=== PATIENT | female | born 1970 | race Caucasian/White ===

== ENCOUNTER → 2017-08-24 08:37 | Outpatient (CLI) | payer BC, SELFPAY ==
[2017-08-24 10:22] LABS: Absolute Neutrophil Count 3.5 X10^3/uL (2.0-7.7); Basophil# 0.01 X10^3/uL; Basophil% 0.2 % (0-1); Eosinophil# 0.01 X10^3/uL; Eosinophils% 0.2 % (0-5); Hematocrit 39.6 % (37-47); Hemoglobin 13.1 g/dl (12.0-15.0); Lymphocyte % 25.2 % (19-41); Mean Corp Hgb Conc 33.1 g/gl (32-36); Mean Corpuscular Hgb 29.8 pg (27.0-32.0); Mean Platelet Vol. 9.9 fl (6.2-12.0); Monocyte# 0.34 X10^3/uL; Monocyte% 6.6 % (0-10); Neutrophil # 3.48 X10^3/uL (2.7-7.7); Neutrophil % 67.6 % (47-70); Platelet Count 256 K/mm3 (150-450); RBC Distribution Width SD 42.6 fl (35.1-43.9); White Blood Count 5.2 K/mm3 (4.4-11.0)
[2017-08-24 10:25] LABS: POSITIVE COUNT NO; POSITIVE DIFFERENTIAL NO; POSITIVE MORPHOLOGY NO
[2017-08-24 10:50] LABS: Microalbumin,Random Urine 7.8 mg/L (NO RANGE EST.); Microalbumin:Creatinine Ratio 5.7 mg/g CRE (<30 mg/g CRE)
[2017-08-24 10:58] LABS: Hemoglobin A1c 5.4 % (4.2-6.3)
[2017-08-24 11:00] LABS: ALB/GLOB Ratio 0.8 RATIO (0.9-2.4); AST(SGOT) 7 U/L (15-37); Alanine Aminotransfer ALT/SGPT 11 U/L (13-56); Albumin, Serum 3.3 g/dL (3.2-5.0); Alkaline Phosphatase 42 U/L (45-117); Anion Gap 8 (5-15); BUN 12 mg/dL (7-18); BUN/Creat Ratio 15.4 RATIO (10-20); Calcium,Total 8.5 mg/dL (8.5-10.1); Chloride 105 mmol/L (98-107); Cholesterol 216 mg/dL (200); Creatinine, Serum 0.78 mg/dL (0.55-1.02); EST Glomerular Filtration Rate 85 mL/min (>60); Est Glom Filt Rate - Afr Amer 103 mL/min (>60); Globulin 3.9 g/dL (2.2-4.2); Glucose 95 mg/dL (74-106); High Density Lipoprotein 53 mg/dL; Magnesium 2.1 mg/dL (1.6-2.6); Potassium 4.1 mmol/L (3.5-5.1); Protein, Total 7.2 g/dL (6.4-8.2); Sodium Level 139 mmol/L (136-145); Thyroid Stim Hormone (TSH) 1.25 uIU/mL (0.358-3.74); Triglycerides 107 mg/dL; Very Low Density Lipoprotein 21 mg/dL (5-40)
== END ==
PROVIDERS: Family Provider Family Medicine; PCP Family Medicine; Visit Provider Family Medicine
DX: E88.81 Metabolic syndrome and other insulin resistance (principal); M79.7 Fibromyalgia
CPT/HCPCS: 36415; 80053; 80061; 82043; 82570; 83036; 83735; 84443; 85025

== ENCOUNTER → 2017-09-17 09:14 | Outpatient (CLI) | payer BC, SELFPAY ==
[2017-09-17 10:48] LABS: Vitamin B12 304 pg/mL (211-911); Vitamin D,25 Hydroxy 32.4 ng/mL (29.95-100.01)
== END ==
PROVIDERS: Visit Provider Family Medicine
DX: E55.9 Vitamin D deficiency, unspecified (principal); R53.83 Other fatigue
CPT/HCPCS: 36415; 82306; 82607; 82746

== ENCOUNTER → 2017-09-24 10:24 | Outpatient (CLI) | payer BC, SELFPAY ==
[2017-09-24 12:28] LABS: ALB/GLOB Ratio 0.9 RATIO (0.9-2.4); AST(SGOT) 10 U/L (15-37); Alanine Aminotransfer ALT/SGPT 13 U/L (13-56); Albumin, Serum 3.5 g/dL (3.2-5.0); Alkaline Phosphatase 47 U/L (45-117); Anion Gap 8 (5-15); BUN 11 mg/dL (7-18); BUN/Creat Ratio 12.6 RATIO (10-20); Calcium,Total 8.5 mg/dL (8.5-10.1); Chloride 103 mmol/L (98-107); Creatinine, Serum 0.87 mg/dL (0.55-1.02); EST Glomerular Filtration Rate 74 mL/min (>60); Est Glom Filt Rate - Afr Amer 90 mL/min (>60); Globulin 3.9 g/dL (2.2-4.2); Glucose 83 mg/dL (74-106); Protein, Total 7.4 g/dL (6.4-8.2); Sodium Level 136 mmol/L (136-145)
[2017-09-24 12:43] LABS: Hemoglobin A1c 5.4 % (4.2-6.3)
== END ==
PROVIDERS: Family Provider Family Medicine; PCP Family Medicine; Visit Provider Family Medicine
DX: E88.81 Metabolic syndrome and other insulin resistance (principal)
CPT/HCPCS: 36415; 80053; 83036

== ENCOUNTER → 2017-10-01 12:56 | Outpatient (CLI) | payer BC, SELFPAY ==
--- NOTE | 2017-10-01 13:00 | RAD_ITS ---
STUDY: X-RAY - PARANASAL SINUSES REASON FOR EXAM: Female, 47 years old. Recurrent sinus infection. TECHNIQUE: 3 view(s) of the paranasal sinuses were obtained. COMPARISON: None. FINDINGS: Normal visualized frontal, maxillary, ethmoidal and sphenoid sinuses. Normal visualized facial bones. The soft tissue structures are unremarkable. RAD/Sinuses min 3 Views IMPRESSION: No evidence of definitive paranasal sinus opacity or fluid layering. Electronically Signed: Louis Pérez DO at 20:58 EDT , Service support ,
== END ==
PROVIDERS: Family Provider Family Medicine; PCP Family Medicine; Visit Provider Family Medicine
DX: R42 Dizziness and giddiness (principal)
CPT/HCPCS: 70220

== ENCOUNTER → 2018-03-05 08:23 | Outpatient (CLI) | payer BC, SELFPAY ==
[2018-03-05 10:39] LABS: Absolute Lymphocyte Count 1.31 X10^3/ul (0.83-4.51); Absolute Neutrophil Count 3.5 X10^3/uL (2.0-7.7); Basophil# 0.04 X10^3/uL; Basophil% 0.8 % (0-1); Hematocrit 38.9 % (37-47); Hemoglobin 12.7 g/dl (12.0-15.0); Lymphocyte # 1.31 X10^3/ul (4.0); Lymphocyte % 25.2 % (19-41); Mean Corp Hgb Conc 32.6 g/gl (32-36); Mean Corpuscular Hgb 29.2 pg (27.0-32.0); Mean Corpuscular Volume 89.4 fL (81-99); Mean Platelet Vol. 9.3 fl (6.2-12.0); Monocyte# 0.33 X10^3/uL; Monocyte% 6.3 % (0-10); Neutrophil # 3.51 X10^3/uL (2.7-7.7); Neutrophil % 67.5 % (47-70); Platelet Count 244 K/mm3 (150-450); RBC Distribution Width CV 12.9 % (11.6-14.6); RBC Distribution Width SD 42.3 fl (35.1-43.9); Red Blood Count 4.35 M/mm3 (4.2-5.4); White Blood Count 5.2 K/mm3 (4.4-11.0)
[2018-03-05 10:41] LABS: POSITIVE COUNT NO; POSITIVE DIFFERENTIAL NO; POSITIVE MORPHOLOGY NO
[2018-03-05 11:34] LABS: ALB/GLOB Ratio 0.8 RATIO (0.9-2.4); AST(SGOT) 10 U/L (15-37); Alanine Aminotransfer ALT/SGPT 11 U/L (13-56); Albumin, Serum 2.9 g/dL (3.2-5.0); Alkaline Phosphatase 43 U/L (45-117); Anion Gap 12 (5-15); BUN 12 mg/dL (7-18); Calcium,Total 8.4 mg/dL (8.5-10.1); Chloride 106 mmol/L (98-107); Creatinine, Serum 0.75 mg/dL (0.55-1.02); EST Glomerular Filtration Rate 88 mL/min (>60); Est Glom Filt Rate - Afr Amer 107 mL/min (>60); Free T3 2.6 pg/mL (2.18-3.98); Globulin 3.7 g/dL (2.2-4.2); Glucose 85 mg/dL (74-106); Potassium 3.9 mmol/L (3.5-5.1); Protein, Total 6.6 g/dL (6.4-8.2); Sodium Level 142 mmol/L (136-145); T4 Free Direct 1.05 ng/dL (0.76-1.46); Thyroid Stim Hormone (TSH) 2.53 uIU/mL (0.358-3.74)
== END ==
LOC: MTLAB 08:32 → MFPLAB 08:59
PROVIDERS: Family Provider Family Medicine; PCP Family Medicine; Visit Provider Family Medicine
DX: E03.9 Hypothyroidism, unspecified (principal); M79.7 Fibromyalgia
CPT/HCPCS: 36415; 80053; 84439; 84443; 84481; 85025

== ENCOUNTER → 2018-06-07 09:01 | Outpatient (CLI) | payer BC, SELFPAY ==
[2018-06-07 10:15] LABS: Absolute Lymphocyte Count 1.29 X10^3/ul (0.83-4.51); Absolute Neutrophil Count 4.6 X10^3/uL (2.0-7.7); Basophil# 0.02 X10^3/uL; Basophil% 0.3 % (0-1); Hematocrit 40.1 % (37-47); Hemoglobin 13.2 g/dl (12.0-15.0); Lymphocyte # 1.29 X10^3/ul (4.0); Lymphocyte % 20.8 % (19-41); Mean Corp Hgb Conc 32.9 g/gl (32-36); Mean Corpuscular Hgb 28.9 pg (27.0-32.0); Mean Corpuscular Volume 87.9 fL (81-99); Mean Platelet Vol. 9.5 fl (6.2-12.0); Monocyte# 0.29 X10^3/uL; Monocyte% 4.7 % (0-10); Neutrophil # 4.59 X10^3/uL (2.7-7.7); Neutrophil % 74.2 % (47-70); Platelet Count 256 K/mm3 (150-450); RBC Distribution Width CV 12.9 % (11.6-14.6); RBC Distribution Width SD 41.7 fl (35.1-43.9); Red Blood Count 4.56 M/mm3 (4.2-5.4); White Blood Count 6.2 K/mm3 (4.4-11.0)
[2018-06-07 10:16] LABS: POSITIVE COUNT NO; POSITIVE DIFFERENTIAL NO; POSITIVE MORPHOLOGY NO
[2018-06-07 10:26] LABS: Erythrocyte Sedimentation Rate 14 mm/hr (0-20)
[2018-06-07 10:41] LABS: Vitamin D,25 Hydroxy 30.9 ng/mL (29.95-100.01)
[2018-06-07 10:56] LABS: ALB/GLOB Ratio 0.8 RATIO (0.9-2.4); AST(SGOT) 14 U/L (15-37); Alanine Aminotransfer ALT/SGPT 15 U/L (13-56); Albumin, Serum 3.4 g/dL (3.2-5.0); Alkaline Phosphatase 49 U/L (45-117); Anion Gap 11 (5-15); BUN 11 mg/dL (7-18); BUN/Creat Ratio 13.5 RATIO (10-20); Calcium,Total 8.9 mg/dL (8.5-10.1); Chloride 107 mmol/L (98-107); Creatinine, Serum 0.82 mg/dL (0.55-1.02); EST Glomerular Filtration Rate 80 mL/min (>60); Est Glom Filt Rate - Afr Amer 97 mL/min (>60); Globulin 4.1 g/dL (2.2-4.2); Glucose 91 mg/dL (74-106); Magnesium 1.9 mg/dL (1.6-2.6); Potassium 4.3 mmol/L (3.5-5.1); Protein, Total 7.5 g/dL (6.4-8.2); Rheumatoid Factor < 10.0 IU/mL (<15); Sodium Level 139 mmol/L (136-145); Uric Acid 4.9 mg/dL (2.6-6.0)
[2018-06-10 15:25] LABS: ANTINUCLEAR ANTIBODIES DIRECT Negative (Negative)
--- OUTSIDE RECORDS SUMMARY | 2018-07-23 22:14 | XMS RPT_ITS ---
:1970 Author Organization OH[employer] Support Name Relationship Address Phone JULEE TURPIN Unavailable [address] + [place] [address] [employer] Unavailable [address] [phone] [place] [address] JULEE TURPIN Unavailable [address] + [place] [address] [employer] Unavailable [address] [phone] [place] [address] MAYANK COLLINS Unavailable / [phone] [place] [address] JULEE TURPIN Unavailable [address] [phone] [place] [address] [employer] Unavailable [address] [phone] [place] [address] MAYANK COLLINS Unavailable / [phone] [place] [address] JULEE TURPIN Unavailable [address] [phone] [place] [address] [employer] Unavailable [address] [phone] [place] [address] MAYANK COLLINS Unavailable / [phone] [place] [address] JULEE TURPIN Unavailable [address] [phone] [place] [address] [employer] Unavailable [address] [phone] [place] [address] MAYANK COLLINS Unavailable / [phone] [place] [address] JULEE TURPIN Unavailable [address] [phone] [place] [address] [employer] Unavailable [address] [phone] [place] [address] Care Team Providers Name Role Phone BASILIO LONG Attending Unavailable Walton, Aroldo Attending Unavailable Walton, Aroldo Primary Care Unavailable Walton, Aroldo Attending Unavailable Walton, Aroldo Primary Care Unavailable Matthew Zayas Attending Unavailable Walton, Aroldo Attending Unavailable Walton, Aroldo Primary Care Unavailable Walton, Aroldo Attending Unavailable Walton, Aroldo Referring Unavailable Walton, Aroldo Primary Care Unavailable Walton, Aroldo Attending Unavailable Walton, Aroldo Referring Unavailable Walton, Aroldo Primary Care Unavailable PROBLEMS PROBLEMS DATE TYPE CONDITION / CODE ATTENDING STATUS SOURCE 06/07/2018 Unknown M25.40 - Effusion, Walton, Aroldo Active [facility] unspecified joint Community / M25.40(ICD-10) Hospital Repository 03/05/2018 Unknown E03.9 - Walton, Aroldo Active [facility] Hypothyroidism, Community unspecified / Hospital E03.9(ICD-10) Repository 03/05/2018 Unknown M79.7 - Walton, Aroldo Active [place] Fibromyalgia / Community M79.7(ICD-10) Hospital Repository 10/01/2017 Unknown R42 - Dizziness Walton, Aroldo Active [facility] and giddiness / Community R42(ICD-10) Hospital Repository 09/24/2017 Unknown E88.81 - Metabolic Walton, Aroldo Active [place] syndrome / Community E88.81(ICD-10) Hospital Repository 09/24/2017 Unknown 277.7 - Walton, Aroldo Active [facility] Dysmetabolic Community syndrome X / Hospital 277.7(ICD-9) Repository PROCEDURES PROCEDURES No Procedure Records FoundRESULTS RESULTS CBC W/DIFF, AUTOMATED Collected: 06/07/2018 Status: F Source: [place] 9:02 AM [facility] REPOSITORY TYPE CODE TESTS RESULT OUT OF RANGE REFERENCE UNITS LAB L100.1000 4.4-11.0 K/mm3 Normal WBC 6.2 LAB L100.1200 4.2-5.4 M/mm3 Normal RBC 4.56 LAB L100.1300 12.0-15.0 g/dl Normal HGB 13.2 LAB L100.1400 37-47 % Normal HCT 40.1 LAB L100.1500 81-99 fL Normal MCV 87.9 LAB L100.1600 27.0-32.0 pg Normal MCH 28.9 LAB L100.1700 32-36 g/gl Normal MCHC 32.9 LAB L100.1810 11.6-14.6 % Normal RDW CV 12.9 LAB L100.1820 35.1-43.9 fl Normal RDW SD 41.7 LAB L100.1900 150-450 K/mm3 Normal PLT 256 LAB L100.2000 6.2-12.0 fl Normal MPV 9.5 LAB L100.2100 47-70 % High NEUT% 74.2 LAB L100.2200 19-41 % Normal LY% 20.8 LAB L100.2300 0-10 % Normal MONO% 4.7 LAB L100.2400 0-5 % Normal EO% 0.0 LAB L100.2500 0-1 % Normal BASO% 0.3 LAB L100.2550 0.0-0.9 % Normal IM GRAN % 0.000 Result Comment: IG% - Immature Granulocytes (promyelocytes, myelocytes and metamyelocytes) > 1% indicates that a LEFT SHIFT is Present. LAB L100.2620 2.0-7.7 X10 3/uL Normal Absolute Neut 4.6 LAB L100.2720 0.83-4.51 X10 3/ul Normal Absolute Lymph 1.29 Performed By: #### L100.0100, L101.9900, L506.1000, L500.4050, L501.1400, L501.5200, L501.9520, L505.7010 #### [facility] [address] [place] [address]. [place], [place], [id number] #### L3100.5475 #### [facility] (refer to report for specific site) refer to report for address and phone number ERYTHROCYTE SED RATE Collected: 06/07/2018 Status: F Source: [place] 9:02 AM [facility] REPOSITORY TYPE CODE TESTS RESULT OUT OF RANGE REFERENCE UNITS LAB L102.0000 0-20 mm/hr Normal SED RATE 14 Performed By: #### L100.0100, L101.9900, L506.1000, L500.4050, L501.1400, L501.5200, L501.9520, L505.7010 #### [facility] [address] [facility] [place], [place], [address] #### L3100.5475 #### [facility] (refer to report for specific site) refer to report for address and phone number VITAMIN D,25 HYDROXY Collected: 06/07/2018 Status: F Source: [place] 9:02 AM [facility] REPOSITORY TYPE CODE TESTS RESULT OUT OF RANGE REFERENCE UNITS LAB L506.1000 29.95-100.01 ng/mL Normal Vitamin D 30.9 25-OH Result Comment: Vitamin D 25(OH) Status Range Deficiency <20 ng/mL (50nmol/L) Insuffciency 20 - 30 ng/mL (50 - 75 nmol/L) Sufficiency 30 - 100 ng/mL (75 - 250 nmol/L) Toxicity >100 ng/mL (>250 nmol/L) Performed By: #### L100.0100, L101.9900, L506.1000, L500.4050, L501.1400, L501.5200, L501.9520, L505.7010 #### [facility] [address] [facility] [place], [address] #### L3100.5475 #### [facility] (refer to report for specific site) refer to report for address and phone number COMPREHENSIVE METABOLIC Collected: 06/07/2018 Status: F Source: [facility] 9:02 AM [facility] REPOSITORY TYPE CODE TESTS RESULT OUT OF RANGE REFERENCE UNITS LAB L501.0100 74-106 mg/dL Normal GLU 91 Result Comment: Please note revised GLUCOSE reference range effective 2017. LAB L501.1000 7-18 mg/dL Normal BUN 11 LAB L501.1100 0.55-1.02 mg/dL Normal CREAT,SERUM 0.82 Result Comment: The validity of the calculated GFR AND GFRAA in patients over 70 years has not been determined. Clinical correlation is essential. LAB L501.1110 >60 mL/min Normal EST GFR 80 Result Comment: Non- GFR Calc LAB L501.1115 >60 mL/min Normal EST GFR - AA 97 Result Comment: GFR Calc LAB L501.1300 10-20 RATIO Normal BUN/CRE 13.5 LAB L501.1500 6.4-8.2 g/dL T Normal PROT 7.5 LAB L501.1800 3.2-5.0 g/dL Normal ALB 3.4 LAB L501.1950 2.2-4.2 g/dL Normal GLOB 4.1 LAB L501.2000 0.9-2.4 RATIO Low A/G 0.8 LAB L501.2200 8.5-10.1 mg/dL CA Normal 8.9 LAB L501.4100 15-37 U/L Low AST 14 LAB L501.4305 45-117 U/L Normal ALK P 49 LAB L501.4405 13-56 U/L Normal ALT 15 LAB L501.4600 0.20-1.00 mg/dL T Normal BILI 0.20 LAB L501.5300 136-145 mmol/L NA Normal 139 LAB L501.5600 3.5-5.1 mmol/L K Normal 4.3 LAB L501.5900 98-107 mmol/L CL Normal 107 LAB L501.6100 21.0-32.0 mmol/L Normal CO2 21.0 LAB L501.6200 5-15 Normal GAP 11 Performed By: #### L100.0100, L101.9900, L506.1000, L500.4050, L501.1400, L501.5200, L501.9520, L505.7010 #### [facility] [address] [facility] [place], [place], [address] #### L3100.5475 #### [facility] (refer to report for specific site) refer to report for address and phone number URIC ACID Collected: 06/07/2018 Status: F Source: [place] 9:02 AM [facility] REPOSITORY TYPE CODE TESTS RESULT OUT OF RANGE REFERENCE UNITS LAB L501.1400 2.6-6.0 mg/dL Normal URIC 4.9 Result Comment: The drugs N-Acetylcysteine and Metamizole may falsely depress this assay. Performed By: #### L100.0100, L101.9900, L506.1000, L500.4050, L501.1400, L501.5200, L501.9520, L505.7010 #### [facility] [address] [place] [address], [id number] #### L3100.5475 #### [facility] (refer to report for specific site) refer to report for address and phone number MAGNESIUM Collected: 06/07/2018 Status: F Source: [place] 9:02 AM [facility] REPOSITORY TYPE CODE TESTS RESULT OUT OF RANGE REFERENCE UNITS LAB L501.5200 1.6-2.6 mg/dL Normal MG 1.9 Performed By: #### L100.0100, L101.9900, L506.1000, L500.4050, L501.1400, L501.5200, L501.9520, L505.7010 #### [facility] [address] [place] [address], [address] #### L3100.5475 #### [facility] (refer to report for specific site) refer to report for address and phone number THYROID STIM HORMONE Collected: 06/07/2018 Status: F Source: [place] (TSH) 9:02 AM [facility] REPOSITORY TYPE CODE TESTS RESULT OUT OF RANGE REFERENCE UNITS LAB L501.9520 0.358-3.74 uIU/mL Normal TSH 1.20 Performed By: #### L100.0100, L101.9900, L506.1000, L500.4050, L501.1400, L501.5200, L501.9520, L505.7010 #### [facility] [address] [place] [address], [id number] #### L3100.5475 #### [facility] (refer to report for specific site) refer to report for address and phone number RHEUMATOID FACTOR Collected: 06/07/2018 Status: F Source: [place] 9:02 AM [facility] REPOSITORY TYPE CODE TESTS RESULT OUT OF RANGE REFERENCE UNITS LAB L505.7010 <15 IU/mL Normal RHEUMATOID FAC < 10.0 Performed By: #### L100.0100, L101.9900, L506.1000, L500.4050, L501.1400, L501.5200, L501.9520, L505.7010 #### [facility] [address] [place], [place], [address] #### L3100.5475 #### [facility] (refer to report for specific site) refer to report for address and phone number ANTINUCLEAR ANTIBODIES Collected: 06/07/2018 Status: F Source: [place] DIRECT 9:02 AM [facility] REPOSITORY TYPE CODE TESTS RESULT OUT OF RANGE REFERENCE UNITS LAB L3100.5475 Negative Normal Negative VICKEY-DIRECT Result Comment: Performed at: - [facility] [id number] Time Signal Wirer: Jairo Hardy PhD, Phone: [phone] Performed By: #### L100.0100, L101.9900, L506.1000, L500.4050, L501.1400, L501.5200, L501.9520, L505.7010 #### [facility] [address] [place], [place], [address] #### L3100.5475 #### [facility] (refer to report for specific site) refer to report for address and phone number CRP Collected: 06/07/2018 Status: F Source: [place] 9:02 AM [facility] REPOSITORY TYPE CODE TESTS RESULT OUT OF RANGE REFERENCE UNITS LAB L501.6710 0.0-3.0 mg/L High 10.40 C-REACTIVE PROT Result Comment: C-Reactive Protein (CRP) provides useful information for the diagnosis, therapy and monitoring of inflammatory processes and associated diseases. For the evaluation of Relative Risk for Cardiovascular Disease, a High Sensitivity CRP (HSCRP) should be ordered. Performed By: #### L501.6710 #### [facility] [address] [place], [place], [id number] CBC W/DIFF, AUTOMATED Collected: 03/05/2018 Status: F Source: [place] 9:00 AM [facility] REPOSITORY TYPE CODE TESTS RESULT OUT OF RANGE REFERENCE UNITS LAB L100.1000 4.4-11.0 K/mm3 Normal WBC 5.2 LAB L100.1200 4.2-5.4 M/mm3 Normal RBC 4.35 LAB L100.1300 12.0-15.0 g/dl Normal HGB 12.7 LAB L100.1400 37-47 % Normal HCT 38.9 LAB L100.1500 81-99 fL Normal MCV 89.4 LAB L100.1600 27.0-32.0 pg Normal MCH 29.2 LAB L100.1700 32-36 g/gl Normal MCHC 32.6 LAB L100.1810 11.6-14.6 % Normal RDW CV 12.9 LAB L100.1820 35.1-43.9 fl Normal RDW SD 42.3 LAB L100.1900 150-450 K/mm3 Normal PLT 244 LAB L100.2000 6.2-12.0 fl Normal MPV 9.3 LAB L100.2100 47-70 % Normal NEUT% 67.5 LAB L100.2200 19-41 % Normal LY% 25.2 LAB L100.2300 0-10 % Normal MONO% 6.3 LAB L100.2400 0-5 % Normal EO% 0.0 LAB L100.2500 0-1 % Normal BASO% 0.8 LAB L100.2550 0.0-0.9 % Normal IM GRAN % 0.200 Result Comment: IG% - Immature Granulocytes (promyelocytes, myelocytes and metamyelocytes) > 1% indicates that a LEFT SHIFT is Present. LAB L100.2620 2.0-7.7 X10 3/uL Normal Absolute Neut 3.5 LAB L100.2720 0.83-4.51 X10 3/ul Normal Absolute Lymph 1.31 Performed By: #### L100.0100 #### [facility] [place], [address] COMPREHENSIVE METABOLIC Collected: 03/05/2018 Status: F Source: [facility] 9:00 AM [facility] REPOSITORY TYPE CODE TESTS RESULT OUT OF RANGE REFERENCE UNITS LAB L501.0100 74-106 mg/dL Normal GLU 85 Result Comment: Please note revised GLUCOSE reference range effective 2017. LAB L501.1000 7-18 mg/dL Normal BUN 12 LAB L501.1100 0.55-1.02 mg/dL Normal CREAT,SERUM 0.75 Result Comment: The validity of the calculated GFR AND GFRAA in patients over 70 years has not been determined. Clinical correlation is essential. LAB L501.1110 >60 mL/min Normal EST GFR 88 Result Comment: Non- GFR Calc LAB L501.1115 >60 mL/min Normal EST GFR - AA 107 Result Comment: GFR Calc LAB L501.1300 10-20 RATIO Normal BUN/CRE 16.0 LAB L501.1500 6.4-8.2 g/dL T Normal PROT 6.6 LAB L501.1800 3.2-5.0 g/dL Low ALB 2.9 LAB L501.1950 2.2-4.2 g/dL Normal GLOB 3.7 LAB L501.2000 0.9-2.4 RATIO Low A/G 0.8 LAB L501.2200 8.5-10.1 mg/dL Low CA 8.4 LAB L501.4100 15-37 U/L Low AST 10 LAB L501.4305 45-117 U/L Low ALK P 43 LAB L501.4405 13-56 U/L Low ALT 11 LAB L501.4600 0.20-1.00 mg/dL T Normal BILI 0.20 LAB L501.5300 136-145 mmol/L NA Normal 142 LAB L501.5600 3.5-5.1 mmol/L K Normal 3.9 LAB L501.5900 98-107 mmol/L CL Normal 106 LAB L501.6100 21.0-32.0 mmol/L Normal CO2 24.0 LAB L501.6200 5-15 Normal GAP 12 Performed By: #### L500.4050, L501.00726, L501.9520, L506.0400 #### [facility] [address] [place], [place], [id number] FREE T3 Collected: 03/05/2018 Status: F Source: [place] 9:00 AM [facility] REPOSITORY TYPE CODE TESTS RESULT OUT OF RANGE REFERENCE UNITS LAB L501.25658 2.18-3.98 pg/mL Normal FREE T3 2.6 Performed By: #### L500.4050, L501.41026, L501.9520, L506.0400 #### [facility] [address] [place], [address] THYROID STIM HORMONE Collected: 03/05/2018 Status: F Source: [place] (TSH) 9:00 AM [facility] REPOSITORY TYPE CODE TESTS RESULT OUT OF RANGE REFERENCE UNITS LAB L501.9520 0.358-3.74 uIU/mL Normal TSH 2.53 Performed By: #### L500.4050, L501.84439, L501.9520, L506.0400 #### [facility] [address] [place], [address] T4 FREE DIRECT Collected: 03/05/2018 Status: F Source: [place] 9:00 AM [facility] REPOSITORY TYPE CODE TESTS RESULT OUT OF RANGE REFERENCE UNITS LAB L506.0400 0.76-1.46 ng/dL Normal T4 FREE 1.05 DIRECT Performed By: #### L500.4050, L501.71256, L501.9520, L506.0400 #### [facility] [address] [place], [address] SINUSES MIN 3 VIEWS Observed: 10/01/2017 Status: F Source: [place] 1:00 PM [facility] REPOSITORY [facility] Imaging Services [address] [place] [address] Sinuses min 3 Views MR#: [id number] Acct: [id number] Name: ROMEO TURPIN Rep #: [id number] : 1970 F 47 From: Louis Pérez DO PCP: Aroldo Walton MD Status: REG CLI Study: Sinuses min 3 Views Date of Exam: 10/01/17 Exam# [id number] Ordering Dr: Aroldo Walton MD STUDY: X-RAY - PARANASAL SINUSES REASON FOR EXAM: Female, 47 years old. Recurrent sinus infection. TECHNIQUE: 3 view(s) of the paranasal sinuses were obtained. COMPARISON: None. FINDINGS: Normal visualized frontal, maxillary, ethmoidal and sphenoid sinuses. Normal visualized facial bones. The soft tissue structures are unremarkable. RAD/Sinuses min 3 Views IMPRESSION: No evidence of definitive paranasal sinus opacity or fluid layering. Electronically Signed: Louis DO Beto at 20:58 EDT , Service support , CC: Aroldo Walton MD Time Broker: Signed COMPREHENSIVE METABOLIC Collected: 09/24/2017 Status: F Source: [place] PROFIL 10:13 AM [facility] REPOSITORY Order Comment: Order Date: 09/24/17 Order Info: 0786-1 - CMP TYPE CODE TESTS RESULT OUT OF RANGE REFERENCE UNITS LAB L501.0100 74-106 mg/dL Normal GLU 83 Result Comment: Please note revised GLUCOSE reference range effective 2017. LAB L501.1000 7-18 mg/dL Normal BUN 11 LAB L501.1100 0.55-1.02 mg/dL Normal CREAT,SERUM 0.87 Result Comment: The validity of the calculated GFR AND GFRAA in patients over 70 years has not been determined. Clinical correlation is essential. LAB L501.1110 >60 mL/min Normal EST GFR 74 Result Comment: Non- GFR Calc LAB L501.1115 >60 mL/min Normal EST GFR - AA 90 Result Comment: GFR Calc LAB L501.1300 10-20 RATIO Normal BUN/CRE 12.6 LAB L501.1500 6.4-8.2 g/dL T Normal PROT 7.4 LAB L501.1800 3.2-5.0 g/dL Normal ALB 3.5 LAB L501.1950 2.2-4.2 g/dL Normal GLOB 3.9 LAB L501.2000 0.9-2.4 RATIO Normal A/G 0.9 LAB L501.2200 8.5-10.1 mg/dL CA Normal 8.5 LAB L501.4100 15-37 U/L Low AST 10 LAB L501.4305 45-117 U/L Normal ALK P 47 LAB L501.4405 13-56 U/L Normal ALT 13 Result Comment: Please note revised ALT reference range effective 2017. LAB L501.4600 0.20-1.00 mg/dL Normal T BILI 0.20 LAB L501.5300 136-145 mmol/L Normal NA 136 LAB L501.5600 3.5-5.1 mmol/L Normal K 4.0 LAB L501.5900 98-107 mmol/L Normal CL 103 LAB L501.6100 21.0-32.0 mmol/L Normal CO2 25.0 LAB L501.6200 5-15 Normal GAP 8 Performed By: #### L500.4050, L501.9985 #### [facility] [address] [place], [address] HEMOGLOBIN A1C Collected: 09/24/2017 Status: F Source: [place] 10:13 AM [facility] REPOSITORY Order Comment: Order Date: 09/24/17 Order Info: 4548-4 - A1C TYPE CODE TESTS RESULT OUT OF RANGE REFERENCE UNITS LAB L501.9985 4.2-6.3 % Normal HGB A1C 5.4 Performed By: #### L500.4050, L501.9985 #### [facility] [address] [place], [address] VITAMIN B12 Collected: 09/17/2017 Status: F Source: [place] 9:15 AM [facility] REPOSITORY Order Comment: Order Date: 09/17/17 Order Info: 2132-9 - B12 Order Info: 68916-2 - VITD25 TYPE CODE TESTS RESULT OUT OF RANGE REFERENCE UNITS LAB L503.0105 211-911 pg/mL Normal Vitamin B12 304 Performed By: #### L503.0105, L506.1000, L506.0250 #### [facility] [address] [place], [address] VITAMIN D,25 HYDROXY Collected: 09/17/2017 Status: F Source: [place] 9:15 AM [facility] REPOSITORY Order Comment: Order Date: 09/17/17 Order Info: 2132-9 - B12 Order Info: 24900-8 - VITD25 TYPE CODE TESTS RESULT OUT OF RANGE REFERENCE UNITS LAB L506.1000 29.95-100.01 ng/mL Normal Vitamin D 32.4 25-OH Result Comment: Vitamin D 25(OH) Status Range Deficiency <20 ng/mL (50nmol/L) Insuffciency 20 - 30 ng/mL (50 - 75 nmol/L) Sufficiency 30 - 100 ng/mL (75 - 250 nmol/L) Toxicity >100 ng/mL (>250 nmol/L) Performed By: #### L503.0105, L506.1000, L506.0250 #### [facility] [address] [place], [address] FOLATES, (FOLIC ACID) Collected: 09/17/2017 Status: F Source: [place] 9:15 AM [facility] REPOSITORY Order Comment: Order Date: 09/17/17 Order Info: 2284-8 - FOLS Is Patient Taking Vitamins or Folic Acid Supplements? N TYPE CODE TESTS RESULT OUT OF RANGE REFERENCE UNITS LAB L506.0250 3.1-55.4 ng/mL Normal FOLATES 11.20 Result Comment: Slight Hemolysis, Result may be falsely increased. Performed By: #### L503.0105, L506.1000, L506.0250 #### [facility] [address] [place], [place], [address] CBC W/DIFF, AUTOMATED Collected: 08/24/2017 Status: F Source: [place] 8:40 AM [facility] REPOSITORY TYPE CODE TESTS RESULT OUT OF RANGE REFERENCE UNITS LAB L100.1000 4.4-11.0 K/mm3 Normal WBC 5.2 LAB L100.1200 4.2-5.4 M/mm3 Normal RBC 4.40 LAB L100.1300 12.0-15.0 g/dl Normal HGB 13.1 LAB L100.1400 37-47 % Normal HCT 39.6 LAB L100.1500 81-99 fL Normal MCV 90.0 LAB L100.1600 27.0-32.0 pg Normal MCH 29.8 LAB L100.1700 32-36 g/gl Normal MCHC 33.1 LAB L100.1810 11.6-14.6 % Normal RDW CV 13.0 LAB L100.1820 35.1-43.9 fl Normal RDW SD 42.6 LAB L100.1900 150-450 K/mm3 Normal PLT 256 LAB L100.2000 6.2-12.0 fl Normal MPV 9.9 LAB L100.2100 47-70 % Normal NEUT% 67.6 LAB L100.2200 19-41 % Normal LY% 25.2 LAB L100.2300 0-10 % Normal MONO% 6.6 LAB L100.2400 0-5 % Normal EO% 0.2 LAB L100.2500 0-1 % Normal BASO% 0.2 LAB L100.2550 0.0-0.9 % Normal IM GRAN % 0.200 Result Comment: IG% - Immature Granulocytes (promyelocytes, myelocytes and metamyelocytes) > 1% indicates that a LEFT SHIFT is Present. LAB L100.2620 2.0-7.7 X10 3/uL Normal Absolute Neut 3.5 LAB L100.2720 0.83-4.51 X10 3/ul Normal Absolute Lymph 1.30 Performed By: #### L100.0100 #### [facility] [address] [address] [place], [place], [id number] MICROALB:CREAT Collected: 08/24/2017 Status: F Source: [facility] UR 8:40 AM [facility] REPOSITORY TYPE CODE TESTS RESULT OUT OF RANGE REFERENCE UNITS LAB L501.1200 NO RANGE EST. mg/dL Normal UR CREAT 137.00 LAB L502.0500 NO RANGE EST. mg/L Normal 7.8 MICROALBUMIN ,UR LAB L502.0600 <30 mg/g CRE mg/g CRE Normal 5.7 MALB:CREAT Performed By: #### L502.0250 #### [facility] [address] [address] [place], [place], [address] HEMOGLOBIN A1C Collected: 08/24/2017 Status: F Source: [place] 8:40 AM [facility] REPOSITORY TYPE CODE TESTS RESULT OUT OF RANGE REFERENCE UNITS LAB L501.9985 4.2-6.3 % Normal HGB A1C 5.4 Performed By: #### L501.9985 #### [facility] [address] [facility] [address] [place], [place], [address] COMPREHENSIVE METABOLIC Collected: 08/24/2017 Status: F Source: [place] PROFIL 8:40 AM [facility] REPOSITORY TYPE CODE TESTS RESULT OUT OF RANGE REFERENCE UNITS LAB L501.0100 74-106 mg/dL Normal GLU 95 Result Comment: Please note revised GLUCOSE reference range effective 2017. LAB L501.1000 7-18 mg/dL Normal BUN 12 LAB L501.1100 0.55-1.02 mg/dL Normal CREAT,SERUM 0.78 Result Comment: The validity of the calculated GFR AND GFRAA in patients over 70 years has not been determined. Clinical correlation is essential. LAB L501.1110 >60 mL/min Normal EST GFR 85 Result Comment: Non- GFR Calc LAB L501.1115 >60 mL/min Normal EST GFR - AA 103 Result Comment: GFR Calc LAB L501.1300 10-20 RATIO Normal BUN/CRE 15.4 LAB L501.1500 6.4-8.2 g/dL T Normal PROT 7.2 LAB L501.1800 3.2-5.0 g/dL Normal ALB 3.3 LAB L501.1950 2.2-4.2 g/dL Normal GLOB 3.9 LAB L501.2000 0.9-2.4 RATIO Low A/G 0.8 LAB L501.2200 8.5-10.1 mg/dL CA Normal 8.5 LAB L501.4100 15-37 U/L Low AST 7 LAB L501.4305 45-117 U/L Low ALK P 42 LAB L501.4405 13-56 U/L Low ALT 11 Result Comment: Please note revised ALT reference range effective 2017. LAB L501.4600 0.20-1.00 mg/dL Normal T BILI 0.20 LAB L501.5300 136-145 mmol/L Normal NA 139 LAB L501.5600 3.5-5.1 mmol/L Normal K 4.1 LAB L501.5900 98-107 mmol/L Normal CL 105 LAB L501.6100 21.0-32.0 mmol/L Normal CO2 26.0 LAB L501.6200 5-15 Normal GAP 8 Performed By: #### L500.4050, L500.4100, L501.5200, L501.9520 #### [facility] [address] [place], [place], [id number] LIPID PROFILE Collected: 08/24/2017 Status: F Source: DANIEL 8:40 AM [facility] [place] REPOSITORY TYPE CODE TESTS RESULT OUT OF RANGE REFERENCE UNITS LAB L501.4900 200 mg/dL High CHOL 216 Result Comment: <200 mg/dL Desirable 200-240 mg/dL Borderline >240 mg/dL High Risk LAB L501.5000 mg/dL Normal TRIG 107 Result Comment: The drugs N-Acetylcysteine and Metamizole may falsely depress this assay. Serum Triglycerides Reference Interval Normal <150 mg/dL Borderline high 150 - 199 mg/dL High 200 - 499 mg/dL Very High > or = 500 mg/dL LAB L501.6400 mg/dL Normal HDL 53 Result Comment: The drugs N-Acetylcysteine and Metamizole may falsely depress this assay. Reference Range HDL <40 mg/dL Low HDL Cholesterol HDL >or= 60 mg/dL High HDL Cholesterol LAB L501.6500 0-130 mg/dL High LDL 142 LAB L501.6600 5-40 mg/dL Normal VLDL 21 Performed By: #### L500.4050, L500.4100, L501.5200, L501.9520 #### [facility] [address] [place], [place], [address] MAGNESIUM Collected: 08/24/2017 Status: F Source: DANIEL 8:40 AM [facility] REPOSITORY TYPE CODE TESTS RESULT OUT OF RANGE REFERENCE UNITS LAB L501.5200 1.6-2.6 mg/dL Normal MG 2.1 Result Comment: Please note revised Magnesium reference range effective 2017. Performed By: #### L500.4050, L500.4100, L501.5200, L501.9520 #### [facility] [address] [place], [place], [address] THYROID STIM HORMONE Collected: 08/24/2017 Status: F Source: DANIEL (TSH) 8:40 AM [facility] REPOSITORY TYPE CODE TESTS RESULT OUT OF RANGE REFERENCE UNITS LAB L501.9520 0.358-3.74 uIU/mL Normal TSH 1.25 Performed By: #### L500.4050, L500.4100, L501.5200, L501.9520 #### [facility] [address] [place], [address] PROGRESS Observed: 08/03/2017 Status: COMPLETED Source: MARSTON 11:04 AM [facility] [place] REPOSITORY HNO ID: [id number] Author: Basilio Long Service: (none) Author Type: Psychologist Type: Progress Notes Filed: 08/03/2017 12:37 PM Note Text: [facility] Progress Note Romeo Lucas Joe 08/03/2017 [id number] Provider: Basilio Long, PHD CPT Code: 82856 Psychiatric diagnostic evaluation Time: Approximately 50 minutes was spent in therapy. Parties Present: Patient Patient Presentation/Concerns: INITIAL VISIT Manic Depressive Disorder and on Lamictal about 8 years before that she had periods of irritability, reduced need for sleep, undisclosed affairs, and none of this since Lamictal She was born in [place].. family moved to [place] for father's job and pt went back to be w a boyfriend who she is now to with12 and 15 yo girls doing well is a bit gruff and they dont have much time between kids and both employed... 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 the woman was a close friend and the fellow now under her supervision also and her supervisees are having an affair.. he uses her in pts eyes Pt is having trouble supervising being ASSERTIVE Plan: work on assertiveness nxt time Manic episodes tend to be about 3/year w irritability and reduced sleep along w spending money lasting day to week; Depressive episodes tend to leave her in bed and time off work lasting days to weeks ... her psychiatrist is retiring and her PCP may be able to take over (Aroldo Walton) I wonder if lo dose Li++ may help smooth out her Manic Depressive Disorder or other meds she can take to mediate episodes Mental Status: Mood: variable Affect: mood-congruent Thoughts/Associations:goal directed Suicidal/Homicidal Ideation: None expressed or evidenced Other Observations: None Therapy Focus Self-care, Stress management and Mood/affect regulation MEDICATIONS: Per medical record: Current Outpatient Prescriptions: ARIPiprazole (ABILIFY) 10 mg tablet Take 1 tablet by mouth once daily. lamoTRIgine (LAMICTAL) 150 mg tablet Take 1 tablet by mouth once daily. cyclobenzaprine (FLEXERIL) 10 mg tablet Take 1 tablet by mouth three times daily as needed for Muscle Spasm. ibuprofen (MOTRIN) 800 mg tablet Take 1 tablet by mouth every 8 hours as needed for Pain (with food.). LEVAQUIN 500 MG TAB Take one(1) tablet daily. SULFACETAMIDE SODIUM-SULFUR 10 %-5 % LOTION bid face/jawline SELENIUM SULFIDE 2.5 % SHAMPOO qod face, chest, back, scalp as second lather--lather, wait 5 minutes, rinse off KLARON 10 % LOTION ZYRTEC 5 MG TAB prn FEXOFENADINE-PSEUDOEPHEDRINE SR 60 MG-120 MG 12 HR TAB prn No current facility-administered medications for this visit. Psychiatric Medication Issues: as noted DIAGNOSIS: Tracy I: Manic Depressive type II Adjustment, NOS Tracy II: deferred Tracy III: see med record Tracy IV: med regulation and work stress Tracy V: 55 Treatment Modality/Interventions: Cognitive Behavioral Reassurance/Supportive Problem solving Goal setting Psychoeducation TREATMENT ASSESSMENT/PROGRESS: . Progressing satisfactorily. TREATMENT PLAN/GOALS: Continue in therapy focusing on self- care and assertiveness skills. Next appointment: as scheduled Basilio Long, PHD ALLERGIES ALLERGIES DATE TYPE / CODE NAME / CODE REACTION SEVERITY SOURCE 03/18/2005 Drug PENICILLINS RASH [facility] Class/19509 [facility] 1003(SNOMED Repository CT) ENCOUNTERS ENCOUNTERS ADMIT/DISCHARGE ACCOUNT ADMITTING ENCOUNTER LOCATION SOURCE NUMBER [facility] 06/07/2018 [id number] [facility] ing:MFPLAB Repository 03/05/2018 [id number] [facility] ing:MFPLAB Repository 10/01/2017 [id number] [facility] ing:MTRAD Repository 09/24/2017 [id number] [facility] ing:MFPLAB Repository 09/17/2017 [id number] [facility] ing:MFPLAB Repository 08/24/2017 [id number] [facility] ing:MFPLAB Repository 08/03/2017/02/09 [id number] Ambulatory [address] Repository PAYERS PAYERS ENCOUNTER GUARANTOR PAYER SUBSCRIBER SOURCE 06/07/2018 SERGIO Lucas Daniel [id number] Insurance:ANTHEMPolic MEYERDOB: Community [place] y [place]: [id number] [id number] Repository 55817Vzv: ([phone]) Date:3516-42-19[phone] () [id number], [place] [address]QU: 06/07/2018 Secondary NOT GIVENUNK Daniel Insurance:SELF PAY [facility] Number: Effective Repository Date:2018-06-07 03/05/2018 SERGIO WALTERS J Daniel [id number] Insurance:ANTHEMPolic MEYERDOB: Community [place] y Number: [id number] [id number] Repository 32892Gxb: ([phone]) Date:1320-26-96[phone] () [id number], [place] [address]XJ: 03/05/2018 Secondary NOT GIVENUNK Daniel Insurance:SELF PAY [facility] Number: Effective Repository Date:2018-03-05 10/01/2017 Sergio WALTERS J Hiller [id number] Insurance:ANTHEMPolic MEYERDOB: Community [place] y Number: [id number] [id number] Repository 6[address]Xek: ([phone]) Date:0225-48-65[phone] () [id number], [place] [address]GR: 10/01/2017 Secondary NOT GIVENUNK Hiller Insurance:SELF PAY [facility] Number: Effective Repository Date:2017-10-01 09/24/2017 Sergio Lucas Primary ROMEO J Hiller [id number] Insurance:ANTHEMPolic MEYERDOB: Community [place] y Number: [id number], [place] [id number] Repository 987[address]Lir: ([phone]) Date:9770-14-40[phone] () [id number], [place] [address]ZS: 09/24/2017 Secondary NOT GIVENUNK Hiller Insurance:SELF PAY [facility] Number: Effective Repository Date:2017-09-24 09/17/2017 Sergio Lucas Primary ROMEO J Daniel [id number] Insurance:ANTHEMPolic MEYERDOB: Community [place] y Number: [id number], [place] [id number] Repository [address]Fjq: (330) Date:1263-09-63[phone] () [id number], [place] [address]FO: 09/17/2017 Secondary NOT GIVENUNK Hiller Insurance:SELF PAY [facility] Number: Effective Repository Date:2017-09-17 08/24/2017 Sergio J Primary ROMEO J Hiller [id number] Insurance:ANTHEMPolic MEYERDOB: Community [place] y Number: [id number], [place] [id number] Repository [address]Gpn: (330) Date:8950-31-08WC [phone] () [id number], [place] [address]KL: 08/24/2017 Secondary NOT GIVENUNK Daniel Insurance:SELF PAY [facility] Number: Effective Repository Date:2017-08-24
== END ==
PROVIDERS: Family Provider Family Medicine; PCP Family Medicine; Visit Provider Family Medicine
DX: M25.40 Effusion, unspecified joint (principal); R25.2 Cramp and spasm
CPT/HCPCS: 36415; 80053; 82306; 83735; 84443; 84550; 85025; 85652; 86038; 86140; 86431

== ENCOUNTER → 2018-08-30 08:43 | Outpatient (CLI) | payer BC, SELFPAY ==
[2018-08-30 10:07] LABS: Absolute Lymphocyte Count 1.38 X10^3/ul (0.83-4.51); Absolute Neutrophil Count 3.8 X10^3/uL (2.0-7.7); Basophil# 0.02 X10^3/uL; Basophil% 0.4 % (0-1); Hematocrit 40.2 % (37-47); Hemoglobin 13.1 g/dl (12.0-15.0); Lymphocyte # 1.38 X10^3/ul (4.0); Lymphocyte % 24.7 % (19-41); Mean Corp Hgb Conc 32.6 g/gl (32-36); Mean Corpuscular Hgb 29.4 pg (27.0-32.0); Mean Corpuscular Volume 90.1 fL (81-99); Mean Platelet Vol. 10.4 fl (6.2-12.0); Monocyte# 0.34 X10^3/uL; Monocyte% 6.1 % (0-10); Neutrophil # 3.83 X10^3/uL (2.7-7.7); Neutrophil % 68.6 % (47-70); Platelet Count 248 K/mm3 (150-450); RBC Distribution Width CV 13.7 % (11.6-14.6); RBC Distribution Width SD 44.1 fl (35.1-43.9); Red Blood Count 4.46 M/mm3 (4.2-5.4); White Blood Count 5.6 K/mm3 (4.4-11.0)
[2018-08-30 10:14] LABS: POSITIVE COUNT NO; POSITIVE DIFFERENTIAL NO; POSITIVE MORPHOLOGY NO
== END ==
PROVIDERS: Family Provider Family Medicine; PCP Family Medicine; Referring Provider Family Medicine; Visit Provider Family Medicine
DX: M79.7 Fibromyalgia (principal)
CPT/HCPCS: 36415; 85025; 86140

== ENCOUNTER → 2018-09-04 08:28 | Outpatient (CLI) | payer BC, SELFPAY ==
[2018-09-04 11:06] LABS: ALB/GLOB Ratio 1.1 RATIO (0.9-2.4); AST(SGOT) 29 U/L (15-37); Alanine Aminotransfer ALT/SGPT 53 U/L (13-56); Albumin, Serum 3.6 g/dL (3.2-5.0); Alkaline Phosphatase 55 U/L (45-117); Anion Gap 9 (5-15); BUN 10 mg/dL (7-18); BUN/Creat Ratio 12.6 RATIO (10-20); Calcium,Total 8.5 mg/dL (8.5-10.1); Chloride 107 mmol/L (98-107); EST Glomerular Filtration Rate 83 mL/min (>60); Est Glom Filt Rate - Afr Amer 100 mL/min (>60); Ferritin 93 ng/mL (8-252); Globulin 3.4 g/dL (2.2-4.2); Glucose 101 mg/dL (74-106); Sodium Level 138 mmol/L (136-145); T4 Free Direct 1.21 ng/dL (0.76-1.46); Thyroid Stim Hormone (TSH) 1.75 uIU/mL (0.358-3.74)
== END ==
PROVIDERS: Family Provider Family Medicine; PCP Family Medicine; Referring Provider Family Medicine; Visit Provider Family Medicine
DX: N93.8 Other specified abnormal uterine and vaginal bleeding (principal)
CPT/HCPCS: 36415; 80053; 82728; 84439; 84443

== ENCOUNTER → 2019-01-06 | Outpatient (CLI) | payer BC, SELFPAY ==
[2019-01-06 18:18] LABS: Absolute Lymphocyte Count 1.95 X10^3/ul (0.83-4.51); Absolute Neutrophil Count 8.7 X10^3/uL (2.0-7.7); Basophil# 0.02 X10^3/uL; Basophil% 0.2 % (0-1); Hemoglobin 13.1 g/dl (12.0-15.0); Lymphocyte # 1.95 X10^3/ul (4.0); Lymphocyte % 17.4 % (19-41); Mean Corp Hgb Conc 33.6 g/gl (32-36); Mean Corpuscular Volume 86.3 fL (81-99); Mean Platelet Vol. 9.5 fl (6.2-12.0); Monocyte# 0.56 X10^3/uL; Neutrophil # 8.66 X10^3/uL (2.7-7.7); Neutrophil % 77.1 % (47-70); Platelet Count 308 K/mm3 (150-450); RBC Distribution Width CV 13.4 % (11.6-14.6); RBC Distribution Width SD 41.7 fl (35.1-43.9); Red Blood Count 4.52 M/mm3 (4.2-5.4); White Blood Count 11.2 K/mm3 (4.4-11.0)
[2019-01-06 18:29] LABS: POSITIVE COUNT NO; POSITIVE DIFFERENTIAL NO; POSITIVE MORPHOLOGY NO
[2019-01-06 19:05] LABS: ALB/GLOB Ratio 0.8 RATIO (0.9-2.4); AST(SGOT) 12 U/L (15-37); Alanine Aminotransfer ALT/SGPT 12 U/L (13-56); Albumin, Serum 3.4 g/dL (3.2-5.0); Alkaline Phosphatase 58 U/L (45-117); Anion Gap 9 (5-15); BUN 14 mg/dL (7-18); BUN/Creat Ratio 15.2 RATIO (10-20); Calcium,Total 8.8 mg/dL (8.5-10.1); Chloride 103 mmol/L (98-107); Creatinine, Serum 0.92 mg/dL (0.55-1.02); EST Glomerular Filtration Rate 70 mL/min (>60); Est Glom Filt Rate - Afr Amer 85 mL/min (>60); Glucose 95 mg/dL (74-106); Magnesium 1.8 mg/dL (1.6-2.6); Potassium 3.8 mmol/L (3.5-5.1); Protein, Total 7.4 g/dL (6.4-8.2); Sodium Level 136 mmol/L (136-145); Thyroid Stim Hormone (TSH) 1.14 uIU/mL (0.358-3.74)
[2019-01-06 20:01] LABS: Vitamin B12 265 pg/mL (211-911)
[2019-01-08 14:38] LABS: ANTINUCLEAR ANTIBODIES DIRECT Negative (Negative)
== END | disposition home or self-care (01) ==
LOC: LAB 17:53
PROVIDERS: Family Provider Family Medicine; PCP Family Medicine; Referring Provider Family Medicine; Visit Provider Family Medicine
DX: E03.9 Hypothyroidism, unspecified (principal); R20.2 Paresthesia of skin; M79.7 Fibromyalgia; R79.89 Other specified abnormal findings of blood chemistry
CPT/HCPCS: 36415; 80053; 82607; 82746; 83735; 83921; 84443; 85025; 86038; 86140

== ENCOUNTER → 2019-03-10 15:43 | Outpatient (CLI) | payer BC, SELFPAY ==
[2019-03-05 15:57] VITALS: BMI 29.6
--- NOTE | 2019-03-10 15:45 | RAD_ITS ---
STUDY: X-RAY CHEST REASON FOR EXAM: Female, 48 years old. Cough. Cold like symptoms. TECHNIQUE: PA and lateral views of the chest. COMPARISON: None. FINDINGS: The lungs are clear and expanded. There is no demonstrated pleural abnormality. Normal size heart. Normal mediastinum and henry. Normal visualized pulmonary arteries. Normal visualized aortic arch and descending thoracic aorta. There are diffuse degenerative changes of the visualized thoracic spine. Normal visualized ribs, clavicles, and shoulders. There is no demonstrated abnormality of the visualized soft tissue structures of the upper abdomen. RAD/Chest PA and Lateral IMPRESSION: Normal x-ray examination of the chest. Electronically Signed: Anthoyn Montejo, at 16:09 EDT , Service support ,
== END ==
PROVIDERS: Family Provider Family Medicine; PCP Family Medicine; Referring Provider Physician Assistant; Visit Provider Physician Assistant
DX: R05 Cough (principal)
CPT/HCPCS: 71046

== ENCOUNTER → 2019-03-20 09:01 | Outpatient (CLI) | payer BC, SELFPAY ==
[2019-03-10 16:16] VITALS: BMI 29.6
[2019-03-20 10:01] LABS: Hematocrit 38.3 % (37-47); Hemoglobin 12.4 g/dL (12.0-15.0); Mean Corp Hgb Conc 32.4 g/dL (32-36); Mean Corpuscular Hgb 28.6 pg (27.0-32.0); Mean Corpuscular Volume 88.5 fL (81-99); Mean Platelet Vol. 9.6 fl (6.2-12.0); Platelet Count 292 K/mm3 (150-450); RBC Distribution Width SD 42.3 fl (35.1-43.9); Red Blood Count 4.33 M/mm3 (4.2-5.4); White Blood Count 6.2 K/mm3 (4.4-11.0)
[2019-03-20 10:37] LABS: Vitamin B12 796 pg/mL (211-911)
[2019-03-20 10:40] LABS: ALB/GLOB Ratio 0.8 RATIO (0.9-2.4); AST(SGOT) 8 U/L (15-37); Alanine Aminotransfer ALT/SGPT 10 U/L (13-56); Albumin, Serum 3.1 g/dL (3.2-5.0); Alkaline Phosphatase 60 U/L (45-117); Anion Gap 6 (5-15); BUN 12 mg/dL (7-18); BUN/Creat Ratio 13.2 RATIO (10-20); Calcium,Total 8.6 mg/dL (8.5-10.1); Chloride 109 mmol/L (98-107); Creatinine, Serum 0.91 mg/dL (0.55-1.02); EST Glomerular Filtration Rate 71 mL/min (>60); Est Glom Filt Rate - Afr Amer 86 mL/min (>60); Glucose 111 mg/dL (74-106); Hemoglobin A1c 5.3 % (4.2-6.3); Protein, Total 7.1 g/dL (6.4-8.2); Sodium Level 139 mmol/L (136-145)
== END ==
PROVIDERS: Family Provider Family Medicine; PCP Family Medicine; Referring Provider Family Medicine; Visit Provider Family Medicine
DX: E53.8 Deficiency of other specified B group vitamins (principal); E88.81 Metabolic syndrome and other insulin resistance; M79.7 Fibromyalgia
CPT/HCPCS: 36415; 80053; 82607; 82746; 83036; 85027

== ENCOUNTER → 2019-05-26 09:35 | Outpatient (CLI) | payer BC, SELFPAY ==
[2019-03-10 16:16] VITALS: BMI 29.6
--- NOTE | 2019-05-26 09:38 | RAD_ITS ---
STUDY: X-RAY - RIGHT FOOT CLINICAL: Female, 48 years old. Heel spur. Pain TECHNIQUE: 3 view(s) of the foot. COMPARISON: None. FINDINGS: There is an enthesophyte involving the posterior superior calcaneus at the site of insertion of the Achilles tendon. No plantar spur. Normal visualized subtalar, talonavicular, calcaneocuboid, tarsal and tarsometatarsal articulations. Normal metatarsi. There is degenerative arthrosis of the metatarsophalangeal joint of the hallux with a hallux valgus deformity. Normal tibial and fibular sesamoid bones. Normal interphalangeal joint of the great toe. Normal phalanges of the great toe. Normal second through fifth metatarsophalangeal joints. Normal interphalangeal joints and phalanges of the lesser toes. The soft tissue structures are unremarkable. There is no demonstrated fracture. RAD/Foot min 3 Views IMPRESSION: No acute fracture or dislocation. Hallux valgus. No plantar spur. Electronically Signed: Dawit Sidhu MD at 23:59 EST , Service support ,
== END ==
PROVIDERS: Family Provider Family Medicine; PCP Family Medicine; Referring Provider Family Medicine; Visit Provider Family Medicine
DX: M77.31 Calcaneal spur, right foot (principal); M20.11 Hallux valgus (acquired), right foot
CPT/HCPCS: 73630

== ENCOUNTER → 2019-08-27 15:55 | Outpatient (CLI) | payer BC, SELFPAY ==
[2019-03-10 16:16] VITALS: BMI 29.6
[2019-08-27 17:56] LABS: Absolute Lymphocyte Count 1.59 X10^3/uL (0.83-4.51); Absolute Neutrophil Count 8.1 X10^3/uL (2.0-7.7); Basophil# 0.02 X10^3/uL; Basophil% 0.2 % (0-1); Hematocrit 38.9 % (37-47); Hemoglobin 12.6 g/dL (12.0-15.0); Lymphocyte # 1.59 X10^3/ul (4.0); Lymphocyte % 15.2 % (19-41); Mean Corp Hgb Conc 32.4 g/dL (32-36); Mean Corpuscular Hgb 28.2 pg (27.0-32.0); Mean Platelet Vol. 10.1 fl (6.2-12.0); Monocyte# 0.69 X10^3/uL; Monocyte% 6.6 % (0-10); NRBC Flagged by Analyzer 0 % (0-5); Neutrophil # 8.14 X10^3/uL (2.7-7.7); Neutrophil % 77.7 % (47-70); Platelet Count 342 K/mm3 (150-450); RBC Distribution Width CV 13.5 % (11.6-14.6); RBC Distribution Width SD 43.2 fl (35.1-43.9); Red Blood Count 4.47 M/mm3 (4.2-5.4); White Blood Count 10.5 K/mm3 (4.4-11.0)
[2019-08-27 18:21] LABS: Anion Gap 6 (5-15); BUN 9 mg/dL (7-18); BUN/Creat Ratio 9.1 RATIO (10-20); Chloride 107 mmol/L (98-107); Creatinine, Serum 0.99 mg/dL (0.55-1.02); EST Glomerular Filtration Rate 64 mL/min (>60); Est Glom Filt Rate - Afr Amer 78 mL/min (>60); Glucose 122 mg/dL (74-106); Sodium Level 138 mmol/L (136-145)
== END ==
PROVIDERS: PCP Family Medicine; Referring Provider Family Medicine; Visit Provider Registered Nurse
DX: R25.1 Tremor, unspecified (principal)
CPT/HCPCS: 36415; 80048; 85025

== ENCOUNTER → 2019-08-27 16:03 | Outpatient (CLI) | payer BC, SELFPAY ==
[2019-03-10 16:16] VITALS: BMI 29.6
--- NOTE | 2019-08-27 16:13 | CT_ITS ---
STUDY: CT BRAIN WITHOUT CONTRAST REASON FOR EXAM: Female, 49 years old. TREMORS IN HAND. RADIATION DOSAGE (If Supplied By Facility): CTDIvol = ( 44.99 ) mGy, DLP = ( 745.49 ) mGycm TECHNIQUE: Transaxial CT imaging of the brain was performed without administration of intravenous contrast material. Individualized dose optimization techniques were used for this CT. COMPARISON: No relevant priors. FINDINGS: Normal soft tissue structures. Normal calvarium. Normal size ventricles and extra-axial spaces for the patient''s age. Normal white matter tracts of the cerebral hemispheres. Normal basal ganglia and thalami. Normal brainstem. Normal cerebellum. There is no intracranial hemorrhage. There are no findings of an acute ischemic infarction. Normal visualized paranasal sinuses. CT/Brain/Head without Contrast IMPRESSION: Normal unenhanced CT scan of the brain. Electronically Signed: Danae Steinberg MD at 16:38 EST , Service support ,
== END ==
PROVIDERS: PCP Family Medicine; Referring Provider Registered Nurse; Visit Provider Registered Nurse
DX: R25.1 Tremor, unspecified (principal)
CPT/HCPCS: 70450

== ENCOUNTER → 2019-08-28 08:58 | Outpatient (CLI) | payer BC, SELFPAY ==
[2019-03-10 16:16] VITALS: BMI 29.6
[2019-08-28 10:28] LABS: Ferritin 138 ng/mL (8-252)
[2019-08-28 15:27] LABS: Vitamin B12 516 pg/mL (211-911)
[2019-09-04 02:08] LABS: Rapid Plasmin Reagin (RPR) NONREACTIVE (NONREACTIVE)
== END ==
PROVIDERS: PCP Family Medicine; Referring Provider Family Medicine; Visit Provider Family Medicine
DX: G25.2 Other specified forms of tremor (principal); G25.81 Restless legs syndrome; E53.8 Deficiency of other specified B group vitamins
CPT/HCPCS: 36415; 82607; 82728; 86592

== ENCOUNTER → 2019-10-20 08:45 | Outpatient (CLI) | payer BC, SELFPAY ==
[2019-03-10 16:16] VITALS: BMI 29.6
[2019-10-20 10:25] LABS: T4 Free Direct 1.19 ng/dL (0.76-1.46); Thyroid Stim Hormone (TSH) 2.94 uIU/mL (0.358-3.74)
== END ==
PROVIDERS: PCP Family Medicine; Referring Provider Family Medicine; Visit Provider Family Medicine
DX: F31.9 Bipolar disorder, unspecified (principal)
CPT/HCPCS: 36415; 84439; 84443

== ENCOUNTER → 2020-05-18 08:41 | Outpatient (CLI) | payer BC, SELFPAY ==
[2019-03-10 16:16] VITALS: BMI 29.6
[2020-05-18 10:21] LABS: Absolute Lymphocyte Count 3.26 X10^3/uL (0.83-4.51); Basophil# 0.07 X10^3/uL; Basophil% 0.4 % (0-1); Hematocrit 43.1 % (37-47); Hemoglobin 13.7 g/dL (12.0-15.0); Lymphocyte # 3.26 X10^3/ul (4.0); Lymphocyte % 18.5 % (19-41); Mean Corp Hgb Conc 31.8 g/dL (32-36); Mean Corpuscular Hgb 27.5 pg (27.0-32.0); Mean Corpuscular Volume 86.4 fL (81-99); Mean Platelet Vol. 9.3 fl (6.2-12.0); Monocyte% 5.7 % (0-10); NRBC Flagged by Analyzer 0 % (0-5); Neutrophil % 73.7 % (47-70); Platelet Count 383 K/mm3 (150-450); RBC Distribution Width CV 12.6 % (11.6-14.6); RBC Distribution Width SD 39.8 fl (35.1-43.9); Red Blood Count 4.99 M/mm3 (4.2-5.4); White Blood Count 17.6 K/mm3 (4.4-11.0)
[2020-05-18 10:49] LABS: Vitamin B12 363 pg/mL (211-911); Vitamin D,25 Hydroxy 20.2 ng/mL
[2020-05-18 10:50] LABS: ALB/GLOB Ratio 0.9 RATIO (0.9-2.4); AST(SGOT) 7 U/L (15-37); Alanine Aminotransfer ALT/SGPT 14 U/L (13-56); Albumin, Serum 3.5 g/dL (3.2-5.0); Alkaline Phosphatase 61 U/L (45-117); Anion Gap 8 (5-15); BUN 17 mg/dL (7-18); BUN/Creat Ratio 15.5 RATIO (10-20); Calcium,Total 8.9 mg/dL (8.5-10.1); Chloride 107 mmol/L (98-107); EST Glomerular Filtration Rate 56 mL/min (>60); Est Glom Filt Rate - Afr Amer 68 mL/min (>60); Globulin 3.8 g/dL (2.2-4.2); Glucose 116 mg/dL (74-106); Potassium 3.8 mmol/L (3.5-5.1); Protein, Total 7.3 g/dL (6.4-8.2); Sodium Level 137 mmol/L (136-145); Thyroid Stim Hormone (TSH) 1.92 uIU/mL (0.358-3.74)
== END ==
PROVIDERS: PCP Family Medicine; Referring Provider Family Medicine; Visit Provider Family Medicine
DX: E03.9 Hypothyroidism, unspecified (principal); E55.9 Vitamin D deficiency, unspecified; E53.8 Deficiency of other specified B group vitamins; R42 Dizziness and giddiness
CPT/HCPCS: 36415; 80053; 82306; 82607; 82746; 84443; 85025

== ENCOUNTER → 2020-08-09 15:35 | Outpatient (CLI) | payer BC, SELFPAY ==
[2019-03-10 16:16] VITALS: BMI 29.6
--- NOTE | 2020-08-09 15:39 | MRI_ITS ---
STUDY: MRI BRAIN WITH AND WITHOUT CONTRAST REASON FOR EXAM: Female, 49 years old. dizziness, abnormal balance test TECHNIQUE: Standardized multiplanar fat and water weighted pulse sequences were obtained. IV dotarem 18ml was administered for the contrast portion of the examination. COMPARISON: CT of the brain 08/27/2019 FINDINGS: Normal size of the ventricles and extra-axial spaces for the patient''s age. Solitary white matter lesion in the left frontal lobe without mass effect or restricted diffusion Normal bilateral basal ganglia. Normal thalami. There is no extra-axial fluid accumulation. Normal flow voids within the major intracranial circulation suggesting patency by spin echo criteria. Normal venous enhancement. There is no enhancing intra-axial or extra-axial abnormality. Partial empty sella deformity. Normal, infundibular stalk, optic chiasm and hypothalamus. Normal tectal plate and pineal gland. Normal midbrain, jose angel and medulla. Normal cerebellum. Normal basal cisterns. Normal bilateral temporal bones. Normal bilateral internal auditory canals. No demonstrated orbital abnormality, within the constraints of a routine brain study. Normal visualized paranasal sinuses. Normal calvarium and skull base. Normal visualized soft tissue structures. Normal visualized upper cervical spine. MRI/Brain W/WO Contrast IMPRESSION: Nonspecific solitary white matter lesion in left frontal lobe without evidence for restricted diffusion most likely due to small vessel ischemic change although demyelination less likely but not excluded. No enhancing lesions. Specifically no evidence for acoustic or vestibular schwannoma. Electronically Signed: Ej Valencia MD at 19:39 EST , Service support ,
== END ==
PROVIDERS: PCP Family Medicine; Referring Provider Otolaryngology; Visit Provider Otolaryngology
DX: R42 Dizziness and giddiness (principal)
CPT/HCPCS: 70553; A9575

== ENCOUNTER → 2020-08-17 08:54 | Outpatient (CLI) | payer BC, SELFPAY ==
[2019-03-10 16:16] VITALS: BMI 29.6
[2020-08-17 10:30] LABS: Erythrocyte Sedimentation Rate 15 mm/hr (0-30)
[2020-08-17 10:32] LABS: Absolute Neutrophil Count 6.3 X10^3/uL (2.0-7.7); Basophil# 0.03 X10^3/uL; Basophil% 0.3 % (0-1); Hematocrit 43.6 % (37-47); Hemoglobin 14.2 g/dL (12.0-15.0); Lymphocyte % 19.8 % (19-41); Mean Corp Hgb Conc 32.6 g/dL (32-36); Mean Corpuscular Hgb 27.8 pg (27.0-32.0); Mean Corpuscular Volume 85.3 fL (81-99); Mean Platelet Vol. 9.7 fl (6.2-12.0); Monocyte# 0.51 X10^3/uL; Monocyte% 5.9 % (0-10); NRBC Flagged by Analyzer 0 % (0-5); Neutrophil % 73.5 % (47-70); Platelet Count 348 K/mm3 (150-450); RBC Distribution Width CV 12.9 % (11.6-14.6); RBC Distribution Width SD 40.2 fl (35.1-43.9); Red Blood Count 5.11 M/mm3 (4.2-5.4); White Blood Count 8.6 K/mm3 (4.4-11.0)
[2020-08-17 10:55] LABS: ALB/GLOB Ratio 0.9 RATIO (0.9-2.4); AST(SGOT) 16 U/L (15-37); Alanine Aminotransfer ALT/SGPT 19 U/L (13-56); Albumin, Serum 3.7 g/dL (3.2-5.0); Alkaline Phosphatase 59 U/L (45-117); Anion Gap 8 (5-15); BUN 11 mg/dL (7-18); BUN/Creat Ratio 9.9 RATIO (10-20); CRP 9.53 mg/L (0.0-3.0); Calcium,Total 9.5 mg/dL (8.5-10.1); Chloride 105 mmol/L (98-107); Creatinine, Serum 1.11 mg/dL (0.55-1.02); EST Glomerular Filtration Rate 56 mL/min (>60); Est Glom Filt Rate - Afr Amer 68 mL/min (>60); Glucose 104 mg/dL (74-106); Magnesium 2.2 mg/dL (1.6-2.6); Protein, Total 7.7 g/dL (6.4-8.2); Sodium Level 137 mmol/L (136-145); Thyroid Stim Hormone (TSH) 1.66 uIU/mL (0.358-3.74)
[2020-08-18 15:42] LABS: ANTINUCLEAR ANTIBODIES DIRECT Negative (Negative)
== END ==
PROVIDERS: PCP Family Medicine; Referring Provider Family Medicine; Visit Provider Family Medicine
DX: R42 Dizziness and giddiness (principal); R00.0 Tachycardia, unspecified; M79.7 Fibromyalgia
CPT/HCPCS: 36415; 80053; 83735; 84443; 85025; 85652; 86038; 86140

== ENCOUNTER → 2020-08-31 08:45 | Outpatient (CLI) | payer BC, SELFPAY ==
[2019-03-10 16:16] VITALS: BMI 29.6
[2020-08-31 10:01] LABS: Absolute Lymphocyte Count 1.87 X10^3/uL (0.83-4.51); Absolute Neutrophil Count 4.9 X10^3/uL (2.0-7.7); Basophil# 0.03 X10^3/uL; Basophil% 0.4 % (0-1); Hematocrit 41.1 % (37-47); Hemoglobin 13.2 g/dL (12.0-15.0); Lymphocyte # 1.87 X10^3/ul (4.0); Lymphocyte % 25.4 % (19-41); Mean Corp Hgb Conc 32.1 g/dL (32-36); Mean Corpuscular Hgb 27.4 pg (27.0-32.0); Mean Corpuscular Volume 85.3 fL (81-99); Mean Platelet Vol. 10.1 fl (6.2-12.0); Monocyte# 0.52 X10^3/uL; Monocyte% 7.1 % (0-10); NRBC Flagged by Analyzer 0 % (0-5); Neutrophil # 4.92 X10^3/uL (2.7-7.7); Neutrophil % 66.7 % (47-70); Platelet Count 299 K/mm3 (150-450); RBC Distribution Width CV 12.6 % (11.6-14.6); RBC Distribution Width SD 39.3 fl (35.1-43.9); Red Blood Count 4.82 M/mm3 (4.2-5.4); White Blood Count 7.4 K/mm3 (4.4-11.0)
[2020-08-31 10:34] LABS: ALB/GLOB Ratio 0.9 RATIO (0.9-2.4); AST(SGOT) 10 U/L (15-37); Alanine Aminotransfer ALT/SGPT 14 U/L (13-56); Albumin, Serum 3.5 g/dL (3.2-5.0); Alkaline Phosphatase 51 U/L (45-117); Anion Gap 9 (5-15); BUN 10 mg/dL (7-18); BUN/Creat Ratio 9.5 RATIO (10-20); Chloride 105 mmol/L (98-107); Creatinine, Serum 1.05 mg/dL (0.55-1.02); EST Glomerular Filtration Rate 59 mL/min (>60); Est Glom Filt Rate - Afr Amer 72 mL/min (>60); Free T3 4.2 pg/mL (2.18-3.98); Globulin 3.7 g/dL (2.2-4.2); Glucose 100 mg/dL (74-106); Potassium 3.7 mmol/L (3.5-5.1); Protein, Total 7.2 g/dL (6.4-8.2); Sodium Level 138 mmol/L (136-145); T4 Free Direct 1.47 ng/dL (0.76-1.46); Thyroid Stim Hormone (TSH) 2.73 uIU/mL (0.358-3.74)
== END ==
PROVIDERS: PCP Family Medicine; Referring Provider Family Medicine; Visit Provider Family Medicine
DX: E03.9 Hypothyroidism, unspecified (principal); R42 Dizziness and giddiness
CPT/HCPCS: 36415; 80053; 84439; 84443; 84481; 85025

== ENCOUNTER → 2020-10-05 08:58 | Outpatient (CLI) | payer BC, SELFPAY ==
[2019-03-10 16:16] VITALS: BMI 29.6
[2020-10-05 09:50] LABS: Internal QC Validated? YES +Cl - CLEAR BKGD; Pregnancy, Serum, hCG Quali. NEGATIVE Negative (0-9 Nonpreg)
--- NOTE | 2020-10-05 22:24 | PCM.TILTTABL ---
- Staff Staff: Megan Sylvester, - - Taylor Qureshi - Summary Pre Test Resting HR: 118 - Alert and oriented: Warm and dry Pre Test Resting BP: 132/80 - Alert and oriented: Warm and dry Minimum Test HR: 112 - Alert and oriented: Warm and dry Maximum Test HR: 137 - Alert and oriented: Warm and dry Minimum Test BP: 112/62 - Alert and oriented: Warm and dry Maximum Test BP: 126/74 - Alert and oriented: Warm and dry Reason for Test Termination: Reached Maximum Test Time Physician Tilt Table Report - Patient's Physicians Primary Care Physician: Aroldo Walton Dentistry Teacher: Bubba Parra Indications/Diagnosis: Dizziness/lightheadedness Procedure Comments: The patient presented to the tilt table laboratory and was alert and oriented and warm and dry. The baseline heart rate was 118 and a baseline blood pressure 132/80 mmHg. The cardiac rhythm was sinus rhythm. The patient was placed in the 70 degree upright tilt table position for approximately 30 minutes. The patient remained alert and oriented and warm and dry. The minimal heart rate was 112 bpm and the minimal blood pressure was 112/62 mmHg. The maximal heart rate was 137 bpm with a maximal blood pressure of 126/74 mmHg. The cardiac rhythm remained sinus rhythm. The patient complained of her hands feeling cool and feeling mildly dizzy. The patient did not lose consciousness. The patient was returned to the supine position. The patient was monitored in the supine position. She remained alert and oriented and warm and dry. She had a concluding heart rate of 115 bpm with a concluding blood pressure of 134/76 mmHg. The cardiac rhythm remained sinus rhythm. Summary: 70 degree upright tilt table study considered negative for reproducible vasovagal/neurocardiogenic mediated near syncope/syncope. This note was generated using a voice recognition system and there may be incorrect words, spelling or punctuation that were not noted when reviewing the office note prior to saving.
[2020-10-05 22:30] VITALS: BP 112/62; BP 126/74; BP 132/80
== END ==
PROVIDERS: PCP Family Medicine; Referring Provider Family Medicine; Visit Provider Family Medicine
DX: Z01.812 Encounter for preprocedural laboratory examination (principal); R00.0 Tachycardia, unspecified
CPT/HCPCS: 36415; 84703; 93660; J7040; A4216

== ENCOUNTER 2020-11-09 18:30 | Outpatient (RCR) | payer BC, SELFPAY ==
[2020-10-12 10:06] VITALS: BMI 32.3
--- NOTE | 2020-10-20 16:51 | HP.PTEVAL ---
Patient's Visit Information ROMEO TURPIN is a 50 year old F referred to Physical Therapy by Dr. Matt Corey MD with a diagnosis of Dizzyness and giddiness. Date of Evaluation: 10/20/20 Physical Therapist: Aroldo Beaulieu, DPT, OCS, CSCS - Visit Plan Frequency: 1x/Week Duration: 4-6 Weeks Plan: weekly x 4-6 for progression of adaptation and to balance ex, monitor need for habituation. VOR hori 8/10 after 30 sec today seated. - Subjective Dizzyness since June with bad spinning of the room. It lasted a couple days if she moved and better but not gone at rest. Called doctor and put on meclizine after checking her out. Checked heart which was fine. Meclizine just made her tired. Currently some days just as bad as June. Not sleeping well. Not spinning lying down. Feels best in recliner. Worst is being active. Last week to 02/01 blowdrying hair with bending. Bending makes her worse for 3 minutes. Rolling in bed not as bad. 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 Worse looking at computer. Dresses and basic ADLs herself. Hard to take care of house. No falls. - Objective Walks I, trasnfers I bed adn chair. steps reciprocal with oe rail. Cervical aROM WNL and without pain. UE AROM is normal.30 second romberg but tends to shift BW with ec after 5 seconds. - B hallpike finn. - roll test. Oculomotor: - skew eye deviation. - ocular tilt. convergence OK. no nystgmus with gaze or head shake. + L head thrust. pursuit and saccades are OK but all head movement makes her dizzy and even these two activities slightly increase her dizzyness from baseline 4-5/10. VOR 30 sec hori seated gives 8/10 dizzyness for 40 seconds. - Balance Scores Functional Gait Assessment Score: 24 % Disability: 20.0000 - Goals Goal 1:: Dizzyness 90% better overall Goal Time Frame: 4-6 Weeks Goal 2:: 30/30 FGAa to diminish fall risk Goal Time Frame: 4-6 Weeks Goal 3:: pt able to work on computer 4 hours without dizzyness Goal Time Frame: 4-6 Weeks Goal 4:: DHI 7 or less Goal Time Frame: 4-6 Weeks - Rehabilitation Potential Physical Therapy Diagnosis: Dizzyness and imbalance possible vestibular hypofunction Rehabilitation Potential: Fair - Anticipated Interventions Patient/Client Instruction: Educate patient on: Condition, Plan of Care For the Purpose of:: To increase tolerance to activity/condition/position, To improve gait and locomotor functions, To improve safety Therapeutic Exercise to Include: Balance training Comment: adaptation/habituation For the Purpose of:: To improve muscle performance and motor function, To increase tolerance to activity/condition/position, To improve gait and locomotor functions, To improve safety with gait Thank you for the opportunity to evaluate your patient. For Medicare and Medicare HMO plans, please review the plan of care and approve it. It will need to be FAXED BACK to us at [phone] for Medicare purposes. For Medicare only, by signing this I certify the plan of care. Please let me know if there are questions or concerns regarding this plan of care. Physician Signature: Date:
--- NOTE | 2020-11-09 18:55 | HP.PTDCSUM ---
It has been my pleasure to treat ROMEO TURPIN referred by Dr. Matt Corey MD, with the diagnosis of Dizzyness and giddiness for a total of 4 visit(s). Discharge Date: 11/09/20 Please see the following information for a summary of their discharge status. Subjective: FM kept her off work today. not improving and not feeling better overall with dizzyness. VOR x 2 makes dizzy 6/10 for 30 seconds. Dizzyness remains 5/10 much of day. No real pattern to bad days. % Improvement: 0 Objective/Function: 7/10 dizzy with VOR from baseline 5 for 20 seconds, similar increase with nods and turns. Not progressing quickly. FGA is same as day one. - B hallpike finn testing. Pt is functional but not seeing any real progerssion in dizzyness improvement despite compliance with adpatationa dn habituation exercises. Goal 1:: Dizzyness 90% better overall Goal Progress: Not Progressing Goal 2:: 30/30 FGAa to diminish fall risk Goal Progress: Not Progressing Goal 3:: pt able to work on computer 4 hours without dizzyness Goal Progress: Not Progressing Goal 4:: DHI 7 or less Goal Progress: Not Progressing Plan: Recommend pt contact Dr. Corey for f/u due to lack of expected progress in vestibular rehab. D/C Discharge Comments: Back to doctor for next medical step. If there are questions or concerns regarding this patient's physical therapy, please feel free to call me at [phone]. Thank you for the referral of this patient. Sincerely, Aroldo Beaulieu, DPT, OCS, CSCS
== END 2020-11-09 19:00 | disposition home or self-care (01) ==
LOC: PT 18:30
PROVIDERS: PCP Family Medicine; Referring Provider Psychiatry & Neurology Neurology; Visit Provider Psychiatry & Neurology Neurology
DX: R42 Dizziness and giddiness (principal)
CPT/HCPCS: 97110; 97162; 97530

== ENCOUNTER → 2020-11-12 | Outpatient (CLI) | payer BC, SELFPAY ==
[2020-10-12 10:06] VITALS: BMI 32.3
== END | disposition home or self-care (01) ==
PROVIDERS: PCP Family Medicine; Referring Provider Registered Nurse; Visit Provider Registered Nurse
DX: M54.5 Low back pain (principal)
CPT/HCPCS: 87086; 87088

== ENCOUNTER → 2020-11-15 14:55 | Outpatient (CLI) | payer BC, SELFPAY ==
[2020-10-12 10:06] VITALS: BMI 32.3
[2020-11-15 14:58] LABS: Mucous, Urine 0 SEEN /hpf (<or=2+); Red Blood Cells-Urine 0 SEEN /hpf (0-5); Squamous Epithelial Cells - UA 0 SEEN /hpf (5-10); White Blood Cells 0 SEEN /hpf (0-5)
[2020-11-15 18:23] LABS: Color, Urine Yellow (Yellow); Glucose, Dipstick Normal (Normal); Ketone-Dipstick Negative (Negative); Leukocyte Esterase-Dipstick Negative /ul (Negative); Nitrite-Dipstick Negative (Negative); Occult Blood-Urine Negative /ul (Negative); Protein-Dipstick Negative (Negative); Urine Bilirubin Dipstick Negative (Negative); Urine Clarity Clear (Clear); Urine Urobilinogen Normal (Normal)
[2020-11-15 18:34] LABS: Bacteria 1+ /hpf (None Seen)
== END ==
PROVIDERS: PCP Family Medicine; Visit Provider Family Medicine
DX: R39.15 Urgency of urination (principal)
CPT/HCPCS: 81001; 87086

== ENCOUNTER → 2021-01-13 12:30 | Outpatient (CLI) | payer BC, SELFPAY ==
[2020-10-12 10:06] VITALS: BMI 32.3
[2021-01-13 15:18] LABS: Absolute Lymphocyte Count 2.02 X10^3/uL (0.83-4.51); Absolute Neutrophil Count 5.8 X10^3/uL (2.0-7.7); Basophil# 0.04 X10^3/uL; Basophil% 0.5 % (0-1); Hematocrit 38.5 % (37-47); Hemoglobin 12.8 g/dL (12.0-15.0); Lymphocyte # 2.02 X10^3/ul (0.83-4.51); Lymphocyte % 23.7 % (19-41); Mean Corp Hgb Conc 33.2 g/dL (32-36); Mean Corpuscular Hgb 28.1 pg (27.0-32.0); Mean Corpuscular Volume 84.6 fL (81-99); Mean Platelet Vol. 9.6 fl (6.2-12.0); Monocyte# 0.63 X10^3/uL; Monocyte% 7.4 % (0-10); NRBC Flagged by Analyzer 0 % (0-5); Neutrophil % 68.2 % (47-70); Platelet Count 345 K/mm3 (150-450); RBC Distribution Width CV 13.4 % (11.6-14.6); RBC Distribution Width SD 41.5 fl (35.1-43.9); Red Blood Count 4.55 M/mm3 (4.2-5.4); White Blood Count 8.5 K/mm3 (4.4-11.0)
[2021-01-13 15:38] LABS: ALB/GLOB Ratio 0.9 RATIO (0.9-2.4); AST(SGOT) 12 U/L (15-37); Alanine Aminotransfer ALT/SGPT 20 U/L (13-56); Albumin, Serum 3.5 g/dL (3.2-5.0); Alkaline Phosphatase 73 U/L (45-117); Anion Gap 9 (5-15); BUN 7 mg/dL (7-18); BUN/Creat Ratio 8.1 RATIO (10-20); Chloride 95 mmol/L (98-107); Creatinine, Serum 0.86 mg/dL (0.55-1.02); EST Glomerular Filtration Rate 75 mL/min (>60); Est Glom Filt Rate - Afr Amer 90 mL/min (>60); Glucose 85 mg/dL (74-106); Magnesium 1.9 mg/dL (1.6-2.6); Potassium 3.5 mmol/L (3.5-5.1); Protein, Total 7.5 g/dL (6.4-8.2); Sodium Level 128 mmol/L (136-145)
== END ==
PROVIDERS: PCP Family Medicine; Referring Provider Family Medicine; Visit Provider Family Medicine
DX: R42 Dizziness and giddiness (principal)
CPT/HCPCS: 36415; 80053; 83735; 85025

== ENCOUNTER → 2021-01-18 12:52 | Outpatient (CLI) | payer BC, SELFPAY ==
[2020-10-12 10:06] VITALS: BMI 32.3
[2021-01-18 16:03] LABS: Osmolality, Serum 290 mOsm/KG (275-295); Osmolality, Urine 231 mOsm/KG
[2021-01-18 16:27] LABS: Microalbumin,Random Urine < 5.0 mg/L (NO RANGE EST.); Urine Sodium 40 mmol/L (Not Establ.)
== END ==
PROVIDERS: PCP Family Medicine; Referring Provider Family Medicine; Visit Provider Family Medicine
DX: E87.1 Hypo-osmolality and hyponatremia (principal)
CPT/HCPCS: 36415; 82043; 82570; 83930; 83935; 84300

== ENCOUNTER → 2021-01-24 14:58 | Outpatient (CLI) | payer BC, SELFPAY ==
[2020-10-12 10:06] VITALS: BMI 32.3
== END ==
PROVIDERS: PCP Family Medicine; Referring Provider Psychiatry & Neurology Neurology; Visit Provider Psychiatry & Neurology Neurology
DX: R25.1 Tremor, unspecified (principal)
CPT/HCPCS: 36415; 82140

== ENCOUNTER → 2021-02-08 10:34 | Outpatient (CLI) | payer BC, SELFPAY ==
[2020-10-12 10:06] VITALS: BMI 32.3
[2021-02-08 13:04] LABS: ALB/GLOB Ratio 0.9 RATIO (0.9-2.4); AST(SGOT) 13 U/L (15-37); Alanine Aminotransfer ALT/SGPT 16 U/L (13-56); Albumin, Serum 3.3 g/dL (3.2-5.0); Alkaline Phosphatase 75 U/L (45-117); Anion Gap 5 (5-15); BUN 12 mg/dL (7-18); BUN/Creat Ratio 14.9 RATIO (10-20); Calcium,Total 8.9 mg/dL (8.5-10.1); Chloride 108 mmol/L (98-107); Creatinine, Serum 0.81 mg/dL (0.55-1.02); EST Glomerular Filtration Rate 81 mL/min (>60); Est Glom Filt Rate - Afr Amer 97 mL/min (>60); Globulin 3.6 g/dL (2.2-4.2); Glucose 92 mg/dL (74-106); Potassium 4.6 mmol/L (3.5-5.1); Protein, Total 6.9 g/dL (6.4-8.2); Sodium Level 139 mmol/L (136-145); T4 Free Direct 0.94 ng/dL (0.76-1.46)
[2021-02-10 12:48] LABS: ANTINUCLEAR ANTIBODIES DIRECT Negative (Negative)
== END ==
PROVIDERS: PCP Family Medicine; Referring Provider Family Medicine; Visit Provider Family Medicine
DX: E03.9 Hypothyroidism, unspecified (principal); R68.2 Dry mouth, unspecified; R79.89 Other specified abnormal findings of blood chemistry
CPT/HCPCS: 36415; 80053; 82140; 84439; 84443; 86038

== ENCOUNTER → 2021-03-31 09:25 | Outpatient (CLI) | payer BC, SELFPAY ==
[2021-03-31 12:29] LABS: Absolute Lymphocyte Count 2.48 X10^3/uL (0.83-4.51); Absolute Neutrophil Count 6.2 X10^3/uL (2.0-7.7); Basophil# 0.03 X10^3/uL; Basophil% 0.3 % (0-1); Hematocrit 41.6 % (37-47); Hemoglobin 13.4 g/dL (12.0-15.0); Lymphocyte # 2.48 X10^3/ul (0.83-4.51); Lymphocyte % 26.6 % (19-41); Mean Corp Hgb Conc 32.2 g/dL (32-36); Mean Corpuscular Hgb 28.5 pg (27.0-32.0); Mean Corpuscular Volume 88.5 fL (81-99); Mean Platelet Vol. 9.8 fl (6.2-12.0); Monocyte# 0.59 X10^3/uL; Monocyte% 6.3 % (0-10); NRBC Flagged by Analyzer 0 % (0-5); Neutrophil # 6.19 X10^3/uL (2.7-7.7); Neutrophil % 66.4 % (47-70); Platelet Count 386 K/mm3 (150-450); RBC Distribution Width CV 13.5 % (11.6-14.6); RBC Distribution Width SD 43.7 fl (35.1-43.9); White Blood Count 9.3 K/mm3 (4.4-11.0)
[2021-03-31 12:43] LABS: ALB/GLOB Ratio 0.7 RATIO (0.9-2.4); AST(SGOT) 9 U/L (15-37); Alanine Aminotransfer ALT/SGPT 11 U/L (13-56); Albumin, Serum 3.3 g/dL (3.2-5.0); Alkaline Phosphatase 71 U/L (45-117); Anion Gap 8 (5-15); BUN 13 mg/dL (7-18); Calcium,Total 9.4 mg/dL (8.5-10.1); Chloride 103 mmol/L (98-107); EST Glomerular Filtration Rate 63 mL/min (>60); Est Glom Filt Rate - Afr Amer 76 mL/min (>60); Globulin 4.6 g/dL (2.2-4.2); Glucose 109 mg/dL (74-106); Potassium 3.9 mmol/L (3.5-5.1); Protein, Total 7.9 g/dL (6.4-8.2); Sodium Level 137 mmol/L (136-145)
[2021-03-31 13:06] LABS: Internal QC Validated? YES +Cl - CLEAR BKGD; Monotest Negative (Negative)
[2021-04-01 15:58] LABS: CMV Acute Antibody IgM < 30.0 AU/mL (0.0-29.9); CMV Antibody IgG < 0.60 U/mL (0.00-0.59); EBV Acute VCA IgM < 36.0 U/mL (0.0-35.9); EBV Early Antigen IgG <9.0 U/mL (0.0-8.9); EBV Nuclear Antigen IgG > 600.0 U/mL (0.0-17.9); EBV-VCA IgG 88.2 U/mL (0.0-17.9)
== END ==
PROVIDERS: PCP Family Medicine; Referring Provider Family Medicine; Visit Provider Family Medicine
DX: J02.9 Acute pharyngitis, unspecified (principal)
CPT/HCPCS: 36415; 80053; 85025; 86308; 86644; 86645; 86663; 86664; 86665; 87070; 87633

== ENCOUNTER 2021-05-09 08:30 | Outpatient (RCR) | payer BC, SELFPAY ==
--- NOTE | 2021-05-09 09:00 | BH.COMM ---
Communication Note - Communication with Client Communication Note: Case discussed with Dr. Brown with plan to admit to IOP level of care with initial dx of Bipolar, Depressed F31.4
--- NOTE | 2021-05-09 09:05 | BH.SGPN.GN ---
Behaviors/Verbalizations/Mental Status: [] Eye contact is good. Motor activity is appropriate. Appearance is casual. Speech is Appropriate. Mood is euthymic. Affect is full. Thoughts are linear and logical. No evidence of psychosis. Reviewed daily check in sheet and pt reports 1/5 for suicidal thoughts and 1/5 for intent. Pt completed [place] Risk Assessment this AM. Client Response/Progress/Benefit: [] Pt participated when prompted. Attentive during discussion on improving sleep. Daily symptom tracker notes 3/5 for depression and 4/5 for anxiety. This was patient's first day in IOP and she shared that she entered IOP to learn better ways to coping with her depression. Discussed how her depression has impacted her daily functioning. She also shared her struggles with anxiety and recent stressors. Group was supportive, welcomed her to IOP, and gave some adivce for her first week. Limited progress noted as this was pt's first day in IOP. Will continue in IOP to maintain safety, increase healthy coping, and improve functioning. Narrative Note: []
--- NOTE | 2021-05-09 09:41 | BH.COMM ---
Communication Note - Communication with Client Communication Note: Met with pt to complete initial paperwork. No significant changes since pre-admission screening. Completed [place] Suicide Screening. Pt presents as moderate risk. Pt indicates passive suicidal ideation occurring ?a few times a week? with a vague plan of overdose or MVA. No hx of gestures, preparatory behavior, or prior attempts. Pt denies any active suicidal ideations, plan, or intent as of 05/09/21. Future oriented. Reports her daughters and not wanting ?to make things worse? as her biggest protective factors. No access to weapons. Future oriented and reports ability to maintain safety. Does not present as imminent risk due to no active SI, plan, or intent.
--- NOTE | 2021-05-09 09:58 | BH.SGPN.GN ---
Behaviors/Verbalizations/Mental Status: []Client alert and oriented, casually dressed and groomed. Eye contact fair. Motor activity appropriate. Speech within normal limits. Affect constricted, mood anxious. Thoughts linear, logical, no signs of hallucinations or delusions. Client Response/Progress/Benefit: []Client responded well to session AEB client contributing to discussion and listening attentively to others. Client connected to discussion reviewing the importance of self-care, stating that she struggles to recognize self-care as not being selfish. This is the client's first day of IOP treatment, client appeared anxious with a constricted affect, sharing very briefly. Client contributed to small group discussion regarding debunking the myths of self-care. Client?s group debunked the myths that self-care is selfish, has to be earned, is too expensive, and is not always pampering. Client?s group discussed the importance of self-care to functioning, needing to earn self-care as a vicious cycle, getting creative with inexpensive options, and making self a priority as self care. Appeared to benefit from discussion of the importance of self-care and potential self-care options. Will continue IOP treatment to develop healthy coping skills, improve functioning, and increase use of self-care. Narrative Note: []
--- NOTE | 2021-05-09 11:01 | BH.SGPN.GN ---
Behaviors/Verbalizations/Mental Status: []Client alert and oriented, casually dressed and groomed. Eye contact fair to good. Motor activity appropriate. Speech within normal limits. Affect constricted, mood depressed and anxious. Thoughts linear, logical, no signs of hallucinations or delusions. Client Response/Progress/Benefit: []Client first day in IOP tx. Remained mostly engaged AEB taking notes and actively listening during discussion. Attentive throughout group discussion on the various areas of self-care, benefits, and types of self-care activities for each area. Client completed worksheet which identified current self-care practices and what self-care activities client wants to start using. Client noted she is struggling in several areas of self-care. Indicated that she would like to begin improving on emotional and social self-care. Identified that she could begin doing so by beginning to challenge herself to set boundaries and regularly practicing saying ?no? to things so as to prevent feeling overwhelmed. Appeared to benefit from completing the self-care evaluation and gaining insights into current self-care practices, as well as identifying areas in which she would like to improve upon. Will continue IOP tx to continue to improve depression management, improve insight and use of calming skills, as well as maintain safety. Narrative Note: []
--- NOTE | 2021-05-11 09:17 | BH.COMM ---
Communication Note - Communication with Client Communication Note: Pt called in a cancelled IOP for today due to Fibromyalgia. She was scheduled to see psychiatrist this AM and this will have to be rescheduled till next week.
--- NOTE | 2021-05-16 09:00 | BH.SGPN.GN ---
Behaviors/Verbalizations/Mental Status: []Eye contact is good. Motor activity is appropriate. Appearance is casual. Speech is Appropriate. Mood is anxious. Affect is congruent. Thoughts are linear and logical. No evidence of psychosis. Reviewed daily check in sheet and no reports of suicidal ideations or intent. Client Response/Progress/Benefit: []Pt responded well to session AEB pt sharing thoughts and feelings, listening attentively to others and providing feedback to others. Pt stated mental health positive as accomplishing weekend goal of going through big pile of paperwork and paying bills. Pt stated she felt relieved to get that goal accomplished. Reported she is frustrated that she can't do her tasks little by little so the tasks/chores don't pile up and become overwhelming. With assistance from therapist she identified mental health positive as coming to IOP today. Pt reported she had the desire to stay home today because it would'be been easier and comfortable. Pt stated she reminded herself she needs help and staying at home will only make things worse. Pt to increase healthy coping, improve daily functioning and prevent decompensation. Narrative Note: []
--- NOTE | 2021-05-16 10:05 | BH.SGPN.GN ---
Behaviors/Verbalizations/Mental Status: []Client alert and oriented, casually dressed and groomed. Eye contact fair. Motor activity appropriate. Speech within normal limits. Affect constricted, mood anxious. Thoughts linear, logical, no signs of hallucinations or delusions. Client Response/Progress/Benefit: []Client responded well to session AEB listening attentively to others. Client nodded throughout group discussion of anger as a secondary emotion. Client remained a passive participant throughout discussion and declined to process anger activity with group. Client appeared to benefit from increased awareness of anger triggers and warning signs. Will continue IOP treatment to prevent decompensation, and increase anxiety management skills. Narrative Note: []
--- NOTE | 2021-05-16 14:16 | BH.MDN ---
Multi-Disciplinary Note - Note 45-min Individual Time Started:: 11:00 Date: 05/16/21 Purpose of session/treatment goals addressed:: To gather information on client's current stressors, symptoms, triggers, and tx goals. Another goal was to build rapport and provide emotional support. Eye Contact:: Good Motor Activity:: Restless Appearance:: Neat Speech:: Appropriate Mood:: Anxious, Dysthymic Affect:: Congruent Thoughts:: Linear, Logical, No evidence of hallucinations/delusions noted Staff Interventions:: thought challenging, psychoeducation on: - depression, anxiety, and maintenance cycles, rapport building, strengths perspective, treatment planning, taught coping skills Client Response:: Client responded well to session, open to meeting with therapist. Client shared the past year has been very challenging for client and her family. Client has had to stop working because of her worsening mental health symptoms. Client shared because she was not working, she and her had to sell their house due to loss of income. Client stated she has also had medical issues and her mother was diagnosed with cancer. Client reports she is trying to get approved for disability right now as client is not able to work without having panic attacks. Client identified her treatment goals which included being able to handle anxiety, learn how to manage depression, and not want to hurt myself. Client reports her and anxiety and depression are equally debilitating right now. Receptive to learning about maintenance cycles and the CBT triangle. Client connected with the maintenance cycles, specifically the isolation and avoidance that comes with depression and anxiety. Discussed behavioral and cognitive signs of anxiety and client receptive to practicing calming skills. Client practiced deep breathing, progressive muscle relaxation, and the 5-senses. Client selected the 5-senses to practice for homework. Risks/Concerns:: Client admits to having thoughts of and some passive SI, but denies she would act of those thoughts. Future oriented. Denies active SI. Denies homicidal ideations. Progress Toward Goals/Plan:: Client's second time at [facility] having missed last week due to health issues. Client reports numerous life events and stressors that have occurred within the past year and contributed to her worsening mental health. Client currently endorses low energy, lack of motivation, depressed mood, worry, poor sleep, thoughts of , poor memory, and anxiety. Client has not been able to work because of her mental health symptoms and is trying to get approved for disability. Client to continue IOP tx as the structure, support, and education will hopefully prevent worsening of symptoms and hospitalization. Time Stopped:: 11:45
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
--- NOTE | 2021-05-16 14:17 | BH.MTP ---
[facility] - Patient Information Program Physician:: Dr. Amber Lopez Primary Therapist:: Marilyn Olvera - Psychiatric Diagnoses Psychiatric Diagnoses:: Bipolar 1, most recent episode depression, severe without psychosis; Generalized anxiety disorder Diagnosis Code(s):: F 31.9 - Estimated LOS Estimated LOS (in weeks):: 6 Problem/Goal #1 - Problem/Goal #1 Stated Goal:: Client will reduce depressive symptoms, anhedonia, suicidal ideations, and negative thinking. Description of Barriers: Client has physical health issues that can exacerbate client's mental health symptoms. Client has experienced many life stressors within the last year including moving, family illness, financial stress, and leaving a job. Functional Impact: Client is a 50-year-old female with a history of bipolar disorder and ANEUDY. Client was referred to [facility] by her outpatient psychiatrist, Dr. Llamas, due to decompensation over the past several months. Client reports medical and mental health symptoms have been interfering with daily functioning which led to taking FMLA in June of 2020 and client ran out of FMLA in October 2020. Client currently not working because client is still unable to function at her baseline. Client currently endorses poor sleep (1-3 hours a night), increased appetite, low energy, lack of motivation, hopelessness, isolation, avoidance, and anhedonia. Client also reports panic attacks about 2-3 times a week and excessive worry about the well-being of her family. At admission, client reports fleeting suicidal ideations, but denies any plan or intent. Client experiences physical pain associated with fibromyalgia which exacerbates her depression. Client's symptoms are significantly impacting her social, occupational, and familial functioning. Goal Relevant Strengths/Supports: Client is established with outpatient mental health services. Client is intelligent, hard-working, and receptive to help. - Objectives Objective #1 Stated Objective: Client will learn and utilize 2-3 healthy coping strategies to better manage depressive symptoms as shown by reduced DSM-5 scores. Interventions: Through group and individual sessions, therapist will help client identify triggers and warning signs of depression. Therapist will teach client various coping skills to manage her symptoms and give client tangible resources to use to regulate emotions. Therapist will use cognitive restructuring techniques and help client gain awareness of negative thoughts that reinforce depressive cycles and help client reframe these thoughts. Discharge Criteria: Client will have met this goal when she can report learning and using at least 2 coping skills to manage depressive symptoms and show a reduction in DSM-5 symptoms. Target Date: 06/20/21 Review Date: 06/06/21 Status: open Objective #2 Stated Objective: Client will identify at least 2-3 negative self-talk messages used to reinforce guilt and hopelessness and replace thoughts with positive, realistic messages. Interventions: Therapist will help client identify distorted, negative thoughts about self and replace with more realistic, affirmative messages. Therapist will use CBT to help client increase insight to the connection between thoughts, emotions, and behaviors. Therapist will encourage client to practice thought challenging. Discharge Criteria: Client will have achieved this goal when can verbalize at least 2 negative self-talk messages and effectively replace those thoughts with affirmative messages. Target Date: 06/20/21 Review Date: 06/06/21 Status: open Problem/Goal #2 - Problem/Goal #2 Stated Goal:: Client will reduce anxiety symptoms and avoidance while increasing ability to function on daily basis. Description of Barriers: Client has physical health issues that can exacerbate client's mental health symptoms. Client has experienced many life stressors within the last year including moving, family illness, financial stress, and leaving a job. Functional Impact: Client is a 50-year-old female with a history of bipolar disorder and ANEUDY. Client was referred to [facility] by her outpatient psychiatrist, Dr. Llamas, due to decompensation over the past several months. Client reports medical and mental health symptoms have been interfering with daily functioning which led to taking FMLA in June of 2020 and client ran out of FMLA in October 2020. Client currently not working because client is still unable to function at her baseline. Client currently endorses poor sleep (1-3 hours a night), increased appetite, low energy, lack of motivation, hopelessness, isolation, avoidance, and anhedonia. Client also reports panic attacks about 2-3 times a week and excessive worry about the well-being of her family. At admission, client reports fleeting suicidal ideations, but denies any plan or intent. Client experiences physical pain associated with fibromyalgia which exacerbates her depression. Client's symptoms are significantly impacting her social, occupational, and familial functioning. Goal Relevant Strengths/Supports: Client is established with outpatient mental health services. Client is intelligent, hard-working, and receptive to help. - Objectives Objective #1 Stated Objective: Client will identify 2-3 anxiety triggers and 2 coping skills to use when feeling anxious to manage anxiety as shown by decreasing her DSM-5 scores for anxiety. Interventions: Therapist will provide education on anxiety, avoidance behaviors, and maintenance cycles. Therapist will help client explore personal symptoms and warning signs of anxiety. Therapist will teach client coping skills to improve emotional regulation, mindfulness, and distress tolerance to help client cope with anxiety in the moment. Discharge Criteria: Client will have accomplished this goal when she can identify at least 2 triggers and report using 2 coping skills to manage anxiety. Additionally, client will have accomplished this goal when her DSM-5 scores show a reduction for anxiety. Target Date: 06/20/21 Review Date: 06/06/21 Status: open Objective #2 Stated Objective: Client will identify 2-3 cognitive distortions that lead to rumination and learn 2-3 ways to manage these thoughts to better manage anxiety Interventions: Therapist will provide education on the most common cognitive distortions and teach client the connection between thoughts, emotions, and feelings. Therapist will assist client in identifying, challenging, and replacing dysfunctional thoughts with positive, more realistic thoughts. Therapist will use CBT and DBT techniques to help client gain awareness of thinking errors and learn how to more effectively handle negative thoughts. Therapist will also use self-compassion to help client set more realistic expectations for herself. Discharge Criteria: Client will have accomplished this goal when can identify at least 2 cognitive distortions and at least 2 coping skills to manage negative thoughts. Target Date: 06/20/21 Review Date: 06/06/21 Status: open
--- NOTE | 2021-05-17 09:05 | BH.SGPN.GN ---
Behaviors/Verbalizations/Mental Status: [] Eye contact is good. Motor activity is appropriate. Appearance is casual. Speech is Appropriate. Mood is anxious. Affect is congruent. Thoughts are linear and logical. No evidence of psychosis. Reviewed daily check in sheet and pt reports 1/5 for suicidal thoughts and intent. This is baseline since entering the program. Client Response/Progress/Benefit: [] Pt was an active participant in group discussion. Attentive. Provided appropriate feedback. Daily symptom tracker notes 4/5 for anxiety and 3/5 for depression. Emotion for today is apprehensive. Mental health wins include breaking tasks into smaller increments yesterday which helped her complete them. In the past she would have have unrealistic tasks and goals and ultimately fail to complete anything impacting her depression. Also was able to make dinner for her self and kids yesterday. She learned 3 new coping skills for her anxiety which she practiced and found helpful yesterday and today. She talked at length regarding anxiety about upcoming holiday and visiting with her parents. Benefited from feedback from peers on how they managed similar anxieties. Progress noted. Will continue in IOP to maintain safety, increase healthy coping, and stablize mood. Narrative Note: []
--- NOTE | 2021-05-17 10:15 | BH.SGPN.GN ---
Behaviors/Verbalizations/Mental Status: []Eye contact is good. Motor activity is restless. Appearance is casual. Speech is Appropriate. Mood is anxious and depressed. Affect is constricted. Thoughts are linear and logical. No evidence of psychosis. Client Response/Progress/Benefit: []Pt was an engaged participant in group discussions. Attentive and provided insights during psychoeducation on benefits and disadvantages of anxiety and review of different types of anxiety disorders. Completed worksheet on identifying own physical symptoms or signs of anxiety which pt reported numerous however identified most frequent as: feeling tense, stomach issues, and feeling lightheaded. Benefited from increased awareness of physiological signs of anxiety as well as differences between 'normal' anxiety and anxiety disorder. Will continue IOP tx to reduce avoidance and isolation, improve functioning, and gain healthy coping skills. Narrative Note: []
--- NOTE | 2021-05-17 11:15 | BH.SGPN.GN ---
Behaviors/Verbalizations/Mental Status: []Client alert and oriented, casually dressed and groomed. Eye contact good. Motor activity appropriate. Speech within normal limits. Affect congruent, mood anxious. Thoughts linear, logical, no signs of hallucinations or delusions. Client Response/Progress/Benefit: []Client was an active participant in group discussion, able to provide input to discussion when prompted. Reviewed safety behaviors she engages in that reinforce anxiety. Some of client?s safety behaviors include: avoiding and struggling with distortions which result in ?all or nothing? thinking. Attentive during psychoeducation on mindfulness coping skills and their impact on mental health wellness. The group worked together to brainstorm anxiety reduction strategies. Client selected trying to utilize various counting strategies as the mindfulness skill she will practice over the next three days. Client seemed to benefit from increased repertoire of anxiety reduction skills. Client will continue IOP tx to continue to reduce intensity of anxiety symptoms, improve overall functioning and reduce avoidance, as well as prevent decompensation. Narrative Note: []
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
[2021-05-18 10:42] VITALS: BP 135/85; PULSE 100
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
--- NOTE | 2021-05-18 12:55 | BH.DR.ITP ---
Initial Treatment Plan Patient Information Visit Information: ADMISSION DATE: EXPECTED LOS: 4-6 weeks Problems/Symptoms Problem #1:: Depression Symptom:: Sadness, hopelessness, worthlessness, guilt, passive thoughts of , decreased concentration, low energy, anhedonia, suicidal ideation, thoughts of , plan for suicide, Problem #2:: Anxiety Symptom:: Worry, rumination, panic attacks, avoidance
== END 2021-05-24 23:59 ==
LOC: BHIOP 08:30
PROVIDERS: PCP Family Medicine; Visit Provider Psychiatry & Neurology Psychiatry
DX: F31.4 Bipolar disorder, current episode depressed, severe, without psychotic features (principal); F41.1 Generalized anxiety disorder; G89.29 Other chronic pain; G43.909 Migraine, unspecified, not intractable, without status migrainosus; R42 Dizziness and giddiness; Z79.899 Other long term (current) drug therapy; R45.851 Suicidal ideations; E03.9 Hypothyroidism, unspecified; K21.9 Gastro-esophageal reflux disease without esophagitis; M06.9 Rheumatoid arthritis, unspecified; M79.7 Fibromyalgia
CPT/HCPCS: S9480; 90834; 90853

== ENCOUNTER 2021-05-25 09:00 | Outpatient (RCR) | payer BC, SELFPAY ==
[2021-05-25 00:40] VITALS: BP 135/85; PULSE 100
--- NOTE | 2021-05-25 09:00 | BH.SGPN.GN ---
Behaviors/Verbalizations/Mental Status: [] Eye contact is good. Motor activity is appropriate. Appearance is casual. Speech is Appropriate. Mood is depressed. Affect is flat. Thoughts are linear and logical. No evidence of psychosis. Reviewed daily check in sheet and no reports of suicidal ideations or intent. Client Response/Progress/Benefit: [] Pt did not participate in group discussion however she did answer the fun group question of the day. Attentive. Told this therapist prior to group starting I don't want to share today. No progress noted. Limited benefit aside from support from peers. Will continue in IOP to maintain safety, prevent decompensation, and improve functioning. Narrative Note: []
--- NOTE | 2021-05-25 10:12 | BH.SGPN.GN ---
Behaviors/Verbalizations/Mental Status: []Eye contact is good. Motor activity is appropriate. Appearance is casual and grooming attended to. Speech is Appropriate, soft. Mood is anxious. Affect is constricted. Thoughts are linear and logical. No evidence of psychosis Client Response/Progress/Benefit: []Pt was an engaged participant in group discussion, providing input when prompted and was attentive during psychoeducation. Participated in short activity about automatic thoughts and agreed with fellow participants that current mood and past experiences can impact automatic thoughts. Group was primarily educational; therapist introduced and gave examples of the most common cognitive distortions. Benefited from education and increased awareness of cognitive distortions and the role that they play our behaviors and emotions. Pt reported connecting with distortions such as labeling, should statements, personalization, jumping to conclusions, and all or nothing thinking. Nodded in agreement as others provided examples and discussed the negative impacts these distortions can have on mental health. Will continue IOP tx to challenge distortions that reinforce depression and anxiety while increasing ability to function, and reducing avoidance behaviors. Narrative Note: []
--- NOTE | 2021-05-25 14:47 | BH.MDN_ITS ---
Multi-Disciplinary Note - Note 45-min Individual Time Started:: 11:20 Date: 05/25/21 Purpose of session/treatment goals addressed:: To work on goal #1 of client's tx plan. Eye Contact:: Fair Motor Activity:: Restless - tapping foot and shaking leg Speech:: Appropriate Mood:: Anxious, Dysthymic Affect:: Constricted Thoughts:: Linear, Logical, No evidence of hallucinations/delusions noted Staff Interventions:: thought challenging, psychoeducation on: - depressive cycles, CBT techniques, strengths perspective, goal setting, taught coping skills Client Response:: Client responded well to session, receptive to meeting with therapist. Client shared she continues to struggle with lack of motivation, inappropriate guilt, lack of energy, and mood instability. Client was in cognitive distortion group today and reports that she connects with the all or nothing thinking and overgeneralizing. Client had to leave group before learning all of the distortions and reviewed these with therapist. Client learned how distorted thought patterns reinforce her depression and anxiety. Client stated she tells herself that if she does not accomplish all she wants to, she tells herself she did nothing. Client reported this happened over the weekend and has impacted her mood all week. Client shared she also tends to disqualify her positives and personalize others emotions. Client receptive to emotional support and gentle thought challenging. Discussed ways client can start to combat these distortions and client was receptive to learning behavioral activation as one way to break depressive maintenance cycles. Client learned the acronym A.C.E.S (accomplish, closeness, enjoyment, and self-care) and used this to set small daily goals. Client also encouraged to begin writing down daily accomplishments to practice identifying positives and challenging distortions. Risks/Concerns:: Client denies any active suicidal ideations, plan, or intent as of 05/25/21. Admits to passive, fleeting SI, but denies she would at on these thoughts. Future oriented and reports ability to maintain safety. Progress Toward Goals/Plan:: Client demonstrating progress with her increased attendance and engagement in individual sessions. However, client's problems and stressors are ongoing. Client continues to report a depressed mood, anhedonia, lack of energy, lack of motivation, anxiety, ruminations, increased appetite, po or sleep, and dizziness. Client also has medical issues that continue to impact her functioning. Client is receptive to goal setting in session. Will continue IOP tx to prevent decompensation, reduce distorted thought patterns, and increase motivation. Time Stopped:: 12:00
--- NOTE | 2021-05-27 09:00 | BH.SGPN.GN ---
Behaviors/Verbalizations/Mental Status: [] Eye contact is good. Motor activity is appropriate. Appearance is casual. Speech is Appropriate. Mood is depressed. Affect is flat. Thoughts are linear and logical. No evidence of psychosis. Reviewed daily check in sheet and no reports of suicidal ideations or intent. Client Response/Progress/Benefit: [] Pt participated when prompted. Attentive. States I'm not doing well physically or mentally. Her mental health win was getting here today. Admits that she had low motivation and energy and wanted to simply stay at home. Identified some physical and medical issues which are exacerbating her mental health. She was able to identify several cognitive distortions that she has throughout the day the most frequent being mind-reading. Increased awareness of the impact these have on her thoughts, emotions, and behaviors. She views this as a win. Progress reported by pt in certain areas. Benefited from group support, encouragement, and feedback from peers. Will continue in IOP to prevent decompensation, increase healthy coping skills, and improve functioning. Narrative Note: []
--- NOTE | 2021-05-27 10:08 | BH.SGPN.GN ---
Behaviors/Verbalizations/Mental Status: [] Eye contact is good. Motor activity is appropriate. Appearance is casual. Speech is Appropriate. Mood is anxious, euthymic. Affect is congruent. Thoughts are linear and logical. No evidence of psychosis. Client Response/Progress/Benefit: [] Pt was an active participant in group discussion and activity. Attentive during psychoeducation on coping skills, taking notes, and nodding in agreement as fellow participants shared. Pt along with peers worked together to identify unhealthy coping skills such as; avoidance, overbooking yourself, substances, isolation, distracting with other activities. Group was able to identify why people use unhealthy coping skills such as; easy, comfortable, work in the short-term, habit, or it?s what they were taught/learned from others. Pt noted connecting with avoidance as a form of unhealthy coping she has struggled with. Pt was able to make connection between the activity (tower building) and the importance of having a strong base/foundation of both internal and external coping skills, sharing that without a strong base it?s difficult to be successful. Benefited from increased understanding of unhealthy coping skills and developing healthy internal and external coping skills to manage mental health sx. Pt will continue in IOP to prevent decompensation, increase health coping skills and reduce avoidance, as well as continue to promote healthy change behaviors. Narrative Note: []
--- NOTE | 2021-05-27 11:05 | BH.SGPN.GN ---
Behaviors/Verbalizations/Mental Status: []Client alert and oriented, neatly dressed and groomed. Eye contact good. Motor activity appropriate. Speech within normal limits. Affect constricted, mood dysthymic. Thoughts linear, logical, no signs of hallucinations or delusions. Client Response/Progress/Benefit: []Client responded well to session, taking note and contributing at times. Group discussed the different categories of coping skills which included distraction, emotional release, grounding, self-love, and thought challenging. Client's coping skill menu included: DDD, music, getting outside in nature, scheduling 10 minutes a day to identify wins, and writing out negative thoughts to see if they are rational or irrational. Client has been concerned about her increased appetite due to a medication, so she hopes DDD will help with this. Appeared to benefit from increasing repertoire of healthy coping skills. Will continue tx to reduce distorted thought patterns, improve daily functioning, and increase mood stability. Narrative Note: []
--- NOTE | 2021-05-30 09:04 | BH.SGPN.GN ---
Behaviors/Verbalizations/Mental Status: []Client alert and oriented, neatly dressed and groomed. Eye contact good. Motor activity appropriate. Speech within normal limits. Affect congruent, mood anxious. Thoughts linear, logical, no signs of hallucinations or delusions. Reviewed client?s symptom tracker, no risk for suicidal ideation, plan, or intent as of 05/30/21 Client Response/Progress/Benefit: []Client responded well to session, attentive as others shared and willing to process with group. Client reports feeling anxious about sharing in the group setting as she often struggles with knowing what to share. Expressed being ?overwhelmed? today as she had been struggling physically over the weekend and was unable to accomplish several of the tasks she would typically do over the weekend. Noted plans to break things down and create a ?to-do list? so her stress does not feel too overwhelming. Additionally discussed having an argument with her over ?a Edilberto list? and is concerned that there may be additional underlying stressors contributing to the argument. Shared plans to sit down and discuss this further with him to prevent additional unnecessary arguments. Client appears to be making progress with insight and ability to identify healthy skills to improve stress management. Appeared to benefit from group support. Will continue IOP tx to continue to promote self-care, increase consistent use of healthy anxiety management skills, as well as continue to improve mood stability. Narrative Note: []
--- NOTE | 2021-05-30 11:29 | BH.COMM ---
Communication Note - Communication with Client Communication Note: Pt had to leave early today due to feeling dizzy. Pt reports feeling safe to drive self home as pt lives close. Pt's daily symptom tracker did not show any imminent risk to self or others. Reports plan to attend tomorrow.
--- NOTE | 2021-05-31 09:05 | BH.SGPN.GN ---
Behaviors/Verbalizations/Mental Status: []Client alert and oriented, neatly dressed and groomed. Eye contact good. Motor activity restless. Speech within normal limits. Affect congruent, mood euthymic and anxious. Thoughts linear, logical, no signs of hallucinations or delusions. Reviewed client?s symptom tracker and client's scores were within her baseline, no risk for suicidal ideation, plan, or intent as of 05/31/21 Client Response/Progress/Benefit: []Client responded well to session, engaged and providing support. Client reports feeling positive this morning despite not getting much sleep last night. Client states belief this is due to utilizing healthy coping skills and challenging her negative thought patterns since being in IOP. Client shared she could not sleep last night because she was anxious about her upcoming appointment in [place] tomorrow. Client shared instead of laying in bed and ruminating, client did productive things instead and this was helpful. The group gave client ideas to reduce anxiety tomorrow while driving to [place]. Client reported being appreciative and was interested in trying these ideas. Progress noted in client's self-report of improved mood and more positive perspective. Will continue IOP tx to promote long-term mood stability, increase self-confidence, and improve daily functioning. Narrative Note: []
--- NOTE | 2021-05-31 10:15 | BH.SGPN.GN ---
Behaviors/Verbalizations/Mental Status: []Client alert and oriented, casually dressed, hygiene appeared to be tended to. Eye contact fair. Motor activity appropriate. Speech within normal limits. Affect constricted, mood anxious. Thoughts linear, logical, no signs of hallucinations or delusions. Client Response/Progress/Benefit: []Client passive participant during group session AEB providing no input throughout discussion, however did appear to listen attentively to peers and engaged in group activity. The group identified benefits of failure as: learning new skills, gaining perspective, and helping individuals learn to succeed. Client appeared to connected with others on importance of changing perspective on failure. Client appeared to benefit from gaining awareness of the impact fear of failure can have on one?s mental health and wellbeing. Will continue IOP to increase healthy coping, challenge distorted thoughts and prevent decompensation.
--- NOTE | 2021-05-31 13:49 | BH.MDN_ITS ---
Multi-Disciplinary Note - Note 30-min Individual Time Started:: 11:40 Date: 05/31/21 Purpose of session/treatment goals addressed:: To process current stressors and anxiety triggers while reviewing healthy coping skills. Another goal was to discuss sleep hygiene strategies. Eye Contact:: Good Motor Activity:: Restless Appearance:: Neat Speech:: Appropriate Mood:: Euthymic, Anxious Affect:: Congruent Thoughts:: Linear, Logical, Other - struggling with memory at times per client report., No evidence of hallucinations/delusions noted Staff Interventions:: thought challenging, psychoeducation on: - sleep hygiene, mindfulness skills, strengths perspective, other - helped client prepare for appointment tomorrow. Client Response:: Client responded well to session, open to meeting with therapist. Client shared earlier today that she was feeling more positive. Client contributes this change in perspective to hearing other people's stories in IOP. Client shared this has helped client look at the positives in her life more often. Client reports she has been working on her goals from previous session including making her bed every day and accomplishing other tasks around the house. Client has not got back into her old hobbies yet, but she is more motivated to do so than she had been. Client's biggest stressor right now is her appointment tomorrow at [facility]. Client shared she does not know where to go or what to expect. Processed client's worries and problem solved solutions. Client's will be joining client and in session therapist printed a map for client. Also discussed internal coping skills client could use to reduce anxiety and sleep hygiene strategies to help client improve sleep. Risks/Concerns:: Client denies any active suicidal ideations, plan, or intent as of 05/31/21. Client continues to report a 1/5 (5 being severe) for thoughts of suicide, but client reports this is her baseline. Denies any HI. Future oriented and reports finding benefit in IOP. Progress Toward Goals/Plan:: Client is making progress towards her treatment goals AEB her self-report of a more positive outlook since starting IOP and increased engagement. Client reports her sleep continues to be poor and last night she did not sleep much due to anxiety and ruminations. Client?s functioning at home is improving, but not desired yet. Client continues to str uggle with anhedonia, poor memory, dizziness, and difficulty concentrating. Client has an appointment for neuropsychological testing tomorrow at [facility]. Will continue IOP tx to promote mood stability, gain healthy coping skills, and improve overall functioning. Time Stopped:: 12:15
--- NOTE | 2021-06-02 09:07 | BH.SGPN.GN ---
Behaviors/Verbalizations/Mental Status: []Eye contact is good. Motor activity is appropriate. Appearance is casual. Speech is Appropriate. Mood is euthymic and hopeful. Affect is congruent. Thoughts are linear and logical. No evidence of psychosis. Reviewed daily check in sheet and no reports of suicidal ideations or intent. Client Response/Progress/Benefit: []Pt responded well to session AEB pt listening attentively to others and sharing thoughts and feelings. Pt stated she is feeling optimistic today because had some neruropsych tests done and is hoping to get answers to some of the issues she is experiencing. Pt stated she was able to manage anxiety about going to [facility] for the tests by using breathing skills. Pt identified mental health positive as accomplishing goal of getting outside by spending time cleaning up yard and putting out birdseed. Pt stated current stressor is her daughter starting to have some health issues which pt reported has increased her own anxiety. Progress noted with pt reporting improved mood and use of healthy skills to manage anxiety. Pt to continue IOP to continue use of skills, challenge distorted thoughts and prevent decompensation. Narrative Note: []
--- NOTE | 2021-06-02 10:18 | BH.SGPN.GN ---
Behaviors/Verbalizations/Mental Status: []Client alert and oriented, casually dressed and groomed. Eye contact good. Motor activity appropriate. Speech within normal limits. Affect congruent, mood anxious. Thoughts linear, logical, no signs of hallucinations or delusions.[] Client Response/Progress/Benefit: []Pt was an attentive participant AEB taking notes and contributing throughout which is progress for pt. Attentive during psychoeducation on Conflict Styles ( Avoidant, Competing, Accommodating, and Collaborating). Participated in interactive group discussion on benefits of conflict.? Pt noted that conflict can actually help in improving communication in relationships when addressed in healthy ways. Pt along with peers identified several reasons conflict is often avoided which included; anxiety, fear of other?s reaction, not wanting to face additional conflict, and negative past experiences. Pt reported connecting most with the cooperative conflict resolution style. Discussed that this has at times resulted in not being willing to advocate full for herself due to fear. Benefited from increased awareness on conflict styles. Will continue in IOP to promote application of self-care, increase the use of healthy coping skills and anxiety management, and continue to improve ability to function. Narrative Note: []
--- NOTE | 2021-06-02 11:19 | BH.SGPN.GN ---
Behaviors/Verbalizations/Mental Status: []Client alert and oriented, casually dressed and groomed. Eye contact good. Motor activity appropriate. Speech within normal limits. Affect congruent, mood anxious and euthymic. Thoughts linear, logical, no signs of hallucinations or delusions. Client Response/Progress/Benefit: []Client engaged in session AEB actively participating in group activity and providing input during reflection exercise. Client did well to review her own approach to conflict in the activity versus how she approaches conflict outside group environment. Client reports personal barriers to managing conflict are shutting down, making assumptions or mind reading, and ?what if? thoughts. Client wants to work on better managing conflict by taking more of a competing approach to better advocate for her own needs. Shared she can do so by challenging herself not to make conclusions about other?s feelings or emotions. Appeared to benefit from gaining strategies to help client better manage conflict. Will continue IOP tx to reduce distorted thoughts that reinforce depression and anxiety, improve self-care and communication with supports, as well as improve overall functioning. Narrative Note: []
--- NOTE | 2021-06-06 09:18 | BH.COMM ---
Communication Note - Communication with Client Communication Note: Pt cancelled due to illness. IOP staff encouraged pt to get COVID tested due to symptoms.
--- NOTE | 2021-06-08 10:22 | BH.COMM ---
Communication Note - Communication with Client Communication Note: Cancelled again today. Was scheduled to see psychiatry.
--- NOTE | 2021-06-08 11:29 | BH.COMM ---
Communication Note - Communication with Client Communication Note: This therapist attempted to call pt to check-in on how she was doing mentally and physically since being sick. Pt did not answer and therapist left a message.
--- NOTE | 2021-06-10 09:12 | BH.COMM ---
Communication Note - Communication with Client Communication Note: pt cancelled her scheduled IOP group and individual sessions today due to physical health issues. Due to pt not attending this week, this therapist unable to meet with pt individually.
--- NOTE | 2021-06-10 11:44 | BH.COMM ---
Communication Note - Communication with Client Communication Note: cancelled IOP again today due to fibro flare-up.
--- NOTE | 2021-06-15 09:00 | BH.SGPN.GN ---
Behaviors/Verbalizations/Mental Status: [] Eye contact is good. Motor activity is appropriate. Appearance is casual. Speech is Appropriate. Mood is depressed. Affect is flat. Thoughts are linear and logical. No evidence of psychosis. Reviewed daily check in sheet and pt reports 2/5 for suicidal thoughts and 0/5 for intent. Primary therapist notified. Client Response/Progress/Benefit: [] Pt participated when prompted. Attentive. Daily symptom tracker notes 3/5 for depression, anxiety, and irritability. Mental health win was overcoming a social phobia. Shared that she has avoided seeing her daughter's ballet performance due to social anxiety and enclosed space. She attended the event yesterday. Utilized breathing and thought challenging skills. Proud of herself. Stressor reported to be upcoming holiday trip to visit her mother in [place]. She feels that she needs to get everything ready and organized herself. Admits that she has an issue with delegating. Group empathized the benefits of delegating and the importance of asking for help. Benefited from group support, encouragement, and feedback. Progress noted. Will continue in IOP to prevent decompensation and increase healthy coping skills. Narrative Note: []
--- NOTE | 2021-06-15 11:01 | BH.TPR ---
Treatment Plan Review Date of Admission:: 05/09/21 Date of Treatment Plan Review:: 06/15/21 Admitting Diagnoses:: Bipolar 1, most recent episode depression, severe without psychosis F 31.9; Generalized anxiety disorder Current Diagnoses:: Bipolar 1, most recent episode depression, severe without psychosis F 31.9; Generalized anxiety disorder Patient's Response to Treatment:: Client has responded well to treatment AEB client?s active engagement in group and her reduction of symptoms since admission (40% reduction). Per client?s DSM-5, depression has decreased by 20%, anxiety by 30%, and SI by 100%. Client self-reports that she is benefitting a lot from IOP as she is learning coping skills to manage her symptoms. However, client has had some inconsistent attendance which she attributes to her numerous health problems worsening in the last month. Client had a flareup of her fibromyalgia pain about 10 days ago and when this happens her anxiety and depression also get worse according to client. Status of Current Problems and Symptoms: Client's DSM-5 scores have decreased since admission, however, client continues to struggle with mood instability and coping with her physical health issues. Client's attendance has been poor due to health issues within the past few weeks. Client reports ongoing issues with sleep, concern of medication causing weight gain, lack of motivation and energy, ruminations, and feeling down. Client recently got several medical tests done and an MRI and the results are still pending which causes anxiety as well. Problem #1 Problem Name:: Depressive symptoms, anhedonia, suicidal ideations, and negative thinking. Status of Goals:: Objective 1-partially complete. Client?s DSM-5 scores for depression have decreased by 20% and SI has decreased by 100%. However, client continues to struggle with managing her depressed mood and her recent medical issues have impacted ability to utilize some of her coping skills. Objective 2- in progress. Client is learning about appropriate and inappropriate guilt and is working on combating this using self-compassion and accomplishment logs. Team Recommendations:: Treatment team encourages client to continue working on challenging negative thought patterns that reinforce depression and guilt. Treatment team also encourages client to increase attendance as client reports benefitting from IOP, but client is missing valuable information and chances to practice the coping skills when she misses sessions. Problem #2 Problem Name:: Anxiety and avoidance Status of Goals:: Objective 1- complete with ongoing work encouraged. Client?s DSM-5 scores for anxiety have decreased by 30% since admission. Additionally, client has learned about her triggers and warning signs as well as calming skills she can use to manage anxiety in the moment. Objective 2-partially complete. Client has learned about the cognitive distortions and how thoughts impact emotions. Client still unable to catch and replace ruminations without support. Team Recommendations:: Treatment team encourages client to reach out to her care team at [facility] to give client more information and clarification from her recent MRI and tests. Treatment team also recommends that client continue to work on challenging ruminations and utilizing opposite action to reduce anxiety.
--- NOTE | 2021-06-15 12:14 | PCM.BH.PN ---
Progress Note Progress Note: History of Present Illness/Interim History: [] The patient is a 50-year-old female who is seen in follow-up at the [facility] behavioral health IOP program. I last saw the patient about 1 month ago. The patient feels that she is deriving great benefit from the IOP program. She is learning valuable skills to manage her mental health issues. The patient has had some inconsistent attendance which she attributes to her numerous health problems worsening in the last month. She had a flareup of her fibromyalgia pain about 10 days ago and then when that happens her anxiety and depression also get worse according to the patient. She has had some decreased sleep due to rumination negatively. She complains of some weight gain which she found finds very significant on Remeron and Zyprexa. She had neuropsych testing done 2 weeks ago but the results are pending. She had other testing and labs done that show that her TSH is elevated to 5.75 and her med for her thyroid needs to be adjusted but she has not had an appointment yet with her doctor who manages this. She describes a weight gain of 15 to 20 pounds in the past 2 months which she attributes to the Zyprexa and Remeron and might also be made worse by her thyroid being a little low. 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 The patient was able to view this on her lab results but the doctor has not contacted her about this. The patient says that her passive thoughts of are much much less than they were a month ago. They occur rarely now. She denies any suicidal ideation, plan for suicide, homicidal ideation, hallucinations or delusions. She denies any manic symptoms. Current Psychiatric Medications: [] Savella 200 mg p.o. daily; gabapentin 600 mg p.o. nightly; Zyprexa 5 mg p.o. nightly (x1 month); Lamictal 100 mg p.o. daily; Remeron 15 mg p.o. nightly (x1 month); vitamin D3 Mental Status Examination: [] The patient is a 50-year-old female who is seen wearing a mask due to the pandemic and is casually dressed and groomed with good hygiene. She has no psychomotor agitation or retardation. She is cooperative and pleasant during the interview. Eye contact is good and speech is normal rate and rhythm and fluent with no pressure. Mood is depressed. Affect is mildly constricted. Thought process is goal-directed and organized. Thought content: There is no evidence of passive thoughts of or suicidal ideation or plan for suicide. There is no evidence of homicidal ideation, hallucinations, delusions or symptoms of mel. Judgment is intact. Insight is limited. Impulsivity is moderate. Diagnoses: [] 1. Bipolar 1 disorder, most recent episode depression, severe without psychosis 2. Generalized anxiety disorder 3. Chronic pain, migraine headaches and dizziness, fibromyalgia 4. Financial, housing and work issues 5. Primary support issues Plan: [] The patient will continue the IOP program at [facility] as the structure, support, education and group therapy will hopefully prevent worsening of the patient's symptoms which might require hospitalization. She felt safe during the interview and if it anytime she does not feel safe she will let us know or go to the emergency room. The risks, options, possible complications and side effects of the medications were again discussed with the patient and she understands and accepts these. She requests to come off of some of her medications that she feels is causing weight gain which will be detrimental to her health as her hemoglobin A1c is slightly elevated. The patient agrees to stop her Remeron. She will continue the other medications on the current doses. Later the patient remains stable we may wean and change her Zyprexa over to a medication that causes less weight gain. Patient will continue to follow-up with her outpatient and psychiatric providers and I will see the patient in 1 to 2 weeks.
--- NOTE | 2021-06-15 14:20 | BH.MDN ---
Multi-Disciplinary Note - Note 45-min Individual Time Started:: 10:20 Date: 06/15/21 Purpose of session/treatment goals addressed:: To address current symptoms, stressors, barriers to treatment, and application of coping skills. Another goal was to discuss aftercare plan. Eye Contact:: Good Motor Activity:: Restless Appearance:: Neat Speech:: Soft Mood:: Anxious, Dysthymic Affect:: Other - incongruent to mood AEB laughing while discussing stressors and health concerns. Thoughts:: Linear, No evidence of hallucinations/delusions noted Staff Interventions:: thought challenging, psychoeducation on: - stress, CBT techniques, strengths perspective, other - mom guilt Client Response:: Client responded well to session, open to meeting with therapist. Client reports she has been struggling both mentally and physically. Client shared she has been having a lot of fibromyalgia pain which exacerbates depression and guilt. Client reported I can't even do the simplest things which paying for it with pain. Client shared her oldest daughter is home for winter break which has been helpful and she's kind of been my rock. Client shared she has a lot of guilt for not being able to do the things she used to and for needing others' help so much. Processed this guilt and identified distortions contributing to the guilt. Client acknowledges that her distorted thoughts of self keep client from accepting and asking for help. Client also learned about the concept of mom guilt and how this additional expectation further reinforces difficulty asking for help. Addressed client's attendance and client understands that this barrier can impact client's ability to get the full benefit of IOP. Client reports plan to increase attendance after the holidays and willing to practice thought challenging outside of IOP. Risks/Concerns:: Client denies any passive thoughts of or suicidal ideations, plan, or intent as of 06/15/21. Client's inconsistent attendance continues to impact client's ability to participate in treatment. Progress Toward Goals/Plan:: Client's DSM-5 scores have decreased since admission, however, client continues to struggle with mood instability and coping with her physical health issues. Client's attendance has been poor due to health issues within the past few weeks. Client reports ongoing issues with sleep, concern of medication causing weight gain, lack of motivation and energy, ruminations, anxiety, guilt, and feeling down. Client recently got several medical tests done and an MRI and the results are still pending which causes anxiety as well. Client will continue IOP tx to prevent further decompensation and to increase use of healthy coping skills. Time Stopped:: 11:00
== END 2021-06-24 23:59 ==
LOC: BHIOP 09:00
PROVIDERS: PCP Family Medicine; Visit Provider Psychiatry & Neurology Psychiatry
DX: F31.4 Bipolar disorder, current episode depressed, severe, without psychotic features (principal); F41.1 Generalized anxiety disorder; G89.29 Other chronic pain; G43.909 Migraine, unspecified, not intractable, without status migrainosus; R42 Dizziness and giddiness; M79.7 Fibromyalgia; Z79.899 Other long term (current) drug therapy
CPT/HCPCS: S9480; 90832; 90834; 90853

== ENCOUNTER → 2021-06-08 11:35 | Outpatient (CLI) | payer BC, SELFPAY ==
[2021-06-08 15:28] LABS: Internal QC Validated? YES +Cl - CLEAR BKGD; Monotest Negative (Negative)
== END ==
PROVIDERS: PCP Family Medicine; Referring Provider Family Medicine; Visit Provider Nurse Practitioner Family
DX: J02.9 Acute pharyngitis, unspecified (principal)
CPT/HCPCS: 36415; 86308; 87070

== ENCOUNTER → 2021-06-20 12:23 | Outpatient (CLI) | payer BC, SELFPAY ==
[2021-06-20 16:32] LABS: Vitamin D,25 Hydroxy 29.5 ng/mL
== END ==
PROVIDERS: PCP Family Medicine; Referring Provider Nurse Practitioner Family; Visit Provider Nurse Practitioner Family
DX: E55.9 Vitamin D deficiency, unspecified (principal)
CPT/HCPCS: 36415; 82306

== ENCOUNTER 2021-06-28 09:00 | Outpatient (RCR) | payer BC, SELFPAY ==
[2021-06-25 00:35] VITALS: BP 135/85; PULSE 100
--- NOTE | 2021-06-29 10:59 | PCM.BH.PN ---
Progress Note Progress Note: History of Present Illness/Interim History: [] The patient is a 50-year-old female who is seen in follow-up at the [facility] behavioral health IOP program. I last saw the patient about 2 weeks ago and at that time we discontinued her Remeron as the patient was complaining of weight gain. Since that time the patient has had somewhat inconsistent attendance due to her various medical illnesses and complaints. The patient states that she feels she is doing okay overall and has not had any recent change in her mood. She is still somewhat depressed but is improving. Her sleep is still about 6 hours a night or more often. The patient did discuss her thyroid lab with her doctor and her thyroid medication was increased 1 week ago which may eventually help her depression symptoms. The patient still complains of ongoing dizziness and fibromyalgia which has been chronic. She has not noticed any side effects or worsening of symptoms since discontinuing the Remeron. She feels her appetite has decreased somewhat but she is uncertain if she has lost any weight. The patient has an appointment to see an ENT doctor for her parotid gland mass and yesterday she had dental fillings put in and has a lot of pain from this still present. She is encouraged to call her dentist about this pain. The patient requested also that I reviewed the neuropsych testing results that she showed me on her phone. The patient felt that the results suggested that she was exaggerating her symptoms but on reading them that was a very minimal suggestion. Mostly the conclusion was that the patient's cognitive symptoms probably are due to her depression and anxiety issues. Discussed this with the patient. Current Psychiatric Medications: [] Savella 200 mg p.o. daily; gabapentin 600 mg p.o. nightly; Zyprexa 5 mg p.o. nightly; Lamictal 100 mg p.o. daily; (Remeron DC'd 2 weeks ago) Mental Status Examination: [] Patient is a 50-year-old female who is seen wearing a mask due to the pandemic and is casually dressed and groomed with good hygiene. She is ambulatory with normal gait. She has no psychomotor agitation or retardation. She is cooperative and pleasant during the interview. Eye contact is good and speech is normal rate and rhythm and fluent with no pressure. Mood is depressed but improving. Affect is mildly constricted. Thought process is goal-directed and organized. Thought content: There is no evidence of passive thoughts of , suicidal ideation, plan for suicide, homicidal ideation, hallucinations, delusions or symptoms of mel. Judgment is intact. Insight is limited but improving. Impulsivity is moderate. Diagnoses: [] 1. Bipolar 1 disorder, most recent episode depression, severe without psychosis 2. Generalized anxiety disorder 3. Chronic pain, migraine headaches, chronic dizziness and fibromyalgia 4. Parotid gland mass 5. Primary support, financial, housing and work issues Plan: [] The patient will continue the IOP program at [facility] in behavioral health as the structure, support, education and group therapy will hopefully prevent worsening of the patient's symptoms. The patient felt safe during the interview and if it anytime she does not feel safe she will let us know or go to the emergency room. The risks, options, possible complications and side effects of the medications were again discussed with the patient and she understands and accepts these. Patient is encouraged to try to keep consistent attendance to the program as this should benefit her. No medication changes were made today. The patient will continue to follow-up with her outpatient medical and psychiatric providers.
--- NOTE | 2021-06-29 11:52 | BH.MDN_ITS ---
Multi-Disciplinary Note - Note 45-min Individual Time Started:: 10:30 Date: 06/29/20 Purpose of session/treatment goals addressed:: The purpose of this session was to address current symptoms, stressors, and mood since last session. Another goal was to complete a maintenance plan. Eye Contact:: Good Motor Activity:: Appropriate Appearance:: Neat Speech:: Soft Mood:: Anxious Affect:: Congruent Thoughts:: Linear, Logical, No evidence of hallucinations/delusions noted Staff Interventions:: thought challenging, CBT techniques, mindfulness skills, strengths perspective, other - completed a maintenance plan that included triggers, warning signs, coping skills/supports, and things to avoid to promote mental wellness. Client Response:: Client responded well to session, open to meeting with therapist. Client shared she has been enjoying time with her older daughter who is home for winter break. Client stated since her last session, she has been facing anxieties including getting dental work done. Client shared she contin ues to have fibromyalgia flare ups which makes it difficult to be as productive as client wants to be at home. Client also feels anxious and sad about her daughter returning to college in a week. Processed these emotions and client willing to work on a maintenance plan for depression and anxiety. Client identified her triggers for anxiety which included: loneliness, unknown, her daughter leaving, and an upcoming appointment. Client also identified what makes anxiety worse for client such as sitting and dwelling, isolating, and not taking steps to solve problems. Therapist and client came up with coping skills and supports client can turn to to cope with anxiety. Ideas included: scheduling mother-daughter dates, exploring water aerobics, deep breathing, cross- stitching, and challenging negative thoughts. Client can also talk to her friend and share her maintenance plan with her . Client then completed the same steps to for depression. Client recognized that having a daily routine and practicing self-care will help client better manage depression. Encouraged client to share her maintenance plan with a support person and to call her outpatient therapist to schedule a session post IOP. Risks/Concerns:: Client denies any passive thoughts of or suicidal ideations, plan, or intent. Progress Toward Goals/Plan:: Client missed last week of IOP due to medical appointments for her daughter. Client reports improvement in mood and reduced avoidance, but client continues to struggle with chronic pain. Client's sleep is improving and client has had no issues with her recent medication change. Continues to endorse depressive symptoms, but shared these are improving. Client is anxious and sad about her daughter returning to college in a week. Client will continue IOP tx to increase consistent use of healthy coping skills, reduce negative thinking patterns, and improve mood stability. Time Stopped:: 11:15
--- NOTE | 2021-07-06 14:59 | BH.DS_ITS ---
Discharge Summary - Demographics Date of Admission:: 05/09/21 Discharge Date: 07/06/21 Presenting Problems at Admission:: Client is a 50-year-old female with a history of bipolar disorder and ANEUDY. Client was referred to [facility] by her outpatient psychiatrist, Dr. Llamas, due to decompensation over the past several months. Client reports medical and mental health symptoms have been interfering with daily functioning which led to taking FMLA in June of 2020 and client ran out of FMLA in October 2020. Client currently not working because client is still unable to function at her baseline. Client currently endorses poor sleep (1-3 hours a night), increased appetite, low energy, lack of motivation, hopelessness, isolation, avoidance, and anhedonia. Client also reports panic attacks about 2-3 times a week and excessive worry about the well-being of her family. At [facility], client reports fleeting suicidal ideations, but denies any plan or intent. Client experiences physical pain associated with fibromyalgia which exacerbates her depression. Client reported at admission that her symptoms were significantly impacting her social, occupational, and familial functioning. Discharge Diagnoses:: Bipolar 1, most recent episode depression, severe without psychosis F 31.9; Generalized anxiety disorder Reason for Discharge:: Therapist met with treatment team and it was determined that client will be discharged from [facility] due to client's inability to follow the attendance policy. Client attended one [facility] session in the last three weeks which did not meet [facility] level of care. - Treatment Progress During Treatment & Response: Client responded somewhat well to [facility] as client self-reported that she is benefitting a lot from [facility] as she is learning coping skills to manage her symptoms. However, client had inconsistent attendance which she attributed to her numerous health problems worsening in the last month. Due to ongoing health issues, client has only attended one time in three weeks. Additionally, throughout her time in [facility], client has cancelled several times and had to leave early on multiple occasions. During individual sessions, client was receptive and willing to work on individual goals. Issues Still to be Addressed:: Client can continue to benefit from ongoing counseling to process and cope with ongoing psychosocial stressors from the last year. Client continues to struggle with identifying and verbalizing her emotions and asking for help. Client was working on challenging distortions, reducing isolation and avoidance, and improving daily functioning. Client also expressed interest in beginning to exercise and finding more social supports. Discharge Recommendations/Instructions:: Client will follow up with Dr. Llamas at [facility] for medication management and Samantha Montalvo at [place] [facility] for outpatient therapy. Discharge Handout: Complete Discharge Handout with client on aftercare options and continuity of care.
== END 2021-07-06 12:03 | disposition home or self-care (01) ==
LOC: BHIOP 09:00
PROVIDERS: PCP Family Medicine; Visit Provider Psychiatry & Neurology Psychiatry
DX: F31.4 Bipolar disorder, current episode depressed, severe, without psychotic features (principal); E21.5 Disorder of parathyroid gland, unspecified; F41.8 Other specified anxiety disorders; G89.4 Chronic pain syndrome; G43.909 Migraine, unspecified, not intractable, without status migrainosus; R42 Dizziness and giddiness; M79.7 Fibromyalgia; Z79.899 Other long term (current) drug therapy
CPT/HCPCS: S9480; 90834

== ENCOUNTER 2021-07-07 13:08 | Outpatient (CLI) | payer BC, SELFPAY ==
[2021-07-07 14:10] VITALS: BP 145/93; PULSE 120; RESP 16; TEMP 37.2; O2SAT 100; BMI 33.9
[2021-07-07 14:57] VITALS: BP 112/77; PULSE 107; RESP 16; TEMP 37.2; O2SAT 98
[2021-07-07 15:50] VITALS: BP 128/94; PULSE 98; RESP 16; TEMP 37; O2SAT 100
== END 2021-07-07 23:59 | disposition home or self-care (01) ==
LOC: MS3OUT 13:08 → MS3 13:09
PROVIDERS: PCP Family Medicine; Referring Provider Nurse Practitioner Acute Care; Visit Provider Nurse Practitioner Acute Care
DX: Z23 Encounter for immunization (principal); U07.1 COVID-19; E66.9 Obesity, unspecified
CPT/HCPCS: J7050; M0245; Q0245

== ENCOUNTER → 2022-03-20 | Outpatient (CLI) | payer BC, SELFPAY ==
[2022-03-20 12:12] LABS: Absolute Lymphocyte Count 1.82 X10^3/uL (0.83-4.51); Absolute Neutrophil Count 6.8 X10^3/uL (2.0-7.7); Basophil# 0.03 X10^3/uL; Basophil% 0.3 % (0-1); Hemoglobin 12.7 g/dL (12.0-15.0); Lymphocyte # 1.82 X10^3/ul (0.83-4.51); Lymphocyte % 19.6 % (19-41); Mean Corp Hgb Conc 31.8 g/dL (32-36); Mean Corpuscular Hgb 28.2 pg (27.0-32.0); Mean Corpuscular Volume 88.9 fL (81-99); Mean Platelet Vol. 10.1 fl (6.2-12.0); Monocyte# 0.54 X10^3/uL; Monocyte% 5.8 % (0-10); NRBC Flagged by Analyzer 0 % (0-5); Neutrophil # 6.83 X10^3/uL (2.7-7.7); Neutrophil % 73.8 % (47-70); Platelet Count 341 K/mm3 (150-450); RBC Distribution Width CV 13.8 % (11.6-14.6); RBC Distribution Width SD 44.7 fl (35.1-43.9); White Blood Count 9.3 K/mm3 (4.4-11.0)
[2022-03-20 12:39] LABS: ALB/GLOB Ratio 0.8 RATIO (0.9-2.4); AST(SGOT) 8 U/L (15-37); Alanine Aminotransfer ALT/SGPT 15 U/L (13-56); Albumin, Serum 3.1 g/dL (3.2-5.0); Alkaline Phosphatase 77 U/L (45-117); Anion Gap 9 (5-15); BUN 11 mg/dL (7-18); BUN/Creat Ratio 11.6 RATIO (10-20); Chloride 106 mmol/L (98-107); Creatinine, Serum 0.95 mg/dL (0.55-1.02); EST Glomerular Filtration Rate 66 mL/min (>60); Est Glom Filt Rate - Afr Amer 80 mL/min (>60); Globulin 4.1 g/dL (2.2-4.2); Glucose 102 mg/dL (74-106); Potassium 4.1 mmol/L (3.5-5.1); Protein, Total 7.2 g/dL (6.4-8.2); Sodium Level 136 mmol/L (136-145)
[2022-03-20 12:45] LABS: Hemoglobin A1c 5.5 % (3.8-5.6)
== END | disposition home or self-care (01) ==
LOC: MFPLAB 10:38
PROVIDERS: PCP Family Medicine; Referring Provider Family Medicine; Visit Provider Family Medicine
DX: M79.7 Fibromyalgia (principal); E88.81 Metabolic syndrome and other insulin resistance
CPT/HCPCS: 36415; 80053; 83036; 85025

== ENCOUNTER → 2022-04-25 | Outpatient (CLI) | payer BC, SELFPAY ==
--- NOTE | 2022-04-25 09:45 | BI_ITS ---
MAMMOGRAPHY - BILATERAL SCREENING REASON FOR EXAM: Female, 51 years old. Routine annual screening examination. PERTINENT HISTORY: Mother with breast cancer. TECHNIQUE: Digital bilateral breast alicia (3D mammographic acquisition) in the CC and MLO projections. 2-D mediolateral oblique (MLO) and craniocaudad (CC) views of both breasts were obtained. CAD: Full Field Digital Mammography with Computer Added Detection was performed. COMPARISON: Comparison is made with prior study dated 07/13/2014. FINDINGS: Breast Composition: There are scattered areas of fibroglandular density. There are no dominant masses or suspicious calcifications. No other significant abnormalities are identified. There has been no significant change since the prior study. BI/SCRN MAMM (CAD)W/ALICIA BILAT IMPRESSION: Stable bilateral screening mammogram. Yearly follow-up mammogram recommended. (A) ASSESSMENT CATEGORY: BIRADS Category 1: Negative. A letter regarding these results will be sent to the patient by the facility within 30 days. Approximately 10% of breast cancers are not detected by mammography. A normal mammogram should not delay biopsy of a clinically suspicious abnormality. [id number] Electronically Signed: Anthony Montejo MD at 10:33 EDT ,
== END | disposition home or self-care (01) ==
LOC: OPBI 09:43
PROVIDERS: PCP Family Medicine; Referring Provider Family Medicine; Visit Provider Family Medicine
DX: Z12.31 Encounter for screening mammogram for malignant neoplasm of breast (principal); Z80.3 Family history of malignant neoplasm of breast
CPT/HCPCS: 77063; 77067

== ENCOUNTER → 2022-05-26 | Outpatient (CLI) | payer BC, SELFPAY ==
[2022-05-26 18:06] LABS: Absolute Lymphocyte Count 1.32 X10^3/uL (0.83-4.51); Absolute Neutrophil Count 4.8 X10^3/uL (2.0-7.7); Basophil# 0.02 X10^3/uL; Basophil% 0.3 % (0-1); Hematocrit 41.8 % (37-47); Hemoglobin 13.2 g/dL (12.0-15.0); Lymphocyte # 1.32 X10^3/ul (0.83-4.51); Mean Corp Hgb Conc 31.6 g/dL (32-36); Mean Corpuscular Volume 88.6 fL (81-99); Mean Platelet Vol. 11.3 fl (6.2-12.0); Monocyte# 0.41 X10^3/uL; Monocyte% 6.2 % (0-10); NRBC Flagged by Analyzer 0 % (0-5); Neutrophil # 4.82 X10^3/uL (2.7-7.7); Platelet Count 327 K/mm3 (150-450); RBC Distribution Width CV 13.7 % (11.6-14.6); RBC Distribution Width SD 44.7 fl (35.1-43.9); Red Blood Count 4.72 M/mm3 (4.2-5.4); White Blood Count 6.6 K/mm3 (4.4-11.0)
[2022-05-26 18:32] LABS: AST(SGOT) 52 U/L (15-37); Alanine Aminotransfer ALT/SGPT 108 U/L (13-56); Albumin, Serum 3.4 g/dL (3.2-5.0); Alkaline Phosphatase 104 U/L (45-117); Anion Gap 11 (5-15); BUN 9 mg/dL (7-18); BUN/Creat Ratio 9.7 RATIO (10-20); Calcium,Total 9.2 mg/dL (8.5-10.1); Chloride 104 mmol/L (98-107); Creatinine, Serum 0.93 mg/dL (0.55-1.02); EST Glomerular Filtration Rate 68 mL/min (>60); Est Glom Filt Rate - Afr Amer 82 mL/min (>60); Globulin 3.5 g/dL (2.2-4.2); Glucose 104 mg/dL (74-106); Potassium 4.4 mmol/L (3.5-5.1); Protein, Total 6.9 g/dL (6.4-8.2); Sodium Level 137 mmol/L (136-145); T4 Free Direct 1.35 ng/dL (0.76-1.46); Thyroid Stim Hormone (TSH) 2.23 uIU/mL (0.358-3.74)
== END | disposition home or self-care (01) ==
LOC: MFPLAB 14:10
PROVIDERS: PCP Family Medicine; Referring Provider Family Medicine; Visit Provider Family Medicine
DX: G47.00 Insomnia, unspecified (principal)
CPT/HCPCS: 36415; 80053; 84439; 84443; 85025

== ENCOUNTER → 2022-08-15 | Outpatient (CLI) | payer BC, SELFPAY ==
[2022-08-15 12:47] LABS: ALB/GLOB Ratio 0.9 RATIO (0.9-2.4); AST(SGOT) 13 U/L (15-37); Alanine Aminotransfer ALT/SGPT 14 U/L (13-56); Albumin, Serum 3.4 g/dL (3.2-5.0); Alkaline Phosphatase 76 U/L (45-117); Anion Gap 9 (5-15); BUN 15 mg/dL (7-18); BUN/Creat Ratio 14.3 RATIO (10-20); Calcium,Total 9.4 mg/dL (8.5-10.1); Chloride 107 mmol/L (98-107); Cholesterol 257 mg/dL (200); Creatinine, Serum 1.05 mg/dL (0.55-1.02); EST Glomerular Filtration Rate 59 mL/min (>60); Est Glom Filt Rate - Afr Amer 71 mL/min (>60); Globulin 3.6 g/dL (2.2-4.2); Glucose 107 mg/dL (74-106); High Density Lipoprotein 54 mg/dL; Potassium 4.2 mmol/L (3.5-5.1); Sodium Level 139 mmol/L (136-145); Thyroid Stim Hormone (TSH) 0.88 uIU/mL (0.358-3.74); Triglycerides 211 mg/dL; Very Low Density Lipoprotein 42 mg/dL (5-40)
[2022-08-15 12:50] LABS: Hemoglobin A1c 5.3 % (3.8-5.6)
== END | disposition home or self-care (01) ==
LOC: MFPLAB 10:35
PROVIDERS: PCP Family Medicine; Referring Provider Family Medicine; Visit Provider Family Medicine
DX: E88.81 Metabolic syndrome and other insulin resistance (principal)
CPT/HCPCS: 36415; 80053; 80061; 83036; 84443

== ENCOUNTER → 2022-08-17 | Outpatient (CLI) | payer BC, SELFPAY ==
[2022-08-17 17:58] LABS: Absolute Lymphocyte Count 1.68 X10^3/uL (0.83-4.51); Absolute Neutrophil Count 5.9 X10^3/uL (2.0-7.7); Basophil# 0.03 X10^3/uL; Basophil% 0.4 % (0-1); Hematocrit 41.9 % (37-47); Hemoglobin 13.2 g/dL (12.0-15.0); Lymphocyte # 1.68 X10^3/ul (0.83-4.51); Lymphocyte % 20.6 % (19-41); Mean Corp Hgb Conc 31.5 g/dL (32-36); Mean Corpuscular Hgb 28.8 pg (27.0-32.0); Mean Corpuscular Volume 91.3 fL (81-99); Mean Platelet Vol. 10.1 fl (6.2-12.0); Monocyte# 0.48 X10^3/uL; Monocyte% 5.9 % (0-10); NRBC Flagged by Analyzer 0 % (0-5); Neutrophil # 5.94 X10^3/uL (2.7-7.7); Neutrophil % 72.7 % (47-70); Platelet Count 316 K/mm3 (150-450); RBC Distribution Width CV 14.3 % (11.6-14.6); RBC Distribution Width SD 48.5 fl (35.1-43.9); Red Blood Count 4.59 M/mm3 (4.2-5.4); White Blood Count 8.2 K/mm3 (4.4-11.0)
[2022-08-17 18:24] LABS: Rheumatoid Factor < 10.0 IU/mL (<15)
[2022-08-17 18:54] LABS: Erythrocyte Sedimentation Rate 19 mm/hr (0-30)
[2022-08-20 09:22] LABS: ANTINUCLEAR ANTIBODIES DIRECT Negative (Negative)
== END | disposition home or self-care (01) ==
LOC: MFPLAB 14:24
PROVIDERS: PCP Family Medicine; Referring Provider Family Medicine; Visit Provider Family Medicine
DX: M79.7 Fibromyalgia (principal)
CPT/HCPCS: 36415; 85025; 85652; 86038; 86140; 86225; 86235; 86431

== ENCOUNTER 2022-08-18 14:35 | Emergency (ER) | payer BC, SELFPAY ==
[2022-08-18 14:36] VITALS: BP 112/78; PULSE 89; RESP 18; TEMP 35.7; O2SAT 99
--- NOTE | 2022-08-18 15:38 | EDS_ITS ---
HPI History of Present Illness Chief Complaint: Shortness of Breath Informant: patient Onset/Context/Timing Onset: Today Context: gradual Timing: Continuous Quality: Positive for - (Cannot get enough air) Worsened by: Nothing Relieved by: Nothing Associated Symptoms rhinorrhea; Negative for cough, post nasal drip, ear pain, fever, sore throat, chills or sweats Chest Pain: Positive for None Narrative Narrative: Patient presents with shortness of breath that began today. Patient states she woke up with it. Patient states it is gradually gotten worse. Patient states he feels like she cannot get enough oxygen. Patient states nothing makes it worse and nothing makes it better. Patient admits to some mild rhinorrhea. Patient denies any cough. Patient denies any fevers or chills. Patient denies any chest pain. Patient states she was having some intermittent dizziness. Patient states she had an episode of nausea and vomiting with the dizziness. Patient states she was also having some pain in her back. Patient states she had a headache earlier today that was worse when she went out into the sunlight. [facility] Medical History Bipolar 1 disorder, depressed Fibromyalgia Generalized anxiety disorder GERD (gastroesophageal reflux disease) History of UTI Rheumatoid arthritis Thyroid disease Home Medications L norgest/E estradiol-E estrad 0.15 mg-30 mcg (84)/10 mcg(7) tabs,3mos (Ashlyna) 1 tab PO DAILY 03/05/19 [History Last Taken Unknown] gabapentin 600 mg tablet 600 mg PO QHS 10/12/20 [History Last Taken Unknown] magnesium 200 mg tablet 400 mg PO DAILY 10/12/20 [History Last Taken Unknown] cholecalciferol (vitamin D3) 1,250 mcg (50,000 unit) capsule 1,250 mcg PO QWEEK #4 caps 01/24/21 [Rx Last Taken Unknown] levothyroxine 25 mcg tablet 25 mcg PO DAILY 01/24/21 [History Last Taken Unknown] flurbiprofen 100 mg tablet 100 mg PO TID PRN pain #90 tabs 04/14/21 [Rx Last Taken Unknown] lamotrigine 100 mg tablet (Lamictal) 100 mg PO QHS 05/18/21 [History Last Taken Unknown] liothyronine 5 mcg tablet 5 mcg PO DAILY 05/18/21 [History Last Taken Unknown] milnacipran 100 mg tablet (Savella) 100 mg PO BID 05/18/21 [History Last Taken Unknown] spironolactone 50 mg tablet 50 mg PO DAILY 05/18/21 [History Last Taken Unknown] dexamethasone 6 mg tablet (Decadron) 6 mg PO DAILY #5 tabs 07/04/21 [Rx Last Taken Unknown] Allergy/AdvReac Type Severity Reaction Status Date / Time venlafaxine [From Effexor] AdvReac Severe 'I LOST MY Verified 01/24/22 13:40 MIND' Penicillins AdvReac Intermediate Swelling Verified 01/24/22 13:40 Surgical History History of tubal ligation Social History Smoking Status: Never smoker Electronic Cigarette Use: not used second hand exposure: No alcohol intake: current alcohol intake frequency: holidays/special occasions only substance use type: does not use ROS ROS ED Constitutional Constitutional ED: Denies chills or fever(s) Eyes Eyes: Reports blurry vision; Denies diplopia ENT ENT ED: Denies rhinorrhea or sore throat Cardiovascular Cardiovascular: Denies chest pain or palpitations Respiratory/Chest Respiratory/Chest: Reports dyspnea; Denies cough Gastrointestinal Gastrointestinal: Denies nausea or vomiting Genitourinary Genitourinary ED: Denies dysuria or hematuria Musculoskeletal Musculoskeletal: Reports back pain; Denies neck pain Integumentary Denies abscess or rash Neurologic Neurologic: Reports headache(s); Denies weakness Allergic/Immunologic Allergic/Immunologic ED: Denies mouth swelling or urticaria EXAM Physical Exam Const Vital Signs: 08/18/22 14:36 08/18/22 15:51 08/18/22 15:56 Temperature 96.2 F L Temperature Source Temporal Pulse Rate 89 70 Respiratory Rate 18 17 Respiratory Effort Non-Labored Respiratory Pattern Normal Blood Pressure 112/78 Blood Pressure Mean 89 Pulse Ox 99 Oxygen Delivery Method Room Air Room Air Fraction of Inspired Oxygen (FIO2) 100 08/18/22 18:05 Temperature Temperature Source Pulse Rate 73 Respiratory Rate 20 H Respiratory Effort Respiratory Pattern Blood Pressure Blood Pressure Mean Pulse Ox 100 Oxygen Delivery Method Room Air Fraction of Inspired Oxygen (FIO2) Positive well nourished and well developed General Appearance ED: well developed HEENT Reports moist mucous membranes Neck supple and no JVD Resp normal respiratory effort and clear to auscultation bilaterally Cardio regular rate, regular rhythm and no murmurs GI normal to inspection, nondistended, normoactive bowel sounds and non-tender Palpation: soft Extremity normal to inspection General Extremety ED: Negative for edema or tenderness General Extremity: Negative for edema Neuro oriented x3, CN's II-XII intact bilaterally and no sensory deficits noted Sensorium / Orientation: alert Motor Exam: strength 5/5 throughout Psych mental status grossly normal Skin no rashes or lesions noted MDM MDM MDM Narrative Medical decision making narrative: Frontal diagnosis includes pulmonary embolism, pneumonia, pneumothorax, viral bronchitis, COVID-19 infection, influenza infection, congestive heart failure, anemia, and electrolyte abnormality. EKG will be obtained to assess for cardiac dysrhythmia and cardiac ischemia. CBC will be obtained to assess for leukocytosis and anemia. Basic metabolic profile will be obtained to assess for electrolyte abnormality and renal function. D-dimer will be obtained to assess for pulmonary embolism. High-sensitivity troponin will be obtained to assess for cardiac ischemia. BNP will be obtained to assess for congestive heart failure. Chest x-ray will be obtained to assess for pneumonia, pneumothorax, congestive heart failure, and cardiomegaly. COVID-19 rapid antigen will be obtained to assess for COVID infection. Influenza A and influenza B antigens will be obtained to assess for influenza infection. Lab Data Attestation: I reviewed the patient's lab results. Lab results narrative: CBC was reviewed and was within normal limits. Basic metabolic profile was reviewed and was within normal limits. D-dimer was reviewed and was negative. High-sensitivity troponin was reviewed and was within normal limits. COVID-19 rapid antigen was reviewed and was negative. Influenza A and influenza B rapid antigens were reviewed and were negative. BNP was reviewed and was normal. Labs: Laboratory Results - last 24 hr 08/18/22 08/18/22 08/18/22 16:25 16:25 17:20 WBC Cancelled Corrected WBC Cancelled RBC Cancelled Hgb Cancelled Hct Cancelled MCV Cancelled MCH Cancelled MCHC Cancelled RDW Std Deviation Cancelled RDW Coeff of Nani Cancelled Plt Count Cancelled MPV Cancelled Immature Gran % (Auto) Cancelled Neut % (Auto) Cancelled Lymph % (Auto) Cancelled [place] % (Auto) Cancelled Eos % (Auto) Cancelled Baso % (Auto) Cancelled Absolute Neuts (auto) Cancelled Absolute Lymphs (auto) Cancelled Total Counted Cancelled Neutrophils % (Manual) Cancelled Band Neutrophils % Cancelled Lymphocytes % (Manual) Cancelled Monocytes % (Manual) Cancelled Eosinophils % (Manual) Cancelled Basophils % (Manual) Cancelled Metamyelocytes % Cancelled Myelocytes % Cancelled Promyelocytes % Cancelled Blast Cells % Cancelled Plasma Cell % (Manual) Cancelled Other Cells % Cancelled Nucleated RBC % Cancelled Nucleated RBCs/100 WBC Cancelled Differential Comment Cancelled Diff Path Review Cancelled Hypersegmented Neuts Cancelled Atypical Lymphocytes Cancelled Reactive Lymphocytes Cancelled Smudge Cells Cancelled Toxic Granulation Cancelled Toxic Vacuolation Cancelled Dohle Bodies Cancelled Litzy Rods Cancelled Platelet Estimate Cancelled Plt Morphology Comment Cancelled RBC Morphology Cancelled Polychromasia Cancelled Hypochromasia Cancelled Poikilocytosis Cancelled Basophilic Stippling Cancelled Anisocytosis Cancelled Microcytosis Cancelled Macrocytosis Cancelled Spherocytes Cancelled Sickle Cells Cancelled Target Cells Cancelled Tear Drop Cells Cancelled Ovalocytes Cancelled Stomatocytes Cancelled [place] Bodies Cancelled [place] Cells Cancelled Bite Cells Cancelled Crenated Cell Cancelled Acanthocytes (Spur) Cancelled Rouleaux Cancelled Schistocytes Cancelled D-Dimer Quant (PE/DVT) < 0.27 L Sodium 138 Potassium 5.1 Chloride 106 Carbon Dioxide 22.0 Anion Gap 10 BUN 16 Creatinine 1.13 H Estim Creat Clear Calc 55.76 Est GFR (MDRD) Af Amer 66 Est GFR (MDRD) Non-Af 54 L BUN/Creatinine Ratio 14.2 Glucose 82 Calcium 10.0 Troponin I High Sens 5 B-Natriuretic Peptide 08/18/22 08/18/22 17:20 17:20 WBC 10.9 Corrected WBC RBC 4.68 Hgb 13.6 Hct 40.8 MCV 87.2 MCH 29.1 MCHC 33.3 D RDW Std Deviation 44.8 H RDW Coeff of Nani 14.1 Plt Count 265 MPV 9.7 Immature Gran % (Auto) 0.500 Neut % (Auto) 81.6 H Lymph % (Auto) 13.0 L [place] % (Auto) 4.6 Eos % (Auto) 0.0 Baso % (Auto) 0.3 Absolute Neuts (auto) 8.9 H Absolute Lymphs (auto) 1.42 Total Counted Neutrophils % (Manual) Band Neutrophils % Lymphocytes % (Manual) Monocytes % (Manual) Eosinophils % (Manual) Basophils % (Manual) Metamyelocytes % Myelocytes % Promyelocytes % Blast Cells % Plasma Cell % (Manual) Other Cells % Nucleated RBC % 0 Nucleated RBCs/100 WBC Differential Comment Diff Path Review Hypersegmented Neuts Atypical Lymphocytes Reactive Lymphocytes Smudge Cells Toxic Granulation Toxic Vacuolation Dohle Bodies Litzy Rods Platelet Estimate Plt Morphology Comment RBC Morphology Polychromasia Hypochromasia Poikilocytosis Basophilic Stippling Anisocytosis Microcytosis Macrocytosis Spherocytes Sickle Cells Target Cells Tear Drop Cells Ovalocytes Stomatocytes [place] Bodies Miriam Cells Bite Cells Crenated Cell Acanthocytes (Spur) Rouleaux Schistocytes D-Dimer Quant (PE/DVT) Sodium Potassium Chloride Carbon Dioxide Anion Gap BUN Creatinine Estim Creat Clear Calc Est GFR (MDRD) Af Amer Est GFR (MDRD) Non-Af BUN/Creatinine Ratio Glucose Calcium Troponin I High Sens B-Natriuretic Peptide 14.8 Radiography Chest X-Ray - ED: 2 View, Read by ED Physician, Read by Radiologist, Normal and No Acute Disease Diagnostic Testing: Clinical Impression(s) from Imaging Studies Chest X-Ray 08/18/22 16:10 IMPRESSION: Normal x-ray examination of the chest. Electronically Signed: Wiliam Morgan MD at 16:30 EST Reading Location ID and State: [address] [place] [address] , Service support , PA and lateral chest x-ray was obtained. There are 2 views. On my independent interpretation, lung marley are clear. There is normal cardiac silhouette. Bony thorax is normal. There is no acute process noted. Radiologist also interpreted the x-ray and agrees. EKG Initial EKG: Attestation: I personally reviewed and interpreted this EKG as follows: Interpretation: Sinus Rhythm (66) and No Acute Injury Pattern Comments: EKG was obtained. On my independent interpretation, it showed a normal sinus rhythm with a rate of 66. FL interval, QRS interval, and QTc intervals were all normal. Beaver was normal. There are no acute ST or T wave changes. Prior EKG tracings: available for review Prior: Unchanged (03/10/2019) Treatment and Re-Evaluation Narrative: Patient is feeling better on reevaluation. Patient was advised of her findings. Patient was advised that this may be a viral upper respiratory infection. Patient was instructed to take Tylenol or ibuprofen as needed for any aches or fevers. Patient was instructed to drink plenty of fluids. Patient was instructed to take [id number] cough medicines as needed. Patient was instructed to follow-up with her primary care physician in 5 to 7 days. Patient understood and was agreeable with the plan. All questions were answered. Discharge Plan Triage Chief Complaint: Shortness of Breath Other Complaint: Dizziness ED Provider: Aroldo June Dx/Rx/DC Orders Clinical Impression: Viral upper respiratory tract infection, Bronchitis, Fibromyalgia Instructions: ED URI, Viral, No Abx (Adult) Prescriptions: No Action L norgest/e.estradiol-e.estrad [Ashlyna] 0.15 mg-30 mcg (84)/10 mcg (7) tablets,dose pack,3 month 1 tab PO DAILY gabapentin 600 mg tablet 600 mg PO QHS magnesium 200 mg tablet 400 mg PO DAILY ubrogepant [Ubrelvy] 50 mg tablet 50 mg PO DAILY PRN PRN (Reason: Migraine Headache) 0RF levothyroxine 25 mcg tablet 25 mcg PO DAILY Label Comments: take 1 tablet by mouth every morning cholecalciferol (vitamin D3) 1,250 mcg (50,000 unit) capsule 1,250 mcg PO QWEEK Qty: 4 2RF dexamethasone [Decadron] 6 mg tablet 6 mg PO DAILY Qty: 5 0RF liothyronine 5 mcg Tablet 5 mcg PO DAILY lamotrigine [Lamictal] 100 mg Tablet 100 mg PO QHS spironolactone 50 mg Tablet 50 mg PO DAILY Savella 100 mg Tablet 100 mg PO BID flurbiprofen 100 mg tablet 100 mg PO TID PRN (Reason: pain) Qty: 90 2RF Primary Care Provider: Aroldo Walton Referrals: Aroldo Walton MD [Primary Care Provider] - 5-7 Days Disposition Disposition: Home, Self Care
--- NOTE | 2022-08-18 15:46 | EKG12_ITS ---
Test Reason : Blood Pressure : / mmHG Vent. Rate : 066 BPM Atrial Rate : 066 BPM P-R Int : 134 ms QRS Dur : 076 ms QT Int : 400 ms P-R-T Axes : 020 021 034 degrees QTc Int : 419 ms Normal sinus rhythm Normal ECG Confirmed by ENEIDA ROMERO, BELA ([id number]), online editor JIMBO LILLY ([id number]) on 08/22/2022 8:55:14 AM Referred By: Confirmed By:BELA MONIQUE MD
[2022-08-18] MEDS: Ipratropium/Albuterol Sulfate 3 ML AMPUL.NEB INHALATION (15:51)
[2022-08-18 15:56] VITALS: PULSE 70; RESP 17
--- NOTE | 2022-08-18 16:10 | RAD_ITS ---
STUDY: X-RAY CHEST REASON FOR EXAM: Female, 52 years old. Dyspnea TECHNIQUE: Single frontal view of the chest. COMPARISON: March 10, 2019 FINDINGS: The lungs are clear and expanded. There is no demonstrated pleural abnormality. Normal size heart. Normal mediastinum and henry. Normal visualized pulmonary arteries. Normal visualized aortic arch and descending thoracic aorta. Normal visualized thoracic spine. Normal visualized ribs, clavicles, and shoulders. There is no demonstrated abnormality of the visualized soft tissue structures of the upper abdomen. RAD/Chest PA and Lateral IMPRESSION: Normal x-ray examination of the chest. Electronically Signed: Wiliam Morgan MD at 16:30 EST ,
[2022-08-18 17:29] LABS: Anion Gap 10 (5-15); BUN 16 mg/dL (7-18); BUN/Creat Ratio 14.2 RATIO (10-20); Chloride 106 mmol/L (98-107); Creatinine, Serum 1.13 mg/dL (0.55-1.02); EST Glomerular Filtration Rate 54 mL/min (>60); Est Glom Filt Rate - Afr Amer 66 mL/min (>60); Estimated Creatinine Clearance 55.76 ml/min; Glucose 82 mg/dL (74-106); Potassium 5.1 mmol/L (3.5-5.1); Sodium Level 138 mmol/L (136-145); Troponin-I HS 5 pg/mL (3.0-54.0)
[2022-08-18 17:29] LABS: Absolute Lymphocyte Count 1.42 X10^3/uL (0.83-4.51); Absolute Neutrophil Count 8.9 X10^3/uL (2.0-7.7); Basophil# 0.03 X10^3/uL; Basophil% 0.3 % (0-1); Hematocrit 40.8 % (37-47); Hemoglobin 13.6 g/dL (12.0-15.0); Lymphocyte # 1.42 X10^3/ul (0.83-4.51); Mean Corp Hgb Conc 33.3 g/dL (32-36); Mean Corpuscular Hgb 29.1 pg (27.0-32.0); Mean Corpuscular Volume 87.2 fL (81-99); Mean Platelet Vol. 9.7 fl (6.2-12.0); Monocyte% 4.6 % (0-10); NRBC Flagged by Analyzer 0 % (0-5); Neutrophil # 8.93 X10^3/uL (2.7-7.7); Neutrophil % 81.6 % (47-70); Platelet Count 265 K/mm3 (150-450); RBC Distribution Width CV 14.1 % (11.6-14.6); RBC Distribution Width SD 44.8 fl (35.1-43.9); Red Blood Count 4.68 M/mm3 (4.2-5.4); White Blood Count 10.9 K/mm3 (4.4-11.0)
[2022-08-18 17:45] LABS: D-Dimer Quantitative (DVT/PE) < 0.27 FEU/ug/m (0.27-0.49)
[2022-08-18 17:49] LABS: BNP,B-Type NATRIURETIC PEPTIDE 14.8 pg/mL (0-100)
[2022-08-18 18:05] VITALS: PULSE 73; RESP 20; O2SAT 100
[2022-08-18 19:58] VITALS: PULSE 78; RESP 18; O2SAT 98
== END 2022-08-18 19:58 | disposition home or self-care (01) ==
PROVIDERS: Emergency Provider Emergency Medicine; PCP Family Medicine; Visit Provider Emergency Medicine
DX: J06.9 Acute upper respiratory infection, unspecified (principal); J40 Bronchitis, not specified as acute or chronic; M79.7 Fibromyalgia
CPT/HCPCS: 71046; 80048; 83880; 84484; 85025; 85379; 87428; 93005; 94640; 99283

== ENCOUNTER → 2022-10-16 | Outpatient (CLI) | payer BC, SELFPAY ==
[2022-10-16 12:19] LABS: Hematocrit 41.9 % (37-47); Hemoglobin 13.9 g/dL (12.0-15.0); Mean Corp Hgb Conc 33.2 g/dL (32-36); Mean Corpuscular Hgb 29.1 pg (27.0-32.0); Mean Corpuscular Volume 87.8 fL (81-99); Mean Platelet Vol. 10.4 fl (6.2-12.0); Platelet Count 368 K/mm3 (150-450); RBC Distribution Width CV 12.9 % (11.6-14.6); RBC Distribution Width SD 41.3 fl (35.1-43.9); Red Blood Count 4.77 M/mm3 (4.2-5.4); White Blood Count 9.7 K/mm3 (4.4-11.0)
[2022-10-16 13:00] LABS: ALB/GLOB Ratio 0.8 RATIO (0.9-2.4); AST(SGOT) 11 U/L (15-37); Alanine Aminotransfer ALT/SGPT 24 U/L (13-56); Albumin, Serum 3.4 g/dL (3.2-5.0); Alkaline Phosphatase 81 U/L (45-117); Anion Gap 7 (5-15); BUN 15 mg/dL (7-18); BUN/Creat Ratio 14.7 RATIO (10-20); Calcium,Total 9.5 mg/dL (8.5-10.1); Chloride 106 mmol/L (98-107); Creatinine, Serum 1.02 mg/dL (0.55-1.02); EST Glomerular Filtration Rate 61 mL/min (>60); Est Glom Filt Rate - Afr Amer 74 mL/min (>60); Ferritin 55 ng/mL (8-252); GGTP 41 U/L (5-55); Globulin 4.1 g/dL (2.2-4.2); Glucose 86 mg/dL (74-106); Lipase 30 U/L (13-75); Potassium 3.7 mmol/L (3.5-5.1); Prolactin 9.4 ng/mL; Protein, Total 7.5 g/dL (6.4-8.2); Sodium Level 134 mmol/L (136-145); Thyroid Stim Hormone (TSH) 3.34 uIU/mL (0.358-3.74)
== END | disposition home or self-care (01) ==
LOC: MFPLAB 09:32
PROVIDERS: PCP Family Medicine; Visit Provider Family Medicine
DX: R53.83 Other fatigue (principal); R10.11 Right upper quadrant pain; N92.1 Excessive and frequent menstruation with irregular cycle
CPT/HCPCS: 36415; 80053; 82728; 82977; 83690; 84146; 84443; 85027; 86140; 87086

== ENCOUNTER 2022-10-18 16:18 | Emergency (ER) | payer BC, SELFPAY ==
[2022-10-18 16:19] VITALS: BP 99/78; PULSE 91; RESP 16; TEMP 36.3; O2SAT 100; BMI 28.4
--- NOTE | 2022-10-18 16:35 | CT_ITS ---
STUDY: CT ABDOMEN AND PELVIS WITHOUT CONTRAST REASON FOR EXAM: Female, 52 years old. flank pain RADIATION DOSAGE (If Supplied By Facility): CTDIvol = ( 9.07 ) mGy, DLP = ( 482.49 ) mGycm TECHNIQUE: Transaxial images were obtained from the dome of the diaphragm to the symphysis pubis without oral contrast, and without intravenous contrast. Sagittal and coronal images were reconstructed. Individualized dose optimization techniques were used for this CT. COMPARISON: None. FINDINGS: The visualized lung bases are unremarkable. The visualized portions of the heart are within normal limits. Normal liver. Normal gallbladder and extrahepatic biliary system. Normal spleen. Normal pancreas. Normal bilateral adrenal glands. Normal right kidney. Normal left kidney. Normal visualized stomach. Normal small intestine. Diffuse fecal retention within the colon.. No evidence for acute appendicitis.. Normal abdominal aorta. Normal inferior vena cava. Normal retroperitoneum. Poorly distended thick walled bladder likely of no significance. Postsurgical change status post left tubal ligation. There is also a surgical clip seen posteriorly possibly status post rectal resection however clinical correlation is recommended. Normal abdominal wall. Normal osseous structures. CT/Abdomen/Pelvis without Cont IMPRESSION: No acute abnormalities identified. Postsurgical changes status post left tubal ligation and possibly rectal resection.. Electronically Signed: Ej Valencia MD at 17:51 EDT ,
--- NOTE | 2022-10-18 16:36 | EDS_ITS ---
HPI History of Present Illness Chief Complaint: Hypotension Detail of Chief Complaint: Not feeling well and low blood pressure Informant: patient Narrative Narrative: Patient presents the emergency department with her significant other. She has not been feeling well for about 2 weeks. Patient was seen by her primary care physician 2 days ago because she has been having dysuria and frequency and feeling like she is not emptying her bladder completely. Patient had a urinalysis ordered and was started empirically on cephalexin. Patient not feeling any better. Apparently her blood pressure was low in the office at 100/60. Patient states normally her systolic is around 130. She has had some episodes of feeling lightheaded. Patient complaining of some pain in her back and her right upper quadrant. She complains of pain in her right upper quadrant when she eats. She has had nausea and vomiting and throws up about once every 3 days. Patient denies any fever. [facility] Medical History Bipolar 1 disorder, depressed Fibromyalgia Generalized anxiety disorder GERD (gastroesophageal reflux disease) History of UTI Rheumatoid arthritis Thyroid disease Home Medications L norgest/E estradiol-E estrad 0.15 mg-30 mcg (84)/10 mcg(7) tabs,3mos (Ashlyna) 1 tab PO DAILY 03/05/19 [History Last Taken Unknown] gabapentin 600 mg tablet 600 mg PO QHS 10/12/20 [History Last Taken Unknown] magnesium 200 mg tablet 400 mg PO DAILY 10/12/20 [History Last Taken Unknown] cholecalciferol (vitamin D3) 1,250 mcg (50,000 unit) capsule 1,250 mcg PO QWEEK #4 caps 01/24/21 [Rx Last Taken Unknown] levothyroxine 25 mcg tablet 25 mcg PO DAILY 01/24/21 [History Last Taken Unknown] flurbiprofen 100 mg tablet 100 mg PO TID PRN pain #90 tabs 04/14/21 [Rx Last Taken Unknown] lamotrigine 100 mg tablet (Lamictal) 100 mg PO QHS 05/18/21 [History Last Taken Unknown] liothyronine 5 mcg tablet 5 mcg PO DAILY 05/18/21 [History Last Taken Unknown] milnacipran 100 mg tablet (Savella) 100 mg PO BID 05/18/21 [History Last Taken Unknown] spironolactone 50 mg tablet 50 mg PO DAILY 05/18/21 [History Last Taken Unknown] dexamethasone 6 mg tablet (Decadron) 6 mg PO DAILY #5 tabs 07/04/21 [Rx Last Taken Unknown] Allergy/AdvReac Type Severity Reaction Status Date / Time venlafaxine [From Effexor] AdvReac Severe 'I LOST MY Verified 10/18/22 16:21 MIND' Penicillins AdvReac Intermediate Swelling Verified 10/18/22 16:21 Surgical History History of tubal ligation Social History Smoking Status: Never smoker Electronic Cigarette Use: not used second hand exposure: No alcohol intake: current alcohol intake frequency: holidays/special occasions only substance use type: does not use ROS ROS ED Review of Systems ROS Unobtainable: other Constitutional Constitutional ED: Reports lethargy; Denies chills, fever(s), sweats or weight loss Eyes Eyes: Denies blurry vision, change in vision or diplopia ENT ENT ED: Denies rhinorrhea or sore throat Cardiovascular Cardiovascular: Denies chest pain, orthopnea or racing heartbeat Respiratory/Chest Respiratory/Chest: Denies cough, dyspnea, dyspnea on exertion, orthopnea or sput um Gastrointestinal Gastrointestinal: Reports abdominal pain; Denies diarrhea, nausea or vomiting Genitourinary Genitourinary ED: Reports dysuria and urinary frequency; Denies hematuria Musculoskeletal Musculoskeletal: Reports back pain; Denies arthralgias, myalgias or neck pain Integumentary Denies abscess, Abrasions or rash Neurologic Neurologic: Denies headache(s) or weakness Psychiatric Psychiatric: Denies anxiety, depression or suicidal thoughts Endocrine Endocrinology: Denies polydipsia, polyphagia or polyuria Hematologic/Lymphatic Hematologic/Lymphatic: Denies easy bleeding, easy bruising or lymphadenopathy Allergic/Immunologic Allergic/Immunologic ED: Denies mouth swelling, tongue swelling or urticaria EXAM Physical Exam Const Vital Signs: 10/18/22 16:19 10/18/22 16:46 10/18/22 18:47 Temperature 97.3 F L Temperature Source Temporal Pulse Rate 91 60 Pulse Rate [Lying] 80 Pulse Rate [Sitting (for 1 minute prior to obtaining)] 91 Pulse Rate [Standing (for 1 minute prior to obtaining)] 107 H Respiratory Rate 16 20 H Blood Pressure 99/78 107/88 H Blood Pressure [Lying] 93/62 Blood Pressure [Sitting (for 1 minute prior to obtaining)] 106/72 Blood Pressure [Standing (for 1 minute prior to obtaining)] 116/75 Blood Pressure Mean 85 94 Blood Pressure Mean [Lying] 72 Blood Pressure Mean [Sitting (for 1 minute prior to obtaining)] 83 Blood Pressure Mean [Standing (for 1 minute prior to obtaining)] 88 Pulse Ox 100 98 Oxygen Delivery Method Room Air Room Air Positive well nourished and well developed General Appearance ED: well developed and NAD HEENT Reports TM's clear and moist mucous membranes normocephalic and atraumatic; Negative for trauma or tenderness Tympanic Membrane ED: Yes TM's clear Eyes PERRL and EOMs intact bilaterally General Eye ED: Negative for pale conjunctiva or scleral icterus Neck no lymphadenopathy, supple and no JVD General: Negative for tenderness Chest Wall inspection of chest normal and palpation of chest normal Chest: Negative for tenderness Resp normal respiratory effort and clear to auscultation bilaterally Effort and Inspection: Negative for respiratory distress or pain with movement Auscultation: Negative for rhonchi, wheezes or diminished lung sounds Cardio regular rate, regular rhythm, S1 normal heart sound, S2 normal heart sound and no murmurs Peripheral Pulses: pulses 2+ throughout GI normal to inspection, nondistended, normoactive bowel sounds, soft to palpation, non-distended and no masses GI Narrative: Tenderness to palpation over right upper quadrant with some guarding. There is no rebound, rigidity, or. Signs. No mass palpated. Have CVA tenderness on the right. Back/Spine Back/Spine Narrative: Positive CVA tenderness on the right. Extremity normal to inspection General Extremety ED: Negative for edema General Extremity: Negative for edema Neuro oriented x3, CN's II-XII intact bilaterally, no sensory deficits noted and gait normal Sensorium / Orientation: awake, alert, oriented to person, oriented to place and oriented to time Motor Exam: strength 5/5 throughout and strength abnormal Psych mental status grossly normal Skin no rashes or lesions noted and no wounds MDM MDM MDM Narrative Medical decision making narrative: Patient presents with concern for UTI and low blood pressure. Patient denies fever. She complains of back pain and abdominal pain. The differential was UTI versus kidney stone versus sepsis although I feel this is less likely. Patient had a CBC with differential obtained that showed a white count 7.8 with a hemoglobin of 14 and hematocrit of 42. Platelet count was 299. Chemistries unremarkable. LFTs were normal. Lipase was normal. Urinalysis showed 25-50 RBCs but no WBCs and no bacteria. Patient had orthostatic vital signs and her blood pressure actually increased. Orthostatics were negative. She had a CT scan of the abdomen pelvis that essentially did not show anything acute. Gallbladder appeared normal. No kidney stones. At this time patient will be discharged to home and she will be referred to urology for follow-up as she may have a spastic bladder potentially or other bladder issue that may be causing her symptoms. She is advised to finish her antibiotics. She had an ultrasound of her gallbladder scheduled for tomorrow although I do not clinically feel she has acute cholecystitis. Patient advised to push fluids. Patient to return to ER if dizziness, syncope, worsening abdominal pain, fever, or condition worsening way Lab Data Attestation: I reviewed the patient's lab results. Labs: Laboratory Results - last 24 hr 10/18/22 10/18/22 10/18/22 16:45 16:45 17:05 WBC 7.8 RBC 4.88 Hgb 14.0 Hct 42.5 MCV 87.1 MCH 28.7 MCHC 32.9 RDW Std Deviation 41.1 RDW Coeff of Nani 13.1 Plt Count 299 MPV 10.0 Immature Gran % (Auto) 0.600 Neut % (Auto) 77.0 H Lymph % (Auto) 15.7 L Villalba % (Auto) 6.3 Eos % (Auto) 0.0 Baso % (Auto) 0.4 Absolute Neuts (auto) 6.0 Absolute Lymphs (auto) 1.22 Nucleated RBC % 0 Sodium 135 L Potassium 3.7 Chloride 106 Carbon Dioxide 24.0 Anion Gap 5 BUN 15 Creatinine 1.12 H Estim Creat Clear Calc 56.26 Est GFR (MDRD) Af Amer 66 Est GFR (MDRD) Non-Af 55 L BUN/Creatinine Ratio 13.4 Glucose 131 H Calcium 9.2 Total Bilirubin 0.40 AST 15 ALT 26 Alkaline Phosphatase 85 Total Protein 7.4 Albumin 3.2 Globulin 4.2 Albumin/Globulin Ratio 0.8 L Lipase 28 Urine Color Yellow Urine Clarity Clear Urine pH 5.0 Ur Specific [place] 1.025 Urine Protein 30 H Urine Glucose (UA) Normal Urine Ketones 50 H Urine Occult Blood 250 H Urine Nitrite Negative Urine Bilirubin 3 H Urine Urobilinogen 4 H Ur Leukocyte Esterase 25 H Urine RBC 25-50 SEEN Urine WBC 0 SEEN Ur Squamous Epith Cells 0-5 SEEN Urine Bacteria 0 SEEN Hyaline Casts 25-50 SEEN Urine Mucus 2+ Radiography Diagnostic Testing: Clinical Impression(s) from Imaging Studies Abdomen/Pelvis CT 10/18/22 16:35 IMPRESSION: No acute abnormalities identified. Postsurgical changes status post left tubal ligation and possibly rectal resection.. Electronically Signed: Ej Valencia MD at 17:51 EDT , Discharge Plan Triage Chief Complaint: Hypotension ED Provider: Kayli Nunez Dx/Rx/DC Orders Clinical Impression: Abdominal pain, Back pain, Dysuria Instructions: ED Abdominal Pain Unkn Cause Fem, ED Back Pain (Acute or Chronic), ED Dysuria, Uncertain Cause (Adult) Prescriptions: No Action L norgest/e.estradiol-e.estrad [Ashlyna] 0.15 mg-30 mcg (84)/10 mcg (7) tablets,dose pack,3 month 1 tab PO DAILY gabapentin 600 mg tablet 600 mg PO QHS magnesium 200 mg tablet 400 mg PO DAILY ubrogepant [Ubrelvy] 50 mg tablet 50 mg PO DAILY PRN PRN (Reason: Migraine Headache) 0RF levothyroxine 25 mcg tablet 25 mcg PO DAILY Label Comments: take 1 tablet by mouth every morning cholecalciferol (vitamin D3) 1,250 mcg (50,000 unit) capsule 1,250 mcg PO QWEEK Qty: 4 2RF dexamethasone [Decadron] 6 mg tablet 6 mg PO DAILY Qty: 5 0RF liothyronine 5 mcg Tablet 5 mcg PO DAILY lamotrigine [Lamictal] 100 mg Tablet 100 mg PO QHS spironolactone 50 mg Tablet 50 mg PO DAILY Savella 100 mg Tablet 100 mg PO BID flurbiprofen 100 mg tablet 100 mg PO TID PRN (Reason: pain) Qty: 90 2RF Primary Care Provider: Aroldo Walton Referrals: Aroldo Walton MD [Primary Care Provider] - Devora Kendrick MD [Med Staff - Active Staff] - 3-5 Days Disposition Disposition: Home, Self Care
[2022-10-18 16:46] VITALS: BP 106/72; BP 116/75; BP 93/62; PULSE 107; PULSE 80; PULSE 91
[2022-10-18] MEDS: 0.9% Normal Saline 1,000 ML 1000 ML IV (17:02)
[2022-10-18 17:05] LABS: Absolute Lymphocyte Count 1.22 X10^3/uL (0.83-4.51); Basophil# 0.03 X10^3/uL; Basophil% 0.4 % (0-1); Hematocrit 42.5 % (37-47); Lymphocyte # 1.22 X10^3/ul (0.83-4.51); Lymphocyte % 15.7 % (19-41); Mean Corp Hgb Conc 32.9 g/dL (32-36); Mean Corpuscular Hgb 28.7 pg (27.0-32.0); Mean Corpuscular Volume 87.1 fL (81-99); Monocyte# 0.49 X10^3/uL; Monocyte% 6.3 % (0-10); NRBC Flagged by Analyzer 0 % (0-5); Platelet Count 299 K/mm3 (150-450); RBC Distribution Width CV 13.1 % (11.6-14.6); RBC Distribution Width SD 41.1 fl (35.1-43.9); Red Blood Count 4.88 M/mm3 (4.2-5.4); White Blood Count 7.8 K/mm3 (4.4-11.0)
[2022-10-18 17:10] LABS: Bacteria 0 SEEN /hpf (None Seen); White Blood Cells 0 SEEN /hpf (0-5)
[2022-10-18 17:19] LABS: ALB/GLOB Ratio 0.8 RATIO (0.9-2.4); AST(SGOT) 15 U/L (15-37); Alanine Aminotransfer ALT/SGPT 26 U/L (13-56); Albumin, Serum 3.2 g/dL (3.2-5.0); Alkaline Phosphatase 85 U/L (45-117); Anion Gap 5 (5-15); BUN 15 mg/dL (7-18); BUN/Creat Ratio 13.4 RATIO (10-20); Calcium,Total 9.2 mg/dL (8.5-10.1); Chloride 106 mmol/L (98-107); Creatinine, Serum 1.12 mg/dL (0.55-1.02); EST Glomerular Filtration Rate 55 mL/min (>60); Est Glom Filt Rate - Afr Amer 66 mL/min (>60); Estimated Creatinine Clearance 56.26 ml/min; Globulin 4.2 g/dL (2.2-4.2); Glucose 131 mg/dL (74-106); Lipase 28 U/L (13-75); Potassium 3.7 mmol/L (3.5-5.1); Protein, Total 7.4 g/dL (6.4-8.2); Sodium Level 135 mmol/L (136-145)
[2022-10-18 17:22] LABS: Color, Urine Yellow (Yellow); Glucose, Dipstick Normal (Normal); Ketone-Dipstick 50 mg/dl (Negative); Leukocyte Esterase-Dipstick 25 /ul (Negative); Nitrite-Dipstick Negative (Negative); Occult Blood-Urine 250 /ul (Negative); Protein-Dipstick 30 mg/dl (Negative); Specific Gravity, Urine 1.025 (1.002-1.030); Urine Clarity Clear (Clear); Urine Urobilinogen 4 mg/dl (Normal)
[2022-10-18 17:55] LABS: Urine Bilirubin Dipstick 3 mg/dL (Negative)
[2022-10-18 17:57] LABS: Red Blood Cells-Urine 25-50 SEEN /hpf (0-5); Squamous Epithelial Cells - UA 0-5 SEEN /hpf (5-10)
[2022-10-18 17:58] LABS: Hyaline Cast 25-50 SEEN /lpf (0-5)
[2022-10-18 17:59] LABS: Mucous, Urine 2+ /hpf (<or=2+)
[2022-10-18 18:47] VITALS: BP 107/88; PULSE 60; RESP 20; O2SAT 98
== END 2022-10-18 19:09 | disposition home or self-care (01) ==
PROVIDERS: Emergency Provider Emergency Medicine; PCP Family Medicine; Visit Provider Emergency Medicine
DX: R10.9 Unspecified abdominal pain (principal); M54.9 Dorsalgia, unspecified; R30.0 Dysuria
CPT/HCPCS: 74176; 80053; 81001; 83690; 85025; 87086; 87088; 96360; 96361; 99283; J7030; A4216

== ENCOUNTER → 2022-10-19 | Outpatient (CLI) | payer BC, SELFPAY ==
--- NOTE | 2022-10-19 09:48 | US_ITS ---
STUDY: ABDOMINAL ULTRASOUND REASON FOR EXAM: Female, 52 years old. RUQ pain, suprapubic pain, metrorrhagia, fever, chills TECHNIQUE: Transabdominal ultrasound was performed with real-time and static kendall scale imaging. TECHNICAL QUALITY: Adequate. COMPARISON: None. FINDINGS: Liver: The liver measures 16.3 cm. There is increased echogenicity consistent with fatty infiltration. The bile ducts are within normal limits. There is hepatic color flow. The direction of portal flow is hepatopetal. There is no demonstrated mass lesion. Portal vein measurement: Gallbladder: Normal distended gallbladder. The gallbladder wall is slightly thickened and measures 4 mm. There is a negative sonographic De Jesus''s sign. There is no pericholecystic fluid. There are multiple echogenic structures within the gallbladder, consistent with multiple gallstones. Sludge is also seen in the gallbladder. Common Bile Duct (C.B.D.): The common bile duct measures 4 mm. Pancreas: Normal size of the head, body and tail of the pancreas. There is normal echogenicity of the pancreas. There is no demonstrated pancreatic mass or cyst. Spleen: Normal size of the spleen. The spleen measures 10.7 cm x 5.2 cm x 5.3 cm. Right Kidney: Normal size of the right kidney. The right kidney measures 9 cm x 5.1 cm x 4 cm. Normal renal cortex. The right cortex measures 1.0 cm. There is no demonstrated renal mass or cyst. There is no right hydronephrosis. Left Kidney: Normal size of the left kidney. The left kidney measures 9.1 cm x 5 cm x 4.8 cm. Normal renal cortex. The left cortex measures 1.6 cm. There is no demonstrated renal mass or cyst. There is no left hydronephrosis. Aorta: Unremarkable I.V.C.: The IVC is patent. There is no ascites. IMPRESSION: Fatty infiltration of the liver. Multiple gallstones. Electronically Signed: Anthony Montejo MD at 14:52 EDT , STUDY: ABDOMINAL ULTRASOUND - ELASTOGRAPHY REASON FOR VISIT: Female, 52 years old. Right upper quadrant pain. TECHNIQUE: Liver stiffness measurements were obtained on a [employer] RS 85 ultrasound machine using a CA 1-7 probe following the SRU guidelines. 3 measurements were obtained using a 2-D-SWE method. TheIQR/M was 25 % suggesting a quality data set. TECHNICAL QUALITY: Adequate. COMPARISON: Comparison is made with prior study done earlier today. FINDINGS: Liver: Fatty infiltration of the liver. Multiple gallstones. Median liver stiffness measured 14 kPa. Abdomen: There is no demonstrated mass lesion. US/ABD Complete w/ Elastography IMPRESSION: Liver stiffness measures 14 kPa compatible with F3-F4 (Moderate to severe liver fibrosis) Metavir score. Electronically Signed: Anthony Montejo MD at 14:54 EDT ,
[2022-10-19 10:00] VITALS: BP 80/61; PULSE 84; RESP 14; O2SAT 95
[2022-10-19 10:37] VITALS: BP 107/65; PULSE 92; RESP 16; O2SAT 96
--- NOTE | 2022-10-19 10:51 | NURSING ---
Pt to to meet after discussing home care instructions and reasons to call 911. Patient verbalized understanding and agreeable to going home. This RN called Dr. groves's office and spoke to phone nurse to inform of recurrent episode of symptomatic low bp (ED visit last night, d/c home after work-up/IVF.). Phone nurse will send Dr. Groves a message.
== END | disposition home or self-care (01) ==
LOC: OPUS 09:46
PROVIDERS: PCP Family Medicine; Referring Provider Family Medicine; Visit Provider Family Medicine
DX: N92.1 Excessive and frequent menstruation with irregular cycle (principal); K76.0 Fatty (change of) liver, not elsewhere classified; K80.20 Calculus of gallbladder without cholecystitis without obstruction; R50.9 Fever, unspecified
CPT/HCPCS: 76700; 76981

== ENCOUNTER → 2022-10-24 | Outpatient (CLI) | payer BC, SELFPAY ==
[2022-10-24 15:36] LABS: Absolute Lymphocyte Count 1.42 X10^3/uL (0.83-4.51); Absolute Neutrophil Count 7.2 X10^3/uL (2.0-7.7); Basophil# 0.02 X10^3/uL; Basophil% 0.2 % (0-1); Hematocrit 42.8 % (37-47); Hemoglobin 13.8 g/dL (12.0-15.0); Lymphocyte # 1.42 X10^3/ul (0.83-4.51); Lymphocyte % 15.3 % (19-41); Mean Corp Hgb Conc 32.2 g/dL (32-36); Mean Corpuscular Hgb 28.7 pg (27.0-32.0); Mean Platelet Vol. 10.9 fl (6.2-12.0); Monocyte# 0.56 X10^3/uL; NRBC Flagged by Analyzer 0 % (0-5); Neutrophil # 7.23 X10^3/uL (2.7-7.7); Neutrophil % 78.1 % (47-70); Platelet Count 341 K/mm3 (150-450); RBC Distribution Width CV 13.1 % (11.6-14.6); RBC Distribution Width SD 42.7 fl (35.1-43.9); RET-HE 32.5 pg (30-35); Red Blood Count 4.81 M/mm3 (4.2-5.4); Reticulocyte Count 1.45 % (0.5-1.5); White Blood Count 9.3 K/mm3 (4.4-11.0)
[2022-10-24 15:54] LABS: Urine Sodium 30 mmol/L (Not Establ.)
[2022-10-24 16:08] LABS: Anion Gap 13 (5-15); BUN 15 mg/dL (7-18); BUN/Creat Ratio 16.8 RATIO (10-20); Calcium,Total 9.2 mg/dL (8.5-10.1); Chloride 106 mmol/L (98-107); Creatinine, Serum 0.89 mg/dL (0.55-1.02); EST Glomerular Filtration Rate 71 mL/min (>60); Est Glom Filt Rate - Afr Amer 86 mL/min (>60); Ferritin 54 ng/mL (8-252); Glucose 86 mg/dL (74-106); Iron 56 ug/dL (50-170); Iron Binding Capacity,Total 348 ug/dL (250-450); Potassium 3.7 mmol/L (3.5-5.1); Sodium Level 138 mmol/L (136-145)
[2022-10-24 16:35] LABS: Osmolality, Serum 294 mOsm/KG (275-295)
[2022-10-24 16:35] LABS: Osmolality, Urine 716 mOsm/KG
== END | disposition home or self-care (01) ==
LOC: MFPLAB 12:24
PROVIDERS: PCP Family Medicine; Visit Provider Family Medicine
DX: I95.9 Hypotension, unspecified (principal); N93.9 Abnormal uterine and vaginal bleeding, unspecified
CPT/HCPCS: 36415; 80048; 82728; 83540; 83550; 83735; 83930; 83935; 84300; 85025; 85045

== ENCOUNTER → 2022-11-01 | Outpatient (CLI) | payer BC, SELFPAY ==
--- NOTE | 2022-11-01 07:49 | NM_ITS ---
CLINICAL: 52-year-old female with history of cholelithiasis and right upper quadrant abdominal pain. RADIONUCLIDE HEPATOBILIARY SCINTIGRAPHY COMPARISON: Abdominal ultrasound report 10/19/2022, CT of the abdomen-pelvis report 10/18/2022 FINDINGS: Following the intravenous administration of 5.0 mCi of 99m Tc Mebrofenin, hepatobiliary images reveal: 1. Relatively prompt and homogeneous radiopharmaceutical concentration is noted by a normal sized liver. No parenchymal defects are identified. 2. Gallbladder activity is not identified during 60 minutes of sequential imaging. Gallbladder activity remains nonvisualized at 90 minutes and is identified at 120 minutes post radiopharmaceutical provision. 3. Small intestinal tract is observed at 6-7 minutes post radiopharmaceutical administration. 4. Washout of the radiopharmaceutical by the hepatic parenchyma appears qualitatively normal. NM/Hepatobilliary Imaging IMPRESSION: 1. ABNORMAL 99m Tc Mebrofenin hepatobiliary imaging examination. A. Nonvisualization of the gallbladder at 60 minutes post-radiopharmaceutical administration with visualization noted at 120 minutes post tracer provision is most consistent with a component of chronic cholecystitis in patients who have fasted for more than 4 and less than 24 hours, with an intermediate to high pretest probability of hepatobiliary illness and retained normal hepatocellular function. (Eric and Noel Chan, J Nucl Med 21: P17, 1980). Electronically Signed: Augustin Yoo, at 21:01 EDT ,
== END | disposition home or self-care (01) ==
LOC: NM 07:49
PROVIDERS: PCP Family Medicine; Referring Provider Family Medicine; Visit Provider Family Medicine
DX: R10.11 Right upper quadrant pain (principal)
CPT/HCPCS: 78226; A9537

== ENCOUNTER 2022-11-07 07:23 | Day surgery (SDC) | payer BC, SELFPAY ==
[2022-11-03 13:00] LABS: Thyroid Stim Hormone (TSH) 0.78 uIU/mL (0.358-3.74)
[2022-11-07 07:36] VITALS: BP 119/67; PULSE 77; RESP 18; TEMP 36; O2SAT 98; BMI 28.3
[2022-11-07] MEDS: Lactated Ringers 1,000 ML 15 ML IV (07:41)
--- NOTE | 2022-11-07 08:10 | HP.PCM_ITS ---
History and Physical Date of Admission: 11/07/22 Intake Vital Signs ? 10/19/2315:19 11/02/2312:51 Height 5 ft 6 in 5 ft 6 in Weight: ? 178 lb BMI ? 28.7 BP ? 101/70 Blood Pressure Location ? Rt brachial Position ? Sitting Respiration ? 17 Pulse ? 86 Pulse Source ? Monitor Temp ? 97.5 F L Temp Source ? Temporal Pulse Oximetry (%) ? 97 Oxygen Delivery Method ? room air Intake Visit Reasons:?GALLBLADDER Chief Complaint: gallbladder Is patient in pain?: Yes Allergies venlafaxine [From Effexor] Adverse Reaction (Severe, Verified 11/02/22 13:53) 'I LOST MY MIND'Penicillins Adverse Reaction (Intermediate, Verified 11/02/22 13:53) Swelling Medications L norgest/E estradiol-E estrad 0.15 mg-30 mcg (84)/10 mcg(7) tabs,3mos (Ashlyna) 1 tab PO DAILY 03/05/19 [History Confirmed 01/24/22] gabapentin 600 mg tablet 600 mg PO QHS 10/12/20 [History Confirmed 01/24/22] magnesium 200 mg tablet 400 mg PO DAILY 10/12/20 [History Confirmed 01/24/22] cholecalciferol (vitamin D3) 1,250 mcg (50,000 unit) capsule 1,250 mcg PO QWEEK #4 caps 01/24/21 [Rx Confirmed 01/24/22] levothyroxine 25 mcg tablet 25 mcg PO DAILY 01/24/21 [History Confirmed 01/24/22] flurbiprofen 100 mg tablet 100 mg PO TID PRN pain #90 tabs 04/14/21 [Rx C onfirmed 01/24/22] lamotrigine 100 mg tablet (Lamictal) 100 mg PO QHS 05/18/21 [History Confirmed 01/24/22] liothyronine 5 mcg tablet 5 mcg PO DAILY 05/18/21 [History Confirmed 01/24/22] milnacipran 100 mg tablet (Savella) 100 mg PO BID 05/18/21 [History Confirmed 01/24/22] ubrogepant 50 mg tablet (Ubrelvy) 50 mg Tablet#4 Samples 05/18/21 [Sample Confirmed 01/24/22] dexamethasone 6 mg tablet (Decadron) 6 mg PO DAILY #5 tabs 07/04/21 [Rx Confirmed 01/24/22] PFSH Medical History? Bipolar 1 disorder, depressed Fibromyalgia Generalized anxiety disorder GERD (gastroesophageal reflux disease) History of UTI Rheumatoid arthritis Thyroid disease Surgical History? History of tubal ligation Family History?(Updated 11/02/22 @ 13:51 by Nicole Templeton) Mother Breast cancer Thyroid disorderSister Thyroid disorder Social History? Smoking Status:? Never smoker Electronic Cigarette Use:? not used second hand exposure:? No alcohol intake:? current alcohol intake frequency: holidays/special occasions only substance use type:? does not use HPI HPI HPI: Patient is a 52-year-old female here for right upper quadrant pain.? She says has been going on for about 4 weeks.? She does describe some nausea but no vomiting.? She denies fevers or chills.? She has the pain wraps around her back. ROS General General: Yes weight change and fatigue; No appetite, colon cancer, breast cancer or weakness HEENT HEENT: Yes swollen glands; No difficulty swallowing, eye injury, eye surgery or hoarseness Endo Endocrine: Yes thyroid disease; No diabetes mellitus, thyroid cancer, Hair loss, heat intolerance or cold intolerance Skin Skin: No rash or changing moles Musc Musculoskeletal: No back problems, arthritis, rheumatoid arthritis, gout or joint pain Cardio Cardiovascular: No murmur, pacemaker, heart disease, atrial fibrillation, high blood pressure, heart attack, heart stent, palpitations, shortness of breat with exertion or chest pain Psych Psychiatric: Yes depression and anxiety; No hearing voices Resp Respiratory: No shortness of breath, No sleep apnea, No cough, No COPD, No asthma, No emphysema and No wheezing Gastro Gastrointestinal: Yes abdominal pain, Yes nausea or vomiting, No diarrhea, Yes constipation, No blood in stool, Yes acid reflux, No hemorrhoids, No ulcers, Yes gallbladder problem and No black,tarry stools Zeus Hematologic: No blood thinners, No blood disorders, No bleeding, No anemia and No blood clots Neuro Neurologic: No system reviewed and no additional complaints, except as documented, No as per HPI, No abnormal gait, No abnormal hearing, No abnormal movements, No abnormal speech, No behavioral changes, No burning sensations, No confusion, No convulsions, No disequilibrium, No dizziness, No localized weakness, No frequent falls, No headache(s), No lack of coordination, No loss of vision, No memory loss, No numbness, No other visual disturbances, No radicular pain, No restless legs, No sensory deficit, No syncope, No tingling, No tremor(s), No weakness and No other Exam Const General: cooperative Orientation: alert and oriented x3 HENMT Head: normal to inspection Neck Neck: normal visual inspection and full ROM Chest Chest palpation & inspection: normal inspection of the chest Resp Effort & Inspection: normal respiratory effort Auscultation: clear to auscultation bilaterally Cardio Rate: regular rate Rhythm: regular rhythm GI Inspection: non-distended Palpation: soft and tender in the RUQ Skin General: no rashes or lesions noted Neuro General: patient alert and patient oriented x3 Extrem General: full ROM Psych Appearance: grossly normal Mental Status: mental status grossly normal Assessment and Plan Assessment and Plan (1) Cholelithiasis: ?Status:?Acute ?Qualifiers: ?Cholelithiasis location:?gallbladder??Cholecystitis presence:?with cholecystitis??Cholecystitis acuity:?chronic??Biliary obstruction:?without biliary obstruction? Qualified Code(s):?K80.10 - Calculus of gallbladder with chronic cholecystitis without obstruction (2) Biliary colic: ?Status:?Acute Plan Patient is having right upper quadrant pain and had a HIDA that showed nonfilling.? She likely has chronic cholecystitis as the pain is not worsening and she is able to tolerate some food with minimal nausea.? I will get her scheduled for laparoscopic cholecystectomy next week.? I advised her that if anything worsens over the weekend she should come to the emergency room I will take care of her emergently. I discussed the procedure in detail with the patient.? I discussed the risks, benefits, and alternatives of the procedure.? I discussed the risks including but not limited to bleeding, infection, injury to surrounding organs such as the liver, bile duct, bowels.? I did discuss the possibility of having to convert to an open procedure as well as the possibility that if any injuries occurred this may necessitate further surgery at a tertiary care center. Tin Castellanos MD Pager: [facility] [address] [place] [address], [address] [place] [address] Office: I have examined the patient and the H&P has been reviewed. There are no clinical changes since date of exam.
--- NOTE | 2022-11-07 08:58 | RAD_ITS ---
STUDY: INTRAOPERATIVE CHOLANGIOGRAM. REASON FOR EXAM: Female, 52 years old. LAP DIANE WITH IOC FLUOROSCOPY TIME (if supplied): ( 15 seconds. ) minutes/seconds. A 6.33 mGy TECHNIQUE: An intraoperative cholangiogram was performed by the surgeon. Imaging was submitted. COMPARISON: None. FINDINGS: The common bile duct is not dilated. No intraluminal filling defect is seen. There is free flow of contrast into the duodenum. RAD/Cholangiogram/ O R,Initial IMPRESSION: Unremarkable intraoperative cholangiogram. Electronically Signed: Anthony Montejo MD at 11:05 EDT ,
--- NOTE | 2022-11-07 09:00 | GALL_PTH ---
PATIENT: ROMEO TURPIN [place] [facility] [place][id number] AGE/SX: 52/F ROOM: RE11/07/[address]: Dr. Tin Castellanos MD : 1970 BED: DIS: 11/07/2022 SPEC #: [id number] RECD: 11/07/22 10:10 STATUS: JACK HAIDERHeena #: [id number] BRODY: 11/07/22 09:[address]: Tin Castellanos DEPT: SURGICAL PATHOLOGY RECD BY: Andrea Azul ENTERED: 11/07/22 12:48 SP TYPE: MAHNAZ FLORES DR: Dr. Aroldo Walton MD Tissues: Gallbladder, NOS Procedures: Surgery Specimen Level III HEADER OPERATION: Laparoscopic cholecystectomy with IOC PRE-OP DIAGNOSIS: Cholelithiasis, biliary colic TISSUE SUBMITTED: Gallbladder MICROSCOPIC DIAGNOSIS Gallbladder, cholecystectomy: Chronic cholecystitis, cholelithiasis and cholesterolosis. SJ:candace 11/08/2022 MICROSCOPIC DESCRIPTION Slides are reviewed. GROSS DESCRIPTION Received is one container labeled with the patient's name and designated gallbladder. The specimen consists of a gallbladder measuring 7.5 x 3.0 x 2.5 cm. The external surface is smooth and glistening. Focally, it is granular, hemorrhagic and contains cautery artifact. The lumen of the gallbladder contains yellow-green mucoid bile and two mulberry, yellow calculi averaging 1.3 cm each. The mucosa is bile-stained and without any mass lesions. The gallbladder wall averages 0.2 cm in thickness and is free of mass lesions. Titrator sections of the gallbladder and the cystic duct at margin of resection are submitted in one cassette. / AM:candace 11/07/2022 TC:3 CPT: 79636
[2022-11-07] MEDS: Bupivacaine 0.25% 30 ML Vial (09:33)
--- NOTE | 2022-11-07 09:38 | OP.PCM_ITS ---
Report of Operation Date of Procedure: 11/07/22 Pre-Operative Diagnosis: Biliary colic and cholelithiasis Post-Operative Diagnosis: Same Surgery/Procedure Performed:: Laparoscopic cholecystectomy with cholangiograms Specimen's removed: Gallbladder Estimated Blood Loss (mL): 10 Description of Procedure: After obtaining informed consent patient was brought back to the operating room. General anesthesia was induced. The abdomen was prepped and draped in usual sterile fashion. A small midline incision was made superior to the umbilicus and deepened to the level of fascia. The fascia was elevated and incised. Next the peritoneum was elevated and incised in the same fashion. Finger sweep was performed and the Flores trocar was placed into the abdomen. The balloon was inflated. The abdomen was inflated to 15 mmHg. Next a camera was introduced into the abdomen and the abdomen was inspected. Next under direct visualization three 5-mm ports were placed one subxiphoid and 2 subcostal. Next the gallbladder was elevated and retracted toward the right shoulder. The peritoneum was stripped from the gallbladder. The infundibulum was located and retracted laterally. Next the triangle of Calot was dissected and the cystic duct and cystic artery were identified. Cholangiograms were performed. The Mann clamp was used to clamp across the infundibulum and the catheter needle wa s inserted into the gallbladder. Under fluoroscopy contrast was instilled into the gallbladder and the common duct, cystic duct as well as proximal hepatic ducts were identified. There was good filling of the duodenum. There were no filling defects noted in the common bile duct. The clamp was removed as well as the needle and the infundibulum was grasped once more. Three hemolock clips were placed across the cystic duct. The cystic duct was then divided leaving 2 clips on the stump. The cystic artery was clipped and divided in the same fashion. The hook cautery was then used to take the gallbladder off of the gallbladder bed. Hemostasis was obtained. Gallbladder fossa was irrigated and no active bleeding or bile leakage was noted. Next the camera was introduced in the subxiphoid port. An Endopouch bag was placed through the umbilical port and the gallbladder was placed into it. The gallbladder was then removed through the umbilical incision. The camera was then reinserted through the umbilical port. Gallbladder fossa was sprayed with Surgicel powder and fibrillar foam was placed to aid in hemostasis. There was good hemostasis after that. The gallbladder fossa was inspected once more and noted to be hemostatic with no leaking bile. The abdomen was suctioned dry. The 5 mm ports were removed under direct visualization. The umbilical port was then removed and the air was removed from the abdomen. Next using an 0 Vicryl suture the umbilical fascia was closed in a [id number] fashion. The umbilical port site was irrigated local anesthetic was administered to all the incisions. All the incisions were closed with interrupted subcuticular 4-0 Monocryl sutures followed by Steri- Strips and dressings. The patient was awoken and taken to PACU in stable cond ition. Admit VTE Documentation VTE Mechan Device Prophylaxis: SCD's
--- NOTE | 2022-11-07 09:40 | DCINST_ITS ---
Discharge Instructions Procedure Gallbladder Diet Discharge Diet: Light diet - advance as tolerated Activity Discharge Activity: May Not Drive (for 2-3 days or while taking narcotic pain medications.) and - (Do not drive, work heavy equipment or sign legal documents for 24 hours.) May shower in (days): 1 Lifting Restrictions: 20 lbs for 2 weeks Additional Activity Instructions:: Pain medication may cause nausea. You should typically eat light foods as you take your pain medications. Pain medication may also cause constipation. If this is a problem for you, please discuss with your doctor. Dressing / Incision Call your doctor if your incision/area has: Continuous Slow Oozing, Sudden Increased Bleeding, Increased Pain/ Swelling, Increased Redness and Foul Smelling Discharge Call your doctor if you observe: Fever of 101 or Higher Suture Line Care: Avoid Pulling/Pushing and Avoid Pinching/Bending Remove Dressing in: 2 days Additional Dressing/Incision Instructions:: Leave operative bandaids on for 2 days. When you remove dressing, leave Steri-Strips on until your follow-up appointment, or until the Steri-Strips fall off on their own. Follow Up Care Please Follow Up With: Tin Castellanos MD When: Please call to schedule 2 week follow up appointment. [phone] Test Results: Test results from this visit will be discussed in further detail at your follow- up appointment, if applicable. Discharge Plan Admission Attending Provider: Tin Castellanos Primary Care Provider: Aroldo Walton Instructions Additional Instructions / Restrictions: Ibuprofen and Tylenol for pain, oxycodone for breakthrough. Discharge Orders/Prescriptions Prescriptions: New acetaminophen 325 mg Tablet 650 mg PO Q4H PRN PRN (Reason: Pain Or Fever) Qty: 0 0RF oxycodone 5 mg Tablet 5 - 10 mg PO Q4H PRN PRN (Reason: Pain Score 4-10/10) 5 Days Qty: 20 0RF Continued L norgest/e.estradiol-e.estrad [Ashlyna] 0.15 mg-30 mcg (84)/10 mcg (7) tablets,dose pack,3 month 1 tab PO DAILY gabapentin 600 mg tablet 300 mg PO QHS magnesium 200 mg tablet 400 mg PO DAILY levothyroxine 25 mcg tablet 25 mcg PO DAILY Label Comments: take 1 tablet by mouth every morning cholecalciferol (vitamin D3) 1,250 mcg (50,000 unit) capsule 1,250 mcg PO QWEEK Qty: 4 2RF liothyronine 5 mcg Tablet 5 mcg PO DAILY lamotrigine [Lamictal] 100 mg Tablet 150 mg PO QHS famotidine 40 mg Tablet 40 mg PO QHS pregabalin [Lyrica] 50 mg Capsule 50 mg PO DAILY fluoxetine 20 mg capsule 60 mg PO DAILY Trulicity 4.5 mg/0.5 mL Pen Injector 4.5 mg SUBCUT TH flurbiprofen 100 mg tablet 100 mg PO TID PRN (Reason: pain) Qty: 90 2RF Referrals / Follow Up: Aroldo Walton MD [Primary Care Provider] - Disposition Disposition (needs filled in before D/C Order can be placed): Home, Self Care
[2022-11-07 09:50] VITALS: BP 116/56; PULSE 95; RESP 16; TEMP 36.4; O2SAT 94
[2022-11-07 10:00] VITALS: BP 110/64; PULSE 76; RESP 16; O2SAT 98
[2022-11-07 10:08] VITALS: BP 116/68; PULSE 78; RESP 16; TEMP 36.2; O2SAT 100
[2022-11-07 11:41] VITALS: BP 119/67; BP 129/85; PULSE 64; RESP 16; TEMP 36.1; O2SAT 100
== END 2022-11-07 11:45 | disposition home or self-care (01) ==
LOC: SDC 07:24 → AC 07:25
PROVIDERS: Anesthesiology; PCP Family Medicine; Referring Provider Surgery; Visit Provider Surgery
PROC: (CPT 47610; principal; 2022-11-07 08:40)
DX: K80.10 Calculus of gallbladder with chronic cholecystitis without obstruction (principal); F32.A Depression, unspecified; F41.9 Anxiety disorder, unspecified; E55.9 Vitamin D deficiency, unspecified; K21.9 Gastro-esophageal reflux disease without esophagitis; E07.9 Disorder of thyroid, unspecified; Z86.16 Personal history of COVID-19; Z79.899 Other long term (current) drug therapy
CPT/HCPCS: 47563; 00790; 36415; 74300; 76000; 84443; 88304; J7120; J2405

== ENCOUNTER → 2023-03-16 | Outpatient (CLI) | payer BC, SELFPAY ==
--- NOTE | 2023-03-16 10:57 | US_ITS ---
INDICATION: NUMBNESS AND TINGLING -- L PAROTID AREA, NEUROPATHIC PAIN EXAMINATION: Ultrasound US Head/Neck Soft Tissue TECHNIQUE: Wallace scale and color doppler imaging was performed of the thyroid gland. COMPARISON: No relevant prior comparison study available FINDINGS: RIGHT PAROTID GLAND: Measures about 3 x 3 x 1 cm. No definite focal mass is seen in the parotid gland region. There is a 1.1 cm node in the right parotid region. LEFT PAROTID GLAND: Measures about 3.5 x 3 x 1.5 cm. No definite focal mass is seen in the parotid gland the region. There is a 1.5 cm node in the left parotid region. There are a few additional nodes posterior to the parotid gland, the largest measures about 1.9 cm. US/Head/Neck Soft Tissue IMPRESSION: Few nodes in both sides of the neck which could be reactive. Electronically Signed: Issa Pardo MD at 12:28 EDT ,
== END | disposition home or self-care (01) ==
LOC: US 10:55
PROVIDERS: PCP Family Medicine; Referring Provider Family Medicine; Visit Provider Family Medicine
DX: R20.2 Paresthesia of skin (principal); R20.0 Anesthesia of skin
CPT/HCPCS: 76536

== ENCOUNTER → 2023-03-27 | Outpatient (CLI) | payer BC, SELFPAY ==
[2023-03-27 12:16] LABS: Absolute Neutrophil Count 7.4 X10^3/uL (2.0-7.7); Basophil# 0.05 X10^3/uL; Basophil% 0.5 % (0-1); Hematocrit 41.8 % (37-47); Hemoglobin 13.6 g/dL (12.0-15.0); Lymphocyte % 22.1 % (19-41); Mean Corp Hgb Conc 32.5 g/dL (32-36); Mean Corpuscular Hgb 28.9 pg (27.0-32.0); Mean Corpuscular Volume 88.7 fL (81-99); Mean Platelet Vol. 9.7 fl (6.2-12.0); Monocyte# 0.66 X10^3/uL; Monocyte% 6.3 % (0-10); NRBC Flagged by Analyzer 0 % (0-5); Neutrophil # 7.38 X10^3/uL (2.7-7.7); Neutrophil % 70.7 % (47-70); Platelet Count 363 K/mm3 (150-450); RBC Distribution Width CV 13.5 % (11.6-14.6); RBC Distribution Width SD 43.8 fl (35.1-43.9); Red Blood Count 4.71 M/mm3 (4.2-5.4); White Blood Count 10.4 K/mm3 (4.4-11.0)
[2023-03-27 12:50] LABS: Erythrocyte Sedimentation Rate 13 mm/hr (0-30)
[2023-03-27 13:01] LABS: ALB/GLOB Ratio 0.9 RATIO (0.9-2.4); AST(SGOT) 12 U/L (15-37); Alanine Aminotransfer ALT/SGPT 15 U/L (13-56); Albumin, Serum 3.5 g/dL (3.2-5.0); Alkaline Phosphatase 75 U/L (45-117); Anion Gap 10 (5-15); BUN 9 mg/dL (7-18); BUN/Creat Ratio 8.3 RATIO (10-20); Calcium,Total 9.6 mg/dL (8.5-10.1); Chloride 102 mmol/L (98-107); Creatinine, Serum 1.08 mg/dL (0.55-1.02); EST Glomerular Filtration Rate 57 mL/min (>60); Est Glom Filt Rate - Afr Amer 69 mL/min (>60); Globulin 4.1 g/dL (2.2-4.2); Glucose 99 mg/dL (74-106); Protein, Total 7.6 g/dL (6.4-8.2); Sodium Level 135 mmol/L (136-145)
[2023-03-30 12:09] LABS: Angiotensin Convert Enzyme 20 U/L (14-82); QNTFERON TB Mitogen Value > 10.00 IU/mL (.); QNTFERON TB Nil Value 0.07 IU/mL (.); QNTFERON TB1+ Ag Value 0 IU/mL (.); QNTFERON TB2+ Ag Value 0 IU/mL (.); QNTIFERON TB Positive Criteria Negative (Negative)
== END | disposition home or self-care (01) ==
LOC: MFPLAB 11:08
PROVIDERS: PCP Family Medicine; Visit Provider Family Medicine
DX: R59.0 Localized enlarged lymph nodes (principal)
CPT/HCPCS: 36415; 80053; 82164; 85025; 85652; 86140; 86480

== ENCOUNTER 2023-11-06 13:30 | Outpatient (RCR) | payer MEDICARE, BC, SELFPAY ==
--- NOTE | 2023-10-11 07:50 | HP.PTEVAL ---
Patient's Visit Information Visit Information Visit Information: ROMEO TURPIN is a 53 year old F referred to Physical Therapy by Dr. Aroldo Walton MD with a diagnosis of Fibromyalgia. Date of Evaluation: 10/10/23 Physical Therapist: Eduin Sandoval DPT Visit Plan Frequency: 1x/Week Duration: 6 Weeks Plan: Start with progressive walking program. Add in gym machine exercises both for LE and UE. Keep attention to her thoracic and lumbar spine symptoms. Add in HS and hip flexor stretching. Subjective Subjective: Pt. us here today for her initial evaluation with diagnosis of Fibromyalsia. Pt. reports having more and more issues over the past few years. She is now to a point were she wants get back to being more active and wants to be able complete with less back pain. Pt. has not been very active over the past few years. Pt. does have increased pain in her lumbar spine, no imaging noted. No radicular symptoms reported. No N/T, no changes in B & B. Pt. is hopeful to get a routine to progress back into exercises, but is cautious due to her chronic pain. She has started a slight walking routine with pretty good tolerance. Pain Lumbar spine: Pain Intensity (Out of 10): 2 Pain Intensity Range: 1 and 5 Comment: upper lumbar/thoracic spine Objective Objective: POSTURE: Pt. has decent posture in stance, slight PPT. and slight increase in thoracic kyphosis. Normal wt. shift. PALPATION: Pt. has tenderness along thoracic and lumbar erector spinae. NEURO: normal throughout. ROM: LUMBAR SPINE: flexion min loss increase NW, ext min loss increase NW, SB nil loss bilat, rotation min loss bilat increase NW. Pt. has very tigth bilateral HS and hip flexors. Tight hip ER motions as well. MMT: RLE: ankle 5/5 throughout; knee: ext 23.6#, flexion 17.4#; hip: flex 21.1#, abd 17.6#, ext 14.3#. LLE: ankle 5/5 throughout; knee: ext 22.4#, flexion 18.4#; hip: flexion 18.9#, abd 17.9#, ext 15.6#. Core strength:poor. GAIT: pt. has fairly normal gait pattern withtout increase in symptoms. resting HS: 81 BPM. 6MWT: 1469, HR increased to 105 BPM. STAIRS: normal. Balance/Special Test Scores Lower Extremity Functional Score: 53 Goals Goal 1:: LTG: Pt. to be I with gym based program for BLE and UE strengthening. Goal Time Frame: 4-6 Weeks Goal 2:: STG: Pt. to start a progressive walking program. Goal Time Frame: 2-4 Weeks Goal 3:: LTG: Pt. to have increased BLE and core strength by 5# throughout indicating increased overall strength. Goal Time Frame: 4-6 Weeks Goal 4:: LTG: Pt. to increased distance walked with 6 MWT to greater than 1650feet. Goal Time Frame: 4-6 Weeks Goal 5:: LTG: pt. to report decreased thoracolumbar pain to less than 3/10 with all activities. Goal Time Frame: 4-6 Weeks Rehabilitation Potential Physical Therapy Diagnosis: Pt. has signs and symptoms of fibromyalgia with overall decreased levels of fitness and tolerance to functional mobility. Pt. would benefit from PT to start a fitness routine providing framework for a healthy life style. Rehabilitation Potential: Excellent Anticipated Interventions Patient/Client Instruction: Educate patient on: Condition, Plan of Care, Risk Factors and Benefits of Fitness Program For the Purpose of:: To foster healthy habits, To improve decision making, To facilitate caregiver knowledge, To improve self management, To prevent re-injury and To improve ability to perform tasks related to life management Therapeutic Exercise to Include: Strength training, Power training, Endurance training, Balance training, Coordination, Flexibilty training, Gait and locomotor training, Passive ROM and Active ROM For the Purpose of:: To decrease pain, To increase ROM, To improve nutrient delivery to tissue, To increase oxygenation perfusion, To improve muscle performance and motor function and To improve ability to perform ADL's Text: Thank you for the opportunity to evaluate your patient. For Medicare and Medicare HMO plans, please review the plan of care and approve it. It will need to be FAXED BACK to us at [phone] for Medicare purposes. For Medicare only, by signing this I certify the plan of care. Please let me know if there are questions or concerns regarding this plan of care. Physician Signature: Date:
--- NOTE | 2023-11-29 07:09 | HP.PT.NRP ---
Patient Information Patient Information: ROMEO TURPIN was seen in my office for initial evaluation on 10/10/23. The following Plan of Care was established for this patient: POC Established Initial Frequency: 1x/Week Initial Duration: 6 Weeks Anticipated Interventions Patient/Client Instruction: Educate patient on: Condition, Plan of Care, Risk Factors and Benefits of Fitness Program For the Purpose of:: To foster healthy habits, To improve decision making, To facilitate caregiver knowledge, To improve self management, To prevent re-injury and To improve ability to perform tasks related to life management Therapeutic Exercise to Include: Strength training, Power training, Endurance training, Balance training, Coordination, Flexibilty training, Gait and locomotor training, Passive ROM and Active ROM For the Purpose of:: To decrease pain, To increase ROM, To improve nutrient delivery to tissue, To increase oxygenation perfusion, To improve muscle performance and motor function and To improve ability to perform ADL's Last Seen Last Seen: This patient was last seen in our office 11/06/23. Pertinent comments regarding their Physical therapy will appear below: Pt. called in today and reports that she is doing well and does not need PT any more at this point in time. Pt. will be DC from PT this date to HEP on her own. At this point I will be discontinuing this patient from physical therapy. I would be happy to see this patient again in the future if found appropriate by the physician. Thank you! Eduin Sandoval, DPT Balance/Gait/Functional tests Balance/Special Test Scores Lower Extremity Functional Score: 53
== END 2023-11-06 19:00 | disposition home or self-care (01) ==
LOC: PT 13:30
PROVIDERS: PCP Family Medicine; Referring Provider Family Medicine; Visit Provider Family Medicine
DX: M79.7 Fibromyalgia (principal)
CPT/HCPCS: 97110; 97161